=== PATIENT | female | born 1945 ===

== ENCOUNTER 2020-06-07 07:04 | Emergency (ER) | payer MEDICARE, MEDICAID, SELFPAY ==
--- NOTE | 2020-06-07 07:17 | XR_ITS ---
EXAMINATION: XR SHOULDER, LEFT CLINICAL INFORMATION: Pain post fall COMPARISON: None TECHNIQUE: 2 views of the left shoulder. FINDINGS: There is acute angulation of the left lateral humeral neck and greater tuberosity. There is also a transverse faint line of increased sclerosis in the left humeral neck. Findings are suggestive of nondisplaced fracture. Glenohumeral alignment is normal. There is mild arthritis at the acromioclavicular joint. There is faint soft tissue calcification superior to the humeral head. XR/XR shoulder LT min 2V IMPRESSION: Probable nondisplaced humeral neck fracture involving the greater tuberosity.
--- NOTE | 2020-06-07 07:17 | ED.FALL ---
HPI - Fall General Chief Complaint: Fall Stated Complaint: fall, left arm/shoulder pain Time Seen by Provider: 06/07/20 07:17 Source: patient and EMS Mode of arrival: EMS Limitations: no limitations History of Present Illness MD complaint: fall Onset (ago): minute(s) (just [employer]) Fall from: standing Fall witnessed: no Place fall occurred: home Loss of consciousness: none Prolonged down time: no Symptoms prior to fall: none Context: tripped/slipped Location of injury - extremities: left: arm Related Data Previous Rx's Medication Instructions Recorded ondansetron 4 mg PO Q8H PRN #20 tab 06/07/20 oxycodone 5 mg PO Q6H PRN #20 tab 06/07/20 walker #1 ea 06/07/20 Allergies Allergy/AdvReac Type Severity Reaction Status Date / Time Sulfa (Sulfonamide Allergy Mild N/V Unverified 03/02/20 14:34 Antibiotics) Sulfamethoxazole Allergy Unknown vomiting Uncoded 02/08/20 00:00 Review of Systems Review of Systems: Constitutional : No Fever, No Chills ENT/Mouth : No Ear Pain, No Hoarseness, No sore throat Eyes: No Eye Pain, No Swelling, No Redness, No Foreign Body Cardiovascular : No Chest Pain, No SOB Respiratory : No Cough, No Dyspnea Gastrointestinal : No Nausea, No Vomiting, No Diarrhea, No abdominal Pain Genitourinary : No Dysuria, No Hematuria Musculoskeletal : positive joint pain, No Myalgias, No Joint Swelling Skin : No Skin lacerations, No rash Neuro : No Weakness, No Numbness, No Loss of Consciousness, No Dizziness, No Headache Psych : No Anxiety/Panic, No Depression Heme/Lymph: no easy bruising, no Lymphadenopathy Endocrine : No Polyuria, No Polydipsia All other systems reviewed and are negative [facility] Past Medical History Attestation statement: The following information was validated with the patient. Medical History COPD (chronic obstructive pulmonary disease) Diabetes HTN (hypertension) Osteosarcoma Social History Social History (Updated 06/07/20 @ 07:39 by Fatmata Bay DO) Alcohol intake: never Smoking Status: Former smoker Smoked in Last 30 Days: No Use of substances other than those prescribed or required for medical reasons: No Advance Directives: No Advance Directives Information Provided: Yes Physical Exam Vital Signs: Vital Signs: Last Vital Signs Temp 98.0 F 06/07/20 07:52 Pulse 87 06/07/20 09:01 Resp 13 06/07/20 09:01 BP 157/82 H 06/07/20 09:01 Pulse Ox 93 06/07/20 09:01 Body Mass Index 26.9 Appearance: Alert. Oriented X3. No acute distress. Eyes: Pupils equal, round and reactive to light. ENT: Pharynx normal. Neck: Normal inspection. Neck supple. CVS: Normal heart rate and rhythm. Pulses normal. Respiratory: No respiratory distress. Breath sounds normal. Abdomen: Soft and nontender. Skin: Skin warm and dry. Normal skin color. Normal skin turgor. Extremities: No lower extremity edema. No calf ttp L prosthetic BKA, LUE distal NV intact, ttp along L prox humerus Neuro: Oriented X 3. No motor deficit. No sensory deficit. Course Course Course Narrative: patient doing well with tripod walker cleared by PT for home CM involved for help getting walker, Rx sent for pati walker Procedures Orthopedic Splinting/Casting Injury #1: Side: left Upper Extremity Injury Location: upper arm Upper Extremity Immobilizer: sling/shoulder immobilizer MDM - Fall MDM Narrative Medical decision making narrative: 75 yo female tripped on her slipper fell no head or neck pain isolated injury to L upper arm - distal NV intact, will give pain medications and xray, dispo per result and findings, no AC therapy Discharge Plan Discharge Clinical Impression: Fracture, humerus Qualifiers: Encounter type: initial encounter Humerus Location: surgical neck Fracture type: closed Fracture morphology: unspecified fracture morphology Fracture alignment: nondisplaced Laterality: left Qualified Code(s): S42.215A - Unspecified nondisplaced fracture of surgical neck of left humerus, initial encounter for closed fracture Patient Disposition: Home, Self-Care Instructions: Proximal Humerus Fracture (ED) Additional Instructions: return to ED for any worsening symptoms or concerns wear sling except to shower until cleared Prescriptions: New ondansetron 4 mg tablet,disintegrating 4 mg PO Q8H PRN (Reason: nausea and vomiting) Qty: 20 RF: 0 oxycodone 5 mg tablet 5 mg PO Q6H PRN (Reason: pain) Qty: 20 RF: 0 (DME) walker Misc See Rx Instructions .ROUTE .MEDSUPPLY Qty: 1 RF: 0 Referrals: Raymond Simmons PA-C [Physician Gun Stock Checker] - 2 weeks
[2020-06-07 07:21] VITALS: BP 170/66; BP 183/81; PULSE 79; PULSE 98; RESP 14; TEMP 36.7; O2SAT 96; O2SAT 98; BMI 26.9
[2020-06-07 07:52] VITALS: BP 183/81; PULSE 98; RESP 14; TEMP 36.7; O2SAT 98
[2020-06-07] MEDS: oxyCODONE HCl Immed Release 5 MG TABLET PO (08:34)
--- NOTE | 2020-06-07 08:42 | PC.NURSE ---
pt has been medicated for pain, has sling applied to left arm and awaits dispo. She was medicated for pain and is resting quietly.
[2020-06-07 09:01] VITALS: BP 157/82; PULSE 87; RESP 13; O2SAT 93
--- NOTE | 2020-06-07 09:06 | PC.NURSE ---
Md asked for pt ambulation trial. Pt states she uses a walker, will not be able to use walker with arm sling. MD ordered PT consult for tripod cane or cane.
[2020-06-07 10:07] VITALS: BP 157/82; PULSE 87; O2SAT 93
--- NOTE | 2020-06-07 10:57 | MHC.CM.ED ---
Received case management consult. Patient came to ER after a fall. Found to have left humerus fracture. Physical therapy eval completed. Home services and a hemiwalker are recommended. Met with patient in regards to d/c planning. Patient lives at [facility], uses a walker for mobility and had no services prior to coming to the ER. PCP verified. Patient agreeable to referral to [facility]. [facility] is not able to accept patient because the facility will not allow them into the building because they treat Covid patients. Referral broadcasted in [employer] Action chair van arranged via [employer] with chart. Patient, Dr Bay and Aliza PINA aware. Continue to monitor for d/c needs.
== END 2020-06-07 11:48 | disposition home or self-care (01) ==
PROVIDERS: Emergency Provider Emergency Medicine; PCP Hospitalist
DX: S42.215A Unspecified nondisplaced fracture of surgical neck of left humerus, initial encounter for closed fracture (principal); W01.0XXA Fall on same level from slipping, tripping and stumbling without subsequent striking against object, initial encounter; E11.9 Type 2 diabetes mellitus without complications; I10 Essential (primary) hypertension; Y93.9 Activity, unspecified; Y92.019 Unspecified place in single-family (private) house as the place of occurrence of the external cause; Y99.9 Unspecified external cause status
CPT/HCPCS: 73030; 97162; 99284

== ENCOUNTER 2020-06-27 11:44 | Outpatient (REF) | payer MEDICARE, MEDICAID, SELFPAY ==
--- NOTE | 2020-06-27 13:31 | XR_ITS ---
EXAMINATION: XR SHOULDER, LEFT CLINICAL INFORMATION: Displaced fracture greater tuberosity COMPARISON: June 07, 2020 TECHNIQUE: Two views of the left shoulder. FINDINGS: There is stable appearance of the surgical neck nondisplaced fracture of the left humeral head with essentially nondisplaced fracture of the greater tuberosity. No dislocation is evident. There is calcific tendinitis seen. No periosteal new bone formation appreciated. XR/XR shoulder LT min 2V IMPRESSION: No significant change in alignment of proximal left humeral neck and greater tuberosity fracture. Calcific tendinitis.
== END 2020-06-27 11:45 | disposition home or self-care (01) ==
LOC: HO.HOSX 11:44
PROVIDERS: Visit Provider Physician Assistant
DX: S42.253A Displaced fracture of greater tuberosity of unspecified humerus, initial encounter for closed fracture (principal); Z87.891 Personal history of nicotine dependence
CPT/HCPCS: 73030; 99202

== ENCOUNTER 2020-07-20 12:18 | Outpatient (REF) | payer MEDICARE, MEDICAID, SELFPAY ==
--- NOTE | ~2020-07-20 | XR_ITS ---
EXAMINATION: XR SHOULDER, LEFT CLINICAL INFORMATION: Fracture of the upper end of the left humerus. COMPARISON: 06/27/2020 TECHNIQUE: Two views of the left shoulder. FINDINGS: There is a fracture of the right humeral neck again noted. Unchanged alignment from prior with mild impaction. Increased sclerosis along the fracture line with early periosteal reaction seen. The glenohumeral joint is well aligned with small marginal osteophytes present. The acromioclavicular joint is intact. The visualized lung is clear. The visualized ribs are intact. XR/XR shoulder LT min 2V IMPRESSION: Unchanged alignment of the left humeral neck fracture with increased sclerosis along the fracture margin and early periosteal reaction.
== END 2020-07-20 12:19 | disposition home or self-care (01) ==
LOC: HO.HOSX 12:18
PROVIDERS: Visit Provider Physician Assistant
DX: S42.202D Unspecified fracture of upper end of left humerus, subsequent encounter for fracture with routine healing (principal)
CPT/HCPCS: 73030; 99212

== ENCOUNTER → 2020-07-20 14:29 | Outpatient (BNVA) | payer MEDICARE, MEDICAID, SELFPAY | PROVIDERS: PCP Hospitalist; Visit Provider Physician Assistant | DX: S42.202D Unspecified fracture of upper end of left humerus, subsequent encounter for fracture with routine healing (principal) | CPT/HCPCS: 73030; 99212 ==

== ENCOUNTER 2024-03-25 20:38 | Emergency (ER) | payer MEDICARE, MEDICAID, SELFPAY ==
--- NOTE | ~2024-03-25 | XR_ITS ---
EXAMINATION: XR SHOULDER, RIGHT CLINICAL INFORMATION: Pain after fall COMPARISON: Humeral radiographs performed earlier in the day on March 25, 2024 TECHNIQUE: AP and Y view of the right shoulder. FINDINGS/ XR/XR shoulder RT min 2V IMPRESSION: Minimally displaced two-part humeral head fracture. Glenohumeral joint remains located. Soft tissue structures within normal limits. Electronically signed by: Kit Mandujano DO 03/25/2024 11:11 PM EDT
--- NOTE | ~2024-03-25 | XR_ITS ---
EXAMINATION: XR HUMERUS, RIGHT CLINICAL INFORMATION: Fall, pain COMPARISON: None available. TECHNIQUE: AP and lateral views of the right humerus. FINDINGS/ XR/XR humerus RT IMPRESSION: Overhanging osteophyte versus minimally displaced fracture of the humeral head. This is only appreciated on the AP view. Recommend further evaluation with dedicated shoulder radiographs. Electronically signed by: Kit Mandujano DO 03/25/2024 09:58 PM EDT
[2024-03-25 20:43] VITALS: BP 129/59; BP 130/68; PULSE 60; PULSE 70; RESP 18; TEMP 36.7; O2SAT 93; O2SAT 94; BMI 28.9
[2024-03-25 20:50] VITALS: BP 129/59; PULSE 60; RESP 18; TEMP 36.7; O2SAT 93
[2024-03-25] MEDS: Acetaminophen 325 MG TABLET 650 MG PO (21:29)
[2024-03-25] MEDS: Lidocaine HCl 1 % MPF 2 ML VIAL 4 ML INFILTRATI (22:20)
--- NOTE | 2024-03-25 22:23 | ED_ITS ---
HPI - Fall General Chief Complaint: Fall Stated Complaint: FALL WITH 1/2 INCH ARM LACERATION Time Seen by Provider: 03/25/24 21:09 Source: patient and EMS Mode of arrival: EMS Limitations: no limitations History of Present Illness ED Provider: Dr. Astrid Vega HPI Narrative: The emergency room complaining of a fall. Patient states that she was walking from the bathroom towards her bedroom and she landed on her right shoulder. Patient states that she did not hit her head and did not lose consciousness. Patient states that she only takes aspirin, no other blood thinners. Patient donnelly stained a laceration to left forearm. Patient states that her right shoulder area/humerus area hurts the most. Related Data Home Medications ?Medication ?Instructions ?Recorded ?Confirmed albuterol sulfate 90 mcg/actuation 1 inh inhalation QID 06/22/20 aerosol inhaler (ProAir HFA) amlodipine 5 mg tablet 5 mg PO DAILY 06/22/20 atorvastatin 20 mg tablet (Lipitor) 20 mg PO DAILY 06/22/20 budesonide-formoterol HFA 160 2 puff inhalation BID 06/22/20 mcg-4.5 mcg/actuation aerosol inhaler (Symbicort) buprenorphine 20 mcg/hour weekly 1 patch transdermal QWEEK 06/22/20 transdermal patch (Butrans) carvedilol 25 mg tablet 25 mg PO BID 06/22/20 cholecalciferol (vitamin D3) 50 50 mcg PO DAILY 06/22/20 mcg (2,000 unit) capsule cyanocobalamin (vitamin B-12) 1,000 mcg PO DAILY 06/22/20 1,000 mcg/15 mL oral liquid dexlansoprazole 60 mg 60 mg PO DAILY 06/22/20 capsule,biphase delayed release (Dexilant) furosemide 40 mg tablet 40 mg PO DAILY 06/22/20 hydroxyzine HCl 25 mg tablet 25 mg PO BEDTIME 06/22/20 prochlorperazine maleate 10 mg 10 mg PO BID PRN 06/22/20 tablet umeclidinium 62.5 mcg-vilanterol 1 inh inhalation DAILY 06/22/20 25 mcg/actuation powdr for inhalation (Anoro Ellipta) Previous Rx's ?Medication ?Instructions ?Recorded ondansetron 4 mg disintegrating 4 mg PO Q8H PRN nausea and 06/07/20 tablet vomiting #20 tabs oxycodone 5 mg tablet 5 mg PO Q6H PRN pain #20 tabs 06/07/20 walker #1 ea 06/07/20 oxycodone 5 mg tablet 5 mg PO BID PRN pain #8 tabs 03/25/24 Allergies Allergy/AdvReac Type Severity Reaction Status Date / Time Sulfa (Sulfonamide Allergy Mild N/V Verified 03/25/24 20:46 Antibiotics) Sulfamethoxazole Allergy Unknown vomiting Uncoded 03/25/24 20:46 Review of Systems Review of Systems: Constitutional : No Weight loss, No Fever, No Chills, No Night Sweats, No Fatigue, No Malaise ENT/Mouth : No Hearing loss, No Ear Pain, No Nasal Congestion, No Sinus Pain, No Hoarseness, No sore throat, No Rhinorrhea, No Swallowing Difficulty Eyes: No Eye Pain, No Swelling, No Redness, No Foreign Body, No Discharge, No Vision Changes Cardiovascular : No Chest Pain, No SOB, No Dyspnea on Exertion, No Orthopnea, No Edema, No Palpitations Respiratory : No Cough, No Sputum, No Wheezing, No Smoke Exposure, No Dyspnea Gastrointestinal : No Nausea, No Vomiting, No Diarrhea, No Constipation, No abdominal Pain, No Hematochezia, No Melena Genitourinary : no irregular bleeding, No Dysuria, No Urinary Frequency, No Hematuria, No Urinary Incontinence, No Urgency, No Flank Pain, No Urinary Flow Changes, No Hesitancy Musculoskeletal : Complaining of right shoulder pain Skin: Complaining of a laceration to the left forearm Neuro : No Weakness, No Numbness, No Paresthesias, No Loss of Consciousness, No Dizziness, No Headache Psych : No Anxiety/Panic, No Depression, No SI/HI/AH/VH, No Social Issues, Heme/Lymph: No Bruising, No Bleeding,No Lymphadenopathy Endocrine : No Polyuria, No Polydipsia, No Temperature Intolerance [facility] Past Medical History Medical History Osteosarcoma Diabetes COPD (chronic obstructive pulmonary disease) HTN (hypertension) Surgical History H/O excision of ganglion cyst History of cholecystectomy History of partial hysterectomy History of repair of inguinal hernia History of tubal ligation History of umbilical hernia repair Social History Social History Alcohol intake: never Smoked in Last 30 Days: No Use of substances other than those prescribed or required for medical reasons: No Advance Directives: No Advance Directives Information Provided: No Do you have a plan to hurt others: No Plan Current occupational status: disabled Current occupation: left handed Physical Exam Vital Signs: Vital Signs: Last Vital Signs Temp 98.0 F 03/25/24 20:50 Pulse 60 03/25/24 20:50 Resp 18 03/25/24 20:50 BP 129/59 L 03/25/24 20:50 Pulse Ox 93 03/25/24 20:50 O2 Del Method Room Air 03/25/24 20:50 BMI result Body Mass Index 28.9 Const: Other: Appearance: Alert. Oriented X3. No acute distress. Eyes: Pupils equal, round and reactive to light. ENT: Pharynx normal. Neck: Normal inspection. Neck supple. No lymph nodes noted. No crepitus CVS: Normal heart rate and rhythm. Pulses normal. Normal S1 and S2 Respiratory: No respiratory distress. Breath sounds normal. No Wheezing. No rales Abdomen: Soft and nontender. No rigidity. No distention. Skin: Skin warm and dry. Normal skin color. Normal skin turgor. Extremities: No lower extremity edema. Patient is able to flex and extend the right wrist elbow. However, patient has a lot of pain on the right shoulder. No clavicular pain to palpation. Neuro: Oriented X 3. No motor deficit. No sensory deficit. Moving all extremities. No slurred speech. CN 2 through 12 grossly intact Psych: calm, cooperative, normal affect Medications Administered Discontinued Medications Generic Name Dose Route Start Last Admin Trade Name Bandarq PRN Reason Stop Dose Admin Acetaminophen 650 mg 03/25/24 21:20 03/25/24 21:29 Acetaminophen 325 Mg Tablet PO 03/25/24 21:21 650 mg ONCE ONE Administration Lidocaine HCl 5 ml 03/25/24 21:18 03/25/24 22:21 Lidocaine Hcl 2 % 20 Ml Vial INFILTRATI 03/25/24 21:19 Not Given ONCE ONE Lidocaine HCl 4 ml 03/25/24 22:17 03/25/24 22:20 Lidocaine Hcl 1 % Mpf 2 Ml Vial INFILTRATI 03/25/24 22:18 4 ml ONCE ONE Administration Oxycodone HCl 5 mg 03/25/24 22:18 03/25/24 22:47 Oxycodone Hcl Immed Release 5 Mg Tablet PO 03/25/24 22:19 5 mg ONCE ONE Administration Procedures Laceration Laceration 1: Site: upper extremity Side (If applicable): left Size (cm): 2 Description: stellate and irregular Depth: simple, single layer Local Anesthetic: lidocaine 1% Amount of anesthesia used (mL): 6 Pre-repair: wound explored and irrigated extensively Skin layer closed with: nylon Size (cm): 5-0 Number of sutures: 5 Technique: simple, interrupted Medical Decision Making Medical Decision Making MDM Narrative: Patient's laceration in the left forearm needed stitches, 5, tolerated with the procedure. Bleeding controlled -my interpretation of x-ray of the shoulder on the right: There is a fracture, needs to follow-up with Orthopedics, sling has been placed -orthopedics PA made aware -I discussed with the patient if she feels comfortable going back to her current living situation, patient lives in assisted living. Patient states that she has good care even at night if she needs help Differential Diagnosis Differential Diagnoses: The differential diagnosis associated with the presentation includes (Shoulder dislocation, humerus fracture, clavicular fracture, laceration) Independent Interpretation I performed an independent interpretation of an: Plain X-Ray Radiology Impression Discussion of test interpretation with radiology: I have reviewed the radiologist's reading. Radiologist Impression: XR/XR shoulder RT min 2V IMPRESSION: Minimally displaced two-part humeral head fracture. Glenohumeral joint remains located. Soft tissue structures within normal limits. Discharge Plan Discharge Clinical Impression: Fracture, humerus, Laceration of skin of forearm Patient Disposition: Home, Self-Care Instructions: Care For Your Stitches (ED), Arm Fracture in Adults (ED), How to Use a Sling (ED) Additional Instructions: Please follow-up with your primary care physician tomorrow. If you have any worsening or new symptoms, please return to the emergency room or call 911 Prescriptions: New oxycodone 5 mg tablet 5 mg PO BID PRN (Reason: pain) Qty: 8 0RF Rx Instructions: Partial Fill upon patient request. No Action ondansetron 4 mg tablet,disintegrating 4 mg PO Q8H PRN (Reason: nausea and vomiting) Qty: 20 0RF oxycodone 5 mg tablet 5 mg PO Q6H PRN (Reason: pain) Qty: 20 0RF Rx Instructions: humerus fracture (DME) walker Misc See Rx Instructions .ROUTE .MEDSUPPLY Qty: 1 0RF Rx Instructions: As directed Referrals: Raymond Simmons PA-C [Physician Business Strategy Manager] - 03/26/24 Print Language: Yakut
[2024-03-25] MEDS: oxyCODONE HCl Immed Release 5 MG TABLET PO (22:47)
[2024-03-25 23:48] VITALS: BP 134/64; PULSE 67; RESP 16; TEMP 37.1; O2SAT 98
[2024-03-26] MEDS: oxyCODONE HCl Immed Release 5 MG TABLET PO (00:34)
[2024-03-26 01:14] VITALS: BP 134/64; PULSE 67; RESP 16; TEMP 37.1; O2SAT 98
== END 2024-03-26 01:14 | disposition home or self-care (01) ==
PROVIDERS: Emergency Provider Emergency Medicine; PCP Family Medicine
DX: S41.111A Laceration without foreign body of right upper arm, initial encounter (principal); M79.601 Pain in right arm; W01.10XA Fall on same level from slipping, tripping and stumbling with subsequent striking against unspecified object, initial encounter; Y93.89 Activity, other specified; Y92.89 Other specified places as the place of occurrence of the external cause; Y99.8 Other external cause status; Z79.899 Other long term (current) drug therapy
CPT/HCPCS: 12031; 73030; 73060; 99284; J2003

== ENCOUNTER 2024-03-31 08:22 | Outpatient (REF) | payer MEDICARE, MEDICAID, SELFPAY | END 2024-03-31 08:23 | disposition home or self-care (01) | LOC: HO.HOSX 08:22 | PROVIDERS: Visit Provider Physician Assistant | DX: M25.511 Pain in right shoulder (principal); S42.209A Unspecified fracture of upper end of unspecified humerus, initial encounter for closed fracture | CPT/HCPCS: 73030; 99212 ==

== ENCOUNTER 2024-03-31 14:32 | Outpatient (AMB) | payer MEDICARE, MEDICAID, SELFPAY ==
--- NOTE | 2024-03-31 14:34 | A.OFFVIS_ITS ---
Intake Visit Reasons: ED f/u Fx humerus Intake Note: Cathy a 79 year old left hand dominant female who presents today for an ER follow up of right humerus fx, DOI 03/25/24. Patient reports that she fell at home when going to her bathroom, she landed on her right side. She presented to [facility] ER where xrays were taken and referred to orthopedics. Sutures were applied to her left forearm. She has constant pain, no numbness or tingling. Finds some relief with Tylenol. Allergies Sulfa (Sulfonamide Antibiotics) Allergy (Mild, Verified 03/31/24 14:38) N/V Sulfamethoxazole Allergy (Unknown, Uncoded 03/31/24 14:38) vomiting Medication List - Last Reconciled 03/31/24 by Raymond Simmons PA-C albuterol sulfate 90 mcg/actuation (ProAir HFA) 1 inh inhalation QID amlodipine 5 mg PO DAILY atorvastatin (Lipitor) 20 mg PO DAILY budesonide-formoterol 160-4.5 mcg/actuation (Symbicort) 2 puffs inhalation BID [id number] 160-9-4.8 mcg/actuation (Breztri Aerosphere) inhalations inhalation buprenorphine 20 mcg/hour (Butrans) 1 patch transdermal QWEEK carvedilol 25 mg PO BID cholecalciferol (vitamin D3) 50 mcg PO DAILY empagliflozin (Jardiance) 10 mg PO DAILY furosemide 40 mg PO DAILY gabapentin mg PO hydroxyzine HCl 25 mg PO BEDTIME isosorbide mononitrate ER mg PO omeprazole 40 mg PO DAILY torsemide 20 mg PO BID walker As directed HPI HPI ED f/u Fx humerus: Details: 79-year-old left hand dominant female who presents to the office today for an ER follow-up of right humerus injury, 03/25/24. She reports she fell at home when she was going to bathroom and landed on her right side. She was seen at ER where x-rays were performed and she was referred to our office. She currently states she has constant pain in her arm that is aggravated with overhead reaching. She denies any numbness or tingling. She has been taking Tylenol with mild relief. She had a left humerus fracture in 2020. [facility] Medical History Osteosarcoma Diabetes COPD (chronic obstructive pulmonary disease) HTN (hypertension) Surgical History H/O excision of ganglion cyst History of cholecystectomy History of partial hysterectomy History of repair of inguinal hernia History of tubal ligation History of umbilical hernia repair Social History Alcohol intake: never Current occupational status: disabled Current occupation: left handed Review of Systems Const All systems reviewed & are unremarkable except as noted in HPI and below Physical Exam Extrem Other: Right shoulder: Normal to inspection. No tenderness over the proximal humerus which extends down the arm. Anterior deltoid sensation intact. Elbow and wrist ROM intact. NVI. Results Reviewed Results Reviewed: XR shoulder RT min 2V obtained in the office today IMPRESSION: Stable proximal humerus fracture with interval healing Assessment & Plan Assessment & Plan (1) Fracture of proximal humerus with routine healing: Code(s): S42.209D - Unspecified fracture of upper end of unspecified humerus, subsequent encounter for fracture with routine healing Category: Medical Plan She will continue using her sling for comfort. She can continue letting her arm dangle on her side for pendulums. No lifting with her right arm. I would like to see her back in 4 weeks with new x-rays, sooner if needed. Orders: Orders XR shoulder RT min 2V 03/31/24 M25.511 - Pain in right shoulder Medications: New tramadol 50 mg PO BEDTIME 7 tabs 0RF 7 days Discontinued ondansetron Discontinued Reason: Patient no longer taking 4 mg PO Q8H PRN 20 tabs 0RF nausea and vomiting oxycodone humerus fracture Discontinued Reason: Patient no longer taking 5 mg PO Q6H PRN 20 tabs 0RF pain oxycodone Partial Fill upon patient request. Discontinued Reason: Patient no longer taking 5 mg PO BID PRN 8 tabs 0RF pain Patient Instructions: Scribed for Raymond Simmons PA-C, by Harshil Valera medical transcription editor, on 03/31/2024 at 2:30 PM EST.? I, Raymond Simmons PA-C, have personally reviewed and agree with the information entered by the scribe. Coding Level of Care Code Global (96518) Diagnoses Fracture of proximal humerus with routine healing S42.209D
== END 2024-03-31 15:45 | disposition home or self-care (01) ==
PROVIDERS: PCP Family Medicine; Visit Provider Physician Assistant
DX: S42.201D Unspecified fracture of upper end of right humerus, subsequent encounter for fracture with routine healing (principal)
CPT/HCPCS: 99214

== ENCOUNTER 2024-04-26 08:24 | Outpatient (REF) | payer MEDICARE, MEDICAID, SELFPAY | END 2024-04-26 08:25 | disposition home or self-care (01) | LOC: HO.HOSX 08:24 | PROVIDERS: Visit Provider Physician Assistant | DX: M25.511 Pain in right shoulder (principal); S42.209D Unspecified fracture of upper end of unspecified humerus, subsequent encounter for fracture with routine healing | CPT/HCPCS: 73030; 99212 ==

== ENCOUNTER 2024-04-26 14:48 | Outpatient (AMB) | payer MEDICARE, MEDICAID, SELFPAY ==
--- NOTE | 2024-04-26 15:15 | MHC.OFFVIS ---
Intake Visit Reasons: ov 4wk f/u Rt prox hum fx w xrays Intake Note: Cathy is a 79 year old right hand dominant female who presents today with he daughter for a follow up of her right proximal humerus fracture. She presents today wearing her sling but states that she is out of the sling more than in the sling. She has occasional pain worse with increased activity. She is unable to lift the arm laterally. Denies numbness and tingling. Allergies Sulfa (Sulfonamide Antibiotics) Allergy (Mild, Verified 03/31/24 14:38) N/V Sulfamethoxazole Allergy (Unknown, Uncoded 03/31/24 14:38) vomiting Medication List - Last Reconciled 04/26/24 by Raymond Simmons PA-C albuterol sulfate 90 mcg/actuation (ProAir HFA) 1 inh inhalation QID amlodipine 5 mg PO DAILY atorvastatin (Lipitor) 20 mg PO DAILY budesonide-formoterol 160-4.5 mcg/actuation (Symbicort) 2 puffs inhalation BID kexlqltgnu-xodfeort-xavjaicfth 160-9-4.8 mcg/actuation (Breztri Aerosphere) inhalations inhalation buprenorphine 20 mcg/hour (Butrans) 1 patch transdermal QWEEK carvedilol 25 mg PO BID cholecalciferol (vitamin D3) 50 mcg PO DAILY empagliflozin (Jardiance) 10 mg PO DAILY furosemide 40 mg PO DAILY gabapentin mg PO hydroxyzine HCl 25 mg PO BEDTIME isosorbide mononitrate ER mg PO omeprazole 40 mg PO DAILY torsemide 20 mg PO BID tramadol 50 mg PO BEDTIME 7 days walker As directed HPI HPI ov 4wk f/u Rt prox hum fx w xrays: Details: 79-year-old left hand dominant female who returns to the office today with her daughter for a follow-up of right shoulder fracture. She continues to have occasional pain in her shoulder that is aggravated with activities and lifting items a certain way. She is unable to lift her arm laterally. She denies any numbness or tingling. She has been out of her sling more than in the sling. She lives in assisted living. [facility] Medical History Osteosarcoma Diabetes COPD (chronic obstructive pulmonary disease) HTN (hypertension) Surgical History H/O excision of ganglion cyst History of cholecystectomy History of partial hysterectomy History of repair of inguinal hernia History of tubal ligation History of umbilical hernia repair Social History Alcohol intake: never Current occupational status: disabled Current occupation: left handed Review of Systems Const All systems reviewed & are unremarkable except as noted in HPI and below Physical Exam Extrem Other: Right shoulder: Normal to inspection. No tenderness over the proximal humerus which extends down the arm. Anterior deltoid sensation intact. Elbow and wrist ROM intact. NVI. Results Reviewed Results Reviewed: XR shoulder RT min 2V obtained in the office today Stable proximal humerus fracture with interval healing Assessment & Plan Assessment & Plan (1) Fracture of proximal humerus with routine healing: Code(s): S42.209D - Unspecified fracture of upper end of unspecified humerus, subsequent encounter for fracture with routine healing Category: Medical Qualifiers: Fracture type: closed Laterality: right Plan She is going to begin a course of physical therapy. We will order home physical therapy as she lives in assisted living and does not have access to transportation. We will discontinue her sling today. She can begin using her walker as long as she is pain free. She can do light tasks such as laundry as she uses only her left arm and carries 5 articles of clothing at a time which I think is reasonable. She will avoid any type of lifting, pushing, pulling, or carrying greater than a cellphone with her right arm. I would like to see her back in 6 weeks with x-rays, sooner if needed. ? Orders: Orders XR shoulder RT min 2V 04/26/24 M25.511 - Pain in right shoulder Patient Instructions: Scribed for Raymond Simmons PA-C, by Harshil Valera medical records supervisor, on 04/26/2024 at 3:15 PM EST.? I, Raymond Simmons PA-C, have personally reviewed and agree with the information entered by the scribe. Coding Level of Care Code Global (71306) Diagnoses Fracture of proximal humerus with routine healing S42.209D Fracture type: closed Laterality: right
== END 2024-04-26 15:26 | disposition home or self-care (01) ==
PROVIDERS: PCP Family Medicine; Visit Provider Physician Assistant
DX: S42.201A Unspecified fracture of upper end of right humerus, initial encounter for closed fracture (principal)
CPT/HCPCS: 99213

== ENCOUNTER 2024-06-21 09:51 | Outpatient (REF) | payer MEDICARE, MEDICAID, SELFPAY | END 2024-06-21 09:52 | disposition home or self-care (01) | LOC: HO.HOSX 09:51 | PROVIDERS: Visit Provider Physician Assistant | DX: Z13.89 Encounter for screening for other disorder (principal) ==

== ENCOUNTER 2024-10-08 15:04 | Inpatient (IN) | payer MEDICARE, MEDICAID, SELFPAY ==
[2024-10-08] VITALS (16 sets, daily range): BP systolic 86–102; BP diastolic 35–54; PULSE 63–73; RESP 10–20; TEMP 36.5–36.8; O2SAT 92–98; BMI 24.1
--- NOTE | ~2024-10-08 | XR_ITS ---
EXAMINATION: XR CHEST CLINICAL INFORMATION: hypoxia COMPARISON: Chest x-ray 10/08/2024 TECHNIQUE: Frontal view of the chest was obtained. FINDINGS: The lungs are well-expanded and clear acute process. The heart size and pulmonary vascularity is normal. No gross bony abnormality seen. . XR/XR chest 1V IMPRESSION: Unremarkable chest exam. Electronically signed by: Jimmy Hendricks MD 10/11/2024 09:51 AM EDT RP
--- NOTE | ~2024-10-08 | CT_ITS ---
CLINICAL HISTORY: renal fx. urinary hesitancy. no appetite CT abdomen and pelvis without contrast Comparison: None Findings: No consolidation or effusion. Minimal bilateral basilar atelectasis/scarring. The gallbladder is surgically absent. No significant biliary ductal dilatation. Unenhanced liver and spleen within normal limits. Pancreas significantly atrophic and fatty infiltrated. Adrenal glands are unremarkable. Limited evaluation of the kidneys without intravenous contrast but both kidneys appear to be normal shape with no perinephric stranding, fluid or hematoma in no renal or ureteral stones. No hydronephrosis or hydroureter. Distal esophageal wall thickening and possible small hiatal hernia. No bowel obstruction, pneumoperitoneum, or pneumatosis. Mild sigmoid colon diverticulosis. Small fat containing upper to mid abdomen anterior right paramidline fat containing hernia with no bowel involvement and minimal stranding in the fat. Stomach is decompressed with apparent diffuse wall thickening could be due to decompression but other process such as gastritis not excluded. Normal appendix. Uterus is absent. Urinary bladder is unremarkable. Atherosclerotic vascular disease with no aneurysm of the abdominal aorta. No acute fracture. Levoscoliosis. Mild degenerative changes bilateral hips. IMPRESSION: 1. Limited evaluation of the kidneys without intravenous contrast but on noncontrast study no renal abnormality identified. 2. Very small fat containing right paramidline ventral hernia with minimal stranding in the fat which may represent early strangulation. Correlate clinically. 3. Distal esophageal wall thickening may represent esophagitis, small hiatal hernia and apparent diffuse gastric wall thickening which could be from decompression but gastritis not excluded. 4. Additional nonacute findings as described. This document has been electronically signed by: Rachel Voss MD on 10/08/2024 18:37:39
--- NOTE | ~2024-10-08 | XR_ITS ---
EXAMINATION: XR CHEST 1 VIEW HISTORY: sob COMPARISON: Comparison is made with the prior examination dated 10/11/2024. FINDINGS: A single AP portable view of the chest performed at 11:22 AM is submitted. There is mild prominence of the pulmonary vasculature, compatible with congestion. There is no pleural effusion, pneumothorax, or pulmonary vascular congestion. The heart is enlarged. The aorta is calcified. There is degenerative disc disease and scoliosis of the spine. XR/XR chest 1V IMPRESSION: Cardiomegaly and mild pulmonary vascular congestion. Electronically signed by: Aleksandr Michael MD 10/13/2024 11:37 AM EDT
--- NOTE | ~2024-10-08 | XR_ITS ---
CLINICAL HISTORY: Hypotension 1 view chest x-ray Comparison: None Findings: No consolidation, pleural effusion or pneumothorax. Heart size is accentuated by portable technique. No CHF. Thoracolumbar scoliosis. There are surgical clips in the upper abdomen. IMPRESSION: No acute cardiopulmonary process. This document has been electronically signed by: Nikki Villagran DO on 10/08/2024 17:49:05
--- NOTE | 2024-10-08 15:30 | ECG_ITS ---
Test Reason : LIGHTHEADEDNESS Blood Pressure : */* mmHG Vent. Rate : 64 BPM Atrial Rate : 64 BPM P-R Int : 166 ms QRS Dur : 80 ms QT Int : 470 ms P-R-T Axes : 58 1 144 degrees QTcB Int : 484 ms Normal sinus rhythm ST & T wave abnormality, consider lateral ischemia Abnormal ECG When compared with ECG of 13-Apr-2011 12:55, Nonspecific ST and T wave abnormality in anterolateral leads noted Referred By: Elda Zuniga Electronically Signed By: ANTOLIN SERVIN
[2024-10-08] MEDS: 0.9 % Sodium Chloride 1,000 ML 999 ML IV (15:32)
--- NOTE | 2024-10-08 15:34 | ED_ITS ---
HPI - General Adult General Chief complaint: General Medical Stated complaint: NAUSEA,URINE RETENTION,POOR APPETITE,MALAISE Time Seen by Provider: 10/08/24 15:22 Source: patient, EMS, RN notes reviewed and old records reviewed Mode of arrival: EMS History of Present Illness ED Provider: Elda Zuniga PA-C HPI narrative: 79-year-old female with past medical history diabetes, COPD, HTN, CKD, GERD, gout, HLD, peripheral edema, s/p BKA, presenting to the ED EMS from assisted living at [facility] due to lightheadedness, generalized fatigue/weakness, decreased appetite x3 weeks. Per EMS patient was noted they hypotensive. Patient has history reports urinary hesitancy/retention with decreased urine output. Denies cough, CP/SOB, abdominal pain, nausea/vomiting, pedal edema. Related Data Home Medications ?Medication ?Instructions ?Recorded ?Confirmed carvedilol 25 mg tablet 25 mg PO BID 06/22/20 10/08/24 cholecalciferol (vitamin D3) 50 50 mcg PO DAILY 06/22/20 10/08/24 mcg (2,000 unit) capsule gabapentin 300 mg capsule 300 mg PO TID 03/31/24 10/08/24 isosorbide mononitrate 30 mg 90 mg PO DAILY 03/31/24 10/08/24 tablet,extended release 24 hr omeprazole 40 mg capsule,delayed 40 mg PO DAILY@0630 03/31/24 10/08/24 release torsemide 20 mg tablet 40 mg PO DAILY 03/31/24 10/08/24 albuterol sulfate 90 mcg/actuation 2 puff inhalation Q6H PRN 10/08/24 10/08/24 aerosol inhaler Shortness Of Breath Or Wheezing amlodipine 10 mg tablet 10 mg PO DAILY 10/08/24 10/08/24 atorvastatin 40 mg tablet 40 mg PO DAILY 10/08/24 10/08/24 budesonide 160 mcg-glycopyr 9 2 inh inhalation BID 10/08/24 10/08/24 mcg-formot 4.8 mcg/actuation HFA inhaler (Breztri Aerosphere) buprenorphine 20 mcg/hour weekly 1 patch topical FR 10/08/24 10/08/24 transdermal patch (Butrans) empagliflozin 10 mg tablet 10 mg PO DAILY 10/08/24 10/08/24 (Jardiance) hydroxyzine pamoate 25 mg capsule 25 mg PO QID 10/08/24 10/08/24 lisinopril 10 mg tablet 10 mg PO BID 10/08/24 10/08/24 Previous Rx's ?Medication ?Instructions ?Recorded walker #1 ea 06/07/20 Allergies Allergy/AdvReac Type Severity Reaction Status Date / Time Sulfa (Sulfonamide Allergy Mild N/V Verified 10/08/24 15:13 Antibiotics) Sulfamethoxazole Allergy Unknown vomiting Uncoded 10/08/24 15:13 Review of Systems 2 Review of Systems: Yes all other systems are reviewed and are negative Constitutional: Constitutional: Reports as per HPI Neurologic: Denies Abnormal speech present [facility] Past Medical History Attestation statement: The following information was validated with the patient. Source: old records reviewed Medical History (Updated 10/09/24 @ 02:13 by ROBYN Mercado) CKD (chronic kidney disease) stage 3, GFR 30-59 ml/min Osteosarcoma Diabetes COPD (chronic obstructive pulmonary disease) HTN (hypertension) Surgical History History of partial hysterectomy History of cholecystectomy History of tubal ligation H/O excision of ganglion cyst History of umbilical hernia repair History of repair of inguinal hernia Social History Social History Alcohol intake: never Smoked in Last 30 Days: No Use of substances other than those prescribed or required for medical reasons: No Advance Directives: No Advance Directives Information Provided: Yes Do you have a plan to hurt others: No Plan Current occupational status: disabled Current occupation: left handed Physical Exam ED Vital Signs: Vital Signs - 24 hr 10/08/24 15:09 10/08/24 16:26 10/08/24 16:47 Temperature 98.2 F 97.7 F Pulse Rate 66 66 66 Respiratory Rate 17 10 L 20 Blood Pressure 87/38 L 95/44 L 102/51 L Pulse Oximetry 98 96 Oxygen Delivery Method Room Air Room Air 10/08/24 16:59 10/08/24 17:47 10/08/24 17:51 Temperature Pulse Rate 63 68 Respiratory Rate 11 L Blood Pressure 93/54 L 92/52 L 97/45 L Pulse Oximetry Oxygen Delivery Method 10/08/24 18:06 10/08/24 18:21 10/08/24 18:37 Temperature Pulse Rate 64 63 65 Respiratory Rate Blood Pressure 95/49 L 97/49 L 93/46 L Pulse Oximetry Oxygen Delivery Method 10/08/24 20:49 10/08/24 21:11 10/08/24 21:51 Temperature Pulse Rate 67 73 Respiratory Rate 14 14 Blood Pressure 87/38 L 95/50 L 91/51 L Pulse Oximetry 94 Oxygen Delivery Method Room Air 10/08/24 22:27 10/08/24 22:39 10/08/24 23:44 Temperature Pulse Rate 72 71 Respiratory Rate 16 16 Blood Pressure 93/48 L 98/53 L Pulse Oximetry Oxygen Delivery Method BMI result Body Mass Index 24.1 Const General: cooperative, healthy appearing and no acute distress Orientation/consciousness: patient oriented x3 Limitations: no limitations HENMT Head: Yes normal to inspection and Yes atraumatic Ears: hearing grossly normal bilaterally General nose exam: Normal external nose present Face and sinus: Yes normal facial exam Eyes General: appearance normal, both eyes and all related structures EOM: EOMs intact bilaterally Neck Neck: Yes normal visual inspection and Yes no meningeal signs Resp Effort & Inspection: normal respiratory effort and no respiratory distress Auscultation: clear to auscultation bilaterally, no crackles and no wheezes Cardio Rate: regular rate Heart sounds: S1 normal heart sound present and S2 normal heart sound present GI Inspection: Yes normal to inspection Palpation (GI): Soft to palpation, nontender, no guarding and not rigid General: Yes no CVA tenderness Back/Spine/Pelvis Back: no CVA tenderness Skin Rashes: no rashes Wounds: no wounds Neuro General: patient oriented x3, gait normal, tone normal, moves all extremities, no meningeal signs, no focal motor deficits and CN's II-XI intact bilaterally Cranial nerves: Yes CN's II-XII intact bilaterally Cognition (Neuro): normal cognition Speech: No Abnormal speech present Motor exam (neuro): 5/5 motor strength present throughout and no tremor noted Extrem Other: LLE BKA 1-2+ RLE pitting edema Course Course Course Narrative: -bladder scan with 49mL -1640--mild leukopenia 4.4. H&H 9.1/27.7, no priors to compare -hyperkalemic to 5.4, CO2 10 > likely from renal dz, + MALLORY with a BUN of 83, creatinine 3.21 > suspect from hypovolemia however will obtain CT for further eval/rule out obstructive pathology/mass >> no evidence of infection -magnesium low 0.7 > 2 g IV repletion ordered -initial troponin 7 > will obtain repeat. BNP 721 XR chest 1V IMPRESSION: No acute cardiopulmonary process. CT abdomen pelvis wo IV con IMPRESSION: 1. Limited evaluation of the kidneys without intravenous contrast but on noncontrast study no renal abnormality identified. 2. Very small fat containing right paramidline ventral hernia with minimal stranding in the fat which may represent early strangulation. Correlate clinically. 3. Distal esophageal wall thickening may represent esophagitis, small hiatal hernia and apparent diffuse gastric wall thickening which could be from decompression but gastritis not excluded. 4. Additional nonacute findings as described. > will consult General surgery Dr. Avendaño who evaluated patient does not believe there is concern of strangulation at this time. > 1900-case discussed with hospitalist Reevaluation(s) Reevaluation #1: It had been several hours since this admission request was placed, this was not a formal signed out to me, I reached out to the hospitalist, they had ordered a VBG, the patient was acidotic, they are requesting ICU consult and Nephrology consult Venous pH is 7.13, bicarb is 10, the patient was mildly hyperkalemic at 5.4, creatinine is 3.25, albumin 3.1, magnesium was initially 0.7. Thus far, the patient has been covered for sepsis, she received Zosyn. She received 2 gm of magnesium, 2.5 L LR.......I am ordering albumin, another liter of LR.....my plan is to repeat the vbg and bmp, then consult renal Time: 20:25 Reevaluation #2: Repeat labs resulting, the patient was now hyperkalemic at 5.9, no change in bicarb it is 10, creatinine down to 2.8, magnesium 1.4, pH now 7.24......... We will be giving an additional 2 gm of magnesium, 2 gm of calcium gluconate, 10 mg of albuterol, 10 gm of Lokelma..... Time: 22:34 Reevaluation #3: I reach back out to the hospitalist, Dr. Chapin, after further interventions, the patient's systolic blood pressures have remained consistently in the 90s, her MAP has been 63-73, for an hour........they will accept the patient now Time: 23:58 Consultations Consultation #1: speaking with Dr. Her from nephrology....... He is in agreement thus far with interventions the patient has had. He recommends an isotonic bicarb drip with 150 mEq of bicarb in D5W, given at a rate of 75ml/hr....giving an additional 10 gm lokelma in 4 hours, the patient's lisinopril, lasix, jardiance, prilosec should be held Medications Administered Generic Name Dose Route Start Last Admin Trade Name Freq PRN Reason Stop Dose Admin Heparin Sodium (Porcine) 5,000 unit 10/09/24 00:30 10/09/24 01:25 Heparin Sodium,Porcine 5,000 Unit/Ml Vial SUBCUT 5,000 unit BID ANIDE Administration Sodium Bicarbonate 150 meq/ 1,000 mls @ 75 mls/hr 10/08/24 23:45 10/09/24 00:31 Dextrose IV 75 mls/hr .[id number] ANDIE Administration Ondansetron HCl 4 mg 10/09/24 00:22 10/09/24 01:25 Ondansetron Hcl 4 Mg/2 Ml Vial IVPUSH 4 mg Q8H PRN Administration Nausea and Vomiting Discontinued Medications Generic Name Dose Route Start Last Admin Trade Name Freq PRN Reason Stop Dose Admin Acetaminophen 975 mg 10/08/24 23:25 10/08/24 23:51 Acetaminophen 325 Mg Tablet PO 10/08/24 23:26 975 mg ONCE ONE Administration Albuterol Sulfate 7.5 mg/ 10 mg 10/08/24 23:22 10/08/24 23:43 Albuterol Sulfate 2.5 mg INHALE 10/08/24 23:23 10 mg ONCE ONE Administration Gabapentin 300 mg 10/08/24 23:25 10/08/24 23:51 Gabapentin 300 Mg Capsule PO 10/08/24 23:26 300 mg ONCE ONE Administration Hydroxyzine HCl 25 mg 10/08/24 23:25 10/08/24 23:51 Hydroxyzine Hcl 25 Mg Tablet PO 10/08/24 23:26 25 mg ONCE ONE Administration Sodium Chloride 1,000 mls @ 999 mls/hr 10/08/24 15:30 10/08/24 16:51 Ns IV 10/08/24 16:30 Infused .Q1H1M ANDIE Infusion Lactated Ringer's 1,000 mls @ 999 mls/hr 10/08/24 16:00 10/08/24 19:31 Lr IV 10/08/24 17:00 Infused .Q1H1M ANDIE Infusion Magnesium Sulfate 2 gm in 50 mls @ 25 mls/hr 10/08/24 16:36 10/08/24 19:31 Magnesium Sulfate/H2o IV 10/08/24 18:35 Infused ONCE ONE Infusion Piperacillin Sod/Tazobactam 50 mls @ 100 mls/hr 10/08/24 16:41 10/08/24 17:11 Sod 3.375 gm/ Sodium Chloride IV 10/08/24 17:10 Infused ONCE ONE Infusion Lactated Ringer's 500 mls @ 999 mls/hr 10/08/24 18:30 10/08/24 20:49 Lr IV 10/08/24 19:00 Infused .Q31M ANDIE Infusion Lactated Ringer's 1,000 mls @ 999 mls/hr 10/08/24 20:30 10/08/24 22:20 Lr IV 10/08/24 21:30 Infused .Q1H1M ANDIE Infusion Albumin Human 100 mls @ 133.333 mls/hr 10/08/24 21:00 10/08/24 22:39 Kedbumin 25 % IV 10/08/24 22:44 Infused Q1H ANDIE Infusion Magnesium Sulfate 2 gm in 50 mls @ 25 mls/hr 10/08/24 23:21 10/09/24 00:18 Magnesium Sulfate/H2o IV 10/09/24 01:20 Infused ONCE ONE Infusion Calcium Gluconate 2 gm in 100 mls @ 50 mls/hr 10/08/24 23:22 10/09/24 00:18 Calcium Gluconate IV 10/09/24 01:21 Infused ONCE ONE Infusion Ondansetron HCl 4 mg 10/08/24 17:37 10/08/24 17:42 Ondansetron Hcl 4 Mg/2 Ml Vial IVPUSH 10/08/24 17:38 4 mg ONCE ONE Administration Sodium Zirconium Cyclosilicate 10 gm 10/08/24 23:22 10/08/24 23:51 Sodium Zirconium Cyclosilicate 10 Gm Powd.Pack PO 10/08/24 23:23 10 gm ONCE ONE Administration Medical Decision Making Medical Decision Making [facility] Narrative: 79-year-old female with past medical history diabetes, COPD, HTN, CKD, GERD, gout, HLD, peripheral edema, s/p BKA, presenting to the ED EMS from assisted living at the [facility] due to lightheadedness, generalized fatigue/weakness, decreased appetite x3 weeks. On exam hypotensive 87/38, NAD/nontoxic appearing, A&O x3, no focal deficits, lungs CTA. Concern for dehydration/metabolic abnormalities vs atypical ACS vs urinary retention. Rule out infectious etiology. Low suspicion for severe sepsis at this time. Unlikely CVA, PE/DVT Plan: EKG, labs, UA, CXR, IVF, viral testing, re-evaluate, bladder scan Please refer to course for remaining clinical decision making, interpretation of labs/imaging results, and discussions with consultants and/or family members. Differential Diagnosis Differential Diagnoses: The differential diagnosis associated with the presentation includes As above Admission/Observation Consideration of admission/observation: Escalation of care including admission/observation considered Lab Data [facility] Lab Attestation statement: I reviewed the patient's lab results. 10/08/24 16:12 10/08/24 22:34 Labs: Lab Results 10/08/24 10/08/24 10/08/24 Range/Units 16:12 19:33 20:12 WBC 4.4 L (4.8-10.8) X10*3/uL RBC 2.77 L (4.20-5.50) X10*6/uL Hgb 9.1 L (12.0-16.0) g/dl Hct 27.7 L (37.0-47.0) % MCV 100.0 H (80.0-98.0) fL MCH 32.9 (27.0-33.0) pg MCHC 32.9 (31.0-35.0) g/dl RDW 13.7 (11.0-16.0) % Plt Count 154 L (160-400) X10*3/uL MPV 10.5 (9.4-12.3) fL Immature Gran % (Auto) 0.9 H (0.0-0.4) % Neut % (Auto) 59.8 (45-73) % Lymph % (Auto) 26.6 (20-40) % Morton % (Auto) 10.6 (2-11) % Eos % (Auto) 1.4 (0-4) % Baso % (Auto) 0.7 (0-2) % Lymph # (Auto) 1.2 (1.2-4.9) X10*3/uL Morton # (Auto) 0.5 (0.1-1.2) X10*3/uL Eos # (Auto) 0.1 (0.0-0.4) X10*3/uL Baso # (Auto) 0.0 (0.0-0.2) X10*3/uL Abs Immat Gran (auto) 0.04 H (0.00-0.03) X10*3/uL Absolute Neuts (auto) 2.7 (2.0-8.3) x10*3/uL Absolute Nucleated RBC 0.030 H (0.0-0.012) X10*3/uL Nucleated RBC % (auto) 0.7 H (0.0-0.2) /100WBC VBG pH 7.13 L* (7.32-7.43) VBG pCO2 30 mmHg VBG pO2 51 mmHg VBG HCO3 10 L (22-26) mmol/L VBG O2 Saturation 74.0 % VBG Base Excess -17.1 mmol/L Sodium 138 (135-145) mmol/L Potassium 5.4 H (3.3-5.1) mmol/L Chloride 116 H (96-108) mmol/L Carbon Dioxide 10 L* (22-29) mmol/L Anion Gap 17 (12-20) BUN 83 H (9-16) mg/dL Creatinine 3.25 H (0.5-1.4) mg/dL Estim Creat Clear Calc 8.9 Estimated GFR 14 Random Glucose 89 (60-115) mg/dL Lactic Acid 0.6 (0.5-2.0) mmol/L Calcium 6.6 L (8.4-10.2) mg/dL Magnesium 0.7 L* (1.6-2.6) mg/dL Total Bilirubin 0.5 (0.0-1.0) mg/dL Direct Bilirubin 0.2 (0.0-0.5) mg/dL AST 25 (5-31) U/L ALT < 6 (0-31) U/L Alkaline Phosphatase 97 (39-117) U/L Troponin I High Sens 7.0 7.2 (<3.5-17.0) ng/L B-Natriuretic Peptide 721 H (<100) pg/mL Total Protein 5.7 L (6.5-8.0) g/dL Albumin 3.1 L (3.5-5.0) g/dL Influenza Type A (PCR) NEGATIVE (Negative) Influenza Type B (PCR) NEGATIVE (Negative) RSV RNA Qual (PCR) NEGATIVE (Negative) SARS-CoV-2 RNA (RT-PCR) NEGATIVE (Negative) 10/08/24 10/08/24 Range/Units 22:34 22:39 WBC (4.8-10.8) X10*3/uL RBC (4.20-5.50) X10*6/uL Hgb (12.0-16.0) g/dl Hct (37.0-47.0) % MCV (80.0-98.0) fL MCH (27.0-33.0) pg MCHC (31.0-35.0) g/dl RDW (11.0-16.0) % Plt Count (160-400) X10*3/uL MPV (9.4-12.3) fL Immature Gran % (Auto) (0.0-0.4) % Neut % (Auto) (45-73) % Lymph % (Auto) (20-40) % Morton % (Auto) (2-11) % Eos % (Auto) (0-4) % Baso % (Auto) (0-2) % Lymph # (Auto) (1.2-4.9) X10*3/uL Morton # (Auto) (0.1-1.2) X10*3/uL Eos # (Auto) (0.0-0.4) X10*3/uL Baso # (Auto) (0.0-0.2) X10*3/uL Abs Immat Gran (auto) (0.00-0.03) X10*3/uL Absolute Neuts (auto) (2.0-8.3) x10*3/uL Absolute Nucleated RBC (0.0-0.012) X10*3/uL Nucleated RBC % (auto) (0.0-0.2) /100WBC VBG pH 7.24 L (7.32-7.43) VBG pCO2 24 mmHg VBG pO2 79 mmHg VBG HCO3 10 L (22-26) mmol/L VBG O2 Saturation 97.0 % VBG Base Excess -14.9 mmol/L Sodium 138 (135-145) mmol/L Potassium 5.9 H (3.3-5.1) mmol/L Chloride 116 H (96-108) mmol/L Carbon Dioxide 10 L* (22-29) mmol/L Anion Gap 18 (12-20) BUN 71 H (9-16) mg/dL Creatinine 2.80 H (0.5-1.4) mg/dL Estim Creat Clear Calc 10.4 Estimated GFR 16 Random Glucose 102 (60-115) mg/dL Lactic Acid (0.5-2.0) mmol/L Calcium 6.9 L (8.4-10.2) mg/dL Magnesium 1.4 L* (1.6-2.6) mg/dL Total Bilirubin (0.0-1.0) mg/dL Direct Bilirubin (0.0-0.5) mg/dL AST (5-31) U/L ALT (0-31) U/L Alkaline Phosphatase (39-117) U/L Troponin I High Sens (<3.5-17.0) ng/L B-Natriuretic Peptide (<100) pg/mL Total Protein (6.5-8.0) g/dL Albumin (3.5-5.0) g/dL Influenza Type A (PCR) (Negative) Influenza Type B (PCR) (Negative) RSV RNA Qual (PCR) (Negative) SARS-CoV-2 RNA (RT-PCR) (Negative) Independent Interpretation I performed an independent interpretation of an: EKG and Plain X-Ray Radiology Impression Discussion of test interpretation with radiology: I have reviewed the radiologist's reading. Independent Historian Clinical information obtained from an independent historian. History obtained from or confirmed by: EMS External Record Review External record reviewed: Inpatient record, Office record, Outpatient record, Prior outpatient labs, Prior outpatient radiology, Primary care record and Outside ED record Tests considered The following testing was considered but not selected: As above Prescription Management I considered prescription management with: Antibiotic and Other Chronic Conditions Patient?s care impacted by: Diabetes Social Determinants Patient?s care significantly limited by Social Determinants of Health including: Other Social Determinant of Health Critical Care Time Critical Care Time Critical Care Time: Yes Total Critical Care Time: 60 Attestation: I have personally provided critical care time exclusive of time spent on separately billable procedures. Time includes review of lab data, radiology results, discussion with consultants, and monitoring for potential decompensation. Intervention performed as documented. I Sheba Lyons PA-C have also performed 45 minutes of critical care time not including lines and procedures. Discharge Plan Discharge Clinical Impression: MALLORY (acute kidney injury), Hypotension, Hypomagnesemia, Ventral hernia, Acute hyperkalemia Patient Disposition: Admitted As Inpatient
--- OUTSIDE RECORDS SUMMARY | 2024-10-08 16:13 | XMS_ITS | Clinical Summary ---
Author Organization [facility], Address [address] [place] [address] [place] [address] Phone Care Team Providers Care Quality Control Chemist Name Role Phone Jodi Sun MD Primary Care Provider [phone] Allergies Active Allergy Reactions Criticality Noted Date Comments Sulfadiazine Other (see comments) 01/21/2022 Other reaction(s): UPSET STOMACH Medications buPROPion XL (WELLBUTRIN XL) 300 MG 24 hr tablet Take 300 mg by mouth 1 (one) time each day 2 Active tiZANidine (ZANAFLEX) 4 MG tablet Take 4 mg by mouth every 8 (eight) hours if needed 2 Active metFORMIN (GLUCOPHAGE) 500 MG tablet Take 500 mg by mouth in the morning and 500 mg in the evening. Take with meals. 2 Active gabapentin (NEURONTIN) 300 MG capsule Take 300 mg by mouth in the morning and 300 mg in the evening. 2 Active aspirin (ST RAÚL) 81 MG EC tablet Take 81 mg by mouth 1 (one) time each day Active atorvastatin (LIPITOR) 40 MG tablet Take 40 mg by mouth 1 (one) time each day Active Buprenorphine (Butrans) 20 MCG/HR patch weekly Place 1 patch on the skin per week Active carvedilol (COREG) 25 MG tablet Take 25 mg by mouth in the morning and 25 mg in the evening. Take with meals. Active DULoxetine (CYMBALTA) [address] capsule Take 30 mg by mouth in the morning and 30 mg in the evening. Do not crush or chew.. Active Umeclidinium [place] (Incruse Ellipta) 62.5 MCG/ACT aerosol powder Inhale 1 puff 1 (one) time each day Active isosorbide mononitrate (IMDUR) 30 MG 24 hr tablet Take 90 mg by mouth 1 (one) time each day Do not crush or chew. Active Empagliflozin (JARDIANCE PO) Take by mouth 1 (one) time each day Active amLODIPine (NORVASC) 10 MG tablet Take 10 mg by mouth 1 (one) time each day Active omeprazole (PriLOSEC) [address] capsule Take 40 mg by mouth 1 (one) time each day Do not crush or chew. Active budesonide-formo terol (SYMBICORT) 160-4.5 MCG/ACT inhaler Inhale 2 puffs in the morning and 2 puffs before bedtime. Rinse mouth with water after use to reduce aftertaste and incidence of candidiasis. Do not swallow.. Active Cholecalciferol (Vitamin D) 50 MCG (2000 UT) capsule Take 2,000 Units by mouth 1 (one) time each day Active furosemide (LASIX) 20 MG tablet Take 1 tablet (20 mg total) by mouth in the morning and 1 tablet (20 mg total) in the evening. 60 tablet 11 4 Active lisinopril 10 MG tablet TAKE 1 TABLET(10 MG) BY MOUTH IN THE MORNING AND IN THE EVENING 60 tablet 5 4 Active Active Problems Problem Noted Date Diagnosed Date Chronic kidney disease, stage 4 (severe) 024 Peripheral neuropathy 09/01/2023 Hyperlipidemia 09/01/2023 Edema 09/01/2023 Congestive heart failure 09/01/2023 Benign essential hypertension 09/01/2023 Hypercholesterolemia 01/21/2022 Type 2 diabetes mellitus 04/22/2013 Gout 04/28/2012 Immunizations Immunization Administration Dates Next Due DTaP 12/13/2010 Influenza (IM) Preservative Free 04/29/2011 Influenza Whole 03/30/2020,04/16/2016,02/12/2012 ,02/14/2010 Influenza, Unspecified 03/25/2018,2016,03/18/2016,03/14/2015 ,03/24/2014,04/22/2013 Pfizer SARS-COV-2 04/25/2021,07/28/2020,07/07/19 21 Pneumococcal Conjugate 13-Valent 10/14/2014 Pneumococcal Polysaccharide 02/14/2013, Tdap 07/25/2017,05/18/2013 Family History Medical History Relation Comments Coronary artery disease Father Diabetes type II Father Heart attack Father Coronary artery disease Mother Deep vein thrombosis Mother Heart attack Mother Kidney disease Mother Stroke Mother Breast cancer Sister Relation Status Comments Father Mother Sibling Sister Social History Tobacco Use Types Packs/Day Years Used Date Smoking Tobacco: Former Cigarettes Tobacco Cessation:Counseling Given: Not Answered Alcohol Use Standard Drinks/Week Comments No 0 (1 standard drink = 0.6 oz pur e alcohol) Comments Unknown Sex and Gender Information Value Date Recorded Sex Assigned at Not on file Legal Sex Female 5:07 PM EST Gender Identity Not on file Sexual Orientation Not on file Last Filed Vital Signs Vital Sign Reading Time Taken Comments Blood Pressure 110/62 06/17/2024 2:31 PM EST Pulse 65 06/17/2024 2:31 PM EST Temperature - - Respiratory Rate - - Oxygen Saturation - - Inhaled Oxygen Concentration - - Weight - - Height - - Body Mass Index - - Plan of Treatment Upcoming Encounters Date Type Department Care Team (Late st Contact Info) Description 12/16/2024 1:30 PM EDT Office Visit [facility], [address] [place] [phone] Richy Hollis MD [address] [facility] [address] [place] [phone] Health Maintenance Due Date Last Done Comments Diabetes: Ophthalmology Exam 12/26/2021 Diabetes: Pedal Pulse Checked 12/26/2021 Diabetes: Sensory Foot Exam 12/26/2021 Diabetes: Visual Foot Exam 12/26/2021 Diabetes: Hemoglobin A1C 10/05/2024 07/07/2024 Influenza Vaccine (Season Ended) 2025 03/30/2020, 03/25/2018, 02/28/2017, Additional history exists Pneumococcal Vaccine: 50+ Years Completed 10/14/2014, 02/14/2013, 12/13/2010 Pneumococcal Vaccine: Peds (0 to 5 Years) and At-Risk Patients (6 to 49 Years) Discontinued 10/14/2014, 02/14/2013, 12/13/2010 Hepatitis B Vaccine Aged Out No longe r eligible based on patient's age to complete this topic Procedures Procedure Name Priority Date/Time Associated Diagnosis Comments HEMOGLOBIN A1C Routine 07/07/2024 1:34 PM EST Stage 3b chronic kidney disease (HCC) from Last 3 Months or Most Recently Relevant to Health Maintenance Results * (ABNORMAL) Hemoglobin A1c (07/07/2024 1:34 PM EST) Hemoglobin A1C 5.8(H) 4.8 - 5.6 % [facility] Jun Comment: ? Prediabetes: 5.7 - 6.4 ? Diabetes: >6.4 ? Glycemic control for adults with diabetes: <7.0 Blood (Blood, Venous) 07/07/2024 1:34 PM EST 07/07/2024 Richy Hollis MD LAB BLOOD ORDERABLES Final Re sult [facility] Jun [address] [place] [phone] from Last 3 Months or Most Recently Relevant to Health Maintenance Insurance Medicare [place] Medicaid [place] [address] [place] [address] [address] [place] [address] Care Teams Quality Control Chemist Relationship Specialty Start Date End Date Jodi Sun MD [address] [place] [phone] PCP - General Vb Developer 06/17/24
--- OUTSIDE RECORDS SUMMARY | 2024-10-08 16:13 | XMS_ITS | Encounter Summary ---
Author Organization [facility] Address [address] [place] [address] Phone Care Team Providers Care Production Maintenance Mechanic Name Role Phone Jodi Sun MD Primary Care Provider [phone] Encounter Details Date Type Department Care Team (Late Contact Info) Description 05/04/2024 Documentation Only [facility] [address] [place] [address] Sidra Forman [address] [place] [address] Social History Tobacco Use Types Packs/Day Years Used Date Smoking Tobacco: Former Cigarettes Alcohol Use Standard Drinks/Week Comments No 0 (1 standard drink = 0.6 oz pur e alcohol) Comments Unknown Sex and Gender Information Value Date Recorded Sex Assigned at Not on file Legal Sex Female 5:07 PM EST Gender Identity Not on file Sexual Orientation Not on file documented as of this encounter Plan of Treatment Upcoming Encounters Date Type Department Care Team (Late st Contact Info) Description 12/16/2024 1:30 PM EDT Office Visit [facility] [address] [place] [address] Richy Hollis MD [address] [place] [address] [place] [address] documented as of this encounter Visit Diagnoses Not on filedocumented in this encounter Care Teams Production Maintenance Mechanic Relationship Specialty Start Date End Date Jodi Sun MD [address] [place] [address] [phone] PCP - General Business Administration Instructor 06/17/24 documented as of this encounter
--- OUTSIDE RECORDS SUMMARY | 2024-10-08 16:13 | XMS_ITS | Encounter Summary ---
Author Organization [facility] Address [address] [place] [address] Phone Care Team Providers Care District Ranger Name Role Phone Jodi Sun MD Primary Care Provider [phone] Encounter Details Date Type Department Care Team (Late Contact Info) Description 05/04/2024 Documentation Only [facility] [address] [place] [address] Sidra Forman [address] [place] [address] Social History Tobacco Use Types [...] Visit [facility] [address] [place] [address] Richy Hollis MD [address] [place] [address] [place] [address] documented as of this encounter Visit Diagnoses Not on filedocumented in this encounter Care Teams District Ranger Relationship Specialty Start Date End Date Jodi Sun MD [address] [place] [address] [phone] PCP - General Retort Pre Cooker 06/17/24 documented as of this encounter
--- OUTSIDE RECORDS SUMMARY | 2024-10-08 16:13 | XMS_ITS | Encounter Summary ---
Author Organization [facility] Address [address] [place] [address] Phone Care Team Providers Care Recovery Auditor Name Role Phone Jodi Sun MD Primary Care Provider [phone] Encounter Details Date Type Department Care Team (Late Contact Info) Description 09/01/2023 Documentation Only [facility] [address] [place] [address] Sidra Forman [address] [place] [address] Social History Tobacco Use Types [...] Visit [facility] [address] [place] [address] Richy Hollis MD [address] [place] [address] [place] [address] documented as of this encounter Visit Diagnoses Not on filedocumented in this encounter Care Teams Recovery Auditor Relationship Specialty Start Date End Date Jodi Sun MD [address] [place] [address] [phone] PCP - General Rehabilitation Counselor 06/17/24 documented as of this encounter
--- OUTSIDE RECORDS SUMMARY | 2024-10-08 16:13 | XMS_ITS | Encounter Summary ---
Author Organization [facility] Address [address] [place] [address] Phone Care Team Providers Care Photographer Helper Name Role Phone Jodi Sun MD Primary Care Provider [phone] Encounter Details Date Type Department Care Team (Late Contact Info) Description 06/15/2024 Documentation Only [facility] [address] [place] [address] Sidra Forman [address] [place] [address] Social History Tobacco Use Types [...] Visit [facility] [address] [place] [address] Richy Hollis MD [address] [place] [address] [place] [address] documented as of this encounter Visit Diagnoses Not on filedocumented in this encounter Care Teams Photographer Helper Relationship Specialty Start Date End Date Jodi Sun MD [address] [place] [address] [phone] PCP - General Seed Mill Superintendent 06/17/24 documented as of this encounter
--- OUTSIDE RECORDS SUMMARY | 2024-10-08 16:13 | XMS_ITS | Encounter Summary ---
Author Organization [facility] Address [address] [place] [address] Phone Care Team Providers Care Agricultural Commodities Inspector Name Role Phone Jodi Sun MD Primary Care Provider [phone] Encounter Details Date Type Department Care Team (Late Contact Info) Description 06/15/2024 Documentation Only [facility] [address] [place] [address] Sidra Forman [address] [place] [address] Social History Tobacco Use Types [...] Visit [facility] [address] [place] [address] Richy Hollis MD [address] [place] [address] [place] [address] documented as of this encounter Visit Diagnoses Not on filedocumented in this encounter Care Teams Agricultural Commodities Inspector Relationship Specialty Start Date End Date Jodi Sun MD [address] [place] [address] [phone] PCP - General Plant Quality Manager 06/17/24 documented as of this encounter
--- OUTSIDE RECORDS SUMMARY | 2024-10-08 16:13 | XMS_ITS | Encounter Summary ---
Author Organization [facility] Address [address] [place] [address] Phone Care Team Providers Care Stem Shaper Name Role Phone Jodi Sun MD Primary Care Provider [phone] Encounter Details Date Type Department Care Team (Late Contact Info) Description 06/15/2024 Documentation Only [facility] [address] [place] [address] Sidra Forman [address] [place] [address] Social History Tobacco Use Types [...] Visit [facility] [address] [place] [address] Richy Hollis MD [address] [place] [address] [place] [address] documented as of this encounter Visit Diagnoses Not on filedocumented in this encounter Care Teams Stem Shaper Relationship Specialty Start Date End Date Jodi Sun MD [address] [place] [address] [phone] PCP - General Fisher Hand Line 06/17/24 documented as of this encounter
--- OUTSIDE RECORDS SUMMARY | 2024-10-08 16:13 | XMS_ITS | Encounter Summary ---
Author Organization [facility] Address [address] [place] [address] Phone Care Team Providers Care Casting Machine Operator Name Role Phone Jodi Sun MD Primary Care Provider [phone] Encounter Details Date Type Department Care Team (Late Contact Info) Description 09/01/2023 Documentation Only [facility] [address] [place] [address] Sidra Forman [address] [place] [address] Social History Tobacco Use Types [...] Visit [facility] [address] [place] [address] Richy Hollis MD [address] [place] [address] [place] [address] documented as of this encounter Visit Diagnoses Not on filedocumented in this encounter Care Teams Casting Machine Operator Relationship Specialty Start Date End Date Jodi Sun MD [address] [place] [address] [phone] PCP - General Drilling Engineer 06/17/24 documented as of this encounter
--- OUTSIDE RECORDS SUMMARY | 2024-10-08 16:13 | XMS_ITS | Encounter Summary ---
Author Organization [facility] Address [address] [place] [address] Phone Care Team Providers Care Business Reporting Developer Name Role Phone Jodi Sun MD Primary Care Provider [phone] Encounter Details Date Type Department Care Team (Late Contact Info) Description 05/04/2024 Documentation Only [facility] [address] [place] [address] Sidra Forman [address] [place] [address] Social History Tobacco Use Types [...] Visit [facility] [address] [place] [address] Richy Hollis MD [address] [place] [address] [place] [address] documented as of this encounter Visit Diagnoses Not on filedocumented in this encounter Care Teams Business Reporting Developer Relationship Specialty Start Date End Date Jodi Sun MD [address] [place] [address] [phone] PCP - General Pattern Scratcher 06/17/24 documented as of this encounter
--- OUTSIDE RECORDS SUMMARY | 2024-10-08 16:13 | XMS_ITS | Encounter Summary ---
Author Organization [facility] Address [address] [place] [address] Phone Care Team Providers Care Workers Compensation Analyst Name Role Phone Jodi Sun MD Primary Care Provider [phone] Encounter Details Date Type Department Care Team (Late Contact Info) Description 01/05/2024 Documentation Only [facility] [address] [place] [address] Sidra Forman [address] [place] [address] Social History Tobacco Use Types [...] Visit [facility] [address] [place] [address] Richy Hollis MD [address] [place] [address] [place] [address] documented as of this encounter Visit Diagnoses Not on filedocumented in this encounter Care Teams Workers Compensation Analyst Relationship Specialty Start Date End Date Jodi Sun MD [address] [place] [address] [phone] PCP - General Medical Office Secretary 06/17/24 documented as of this encounter
--- OUTSIDE RECORDS SUMMARY | 2024-10-08 16:13 | XMS_ITS | Encounter Summary ---
Author Organization [facility] Address [address] [place] [address] Phone Care Team Providers Care Liquor Rectifier Name Role Phone Jodi Sun MD Primary Care Provider [phone] Encounter Details Date Type Department Care Team (Late Contact Info) Description 06/15/2024 Documentation Only [facility] [address] [place] [address] Sidra Forman [address] [place] [address] Social History Tobacco Use Types [...] Visit [facility] [address] [place] [address] Richy Hollis MD [address] [place] [address] [place] [address] documented as of this encounter Visit Diagnoses Not on filedocumented in this encounter Care Teams Liquor Rectifier Relationship Specialty Start Date End Date Jodi Sun MD [address] [place] [address] [phone] PCP - General Unit Assistant 06/17/24 documented as of this encounter
--- OUTSIDE RECORDS SUMMARY | 2024-10-08 16:13 | XMS_ITS | Encounter Summary ---
Author Organization [facility] Address [address] [place] [address] Phone Care Team Providers Care Testing Lead Name Role Phone Jodi Sun MD Primary Care Provider [phone] Encounter Details Date Type Department Care Team (Late Contact Info) Description 06/15/2024 Documentation Only [facility] [address] [place] [address] Sidra Formna [address] [place] [address] Social History Tobacco Use Types [...] Visit [facility] [address] [place] [address] Richy Hollis MD [address] [place] [address] [place] [address] documented as of this encounter Visit Diagnoses Not on filedocumented in this encounter Care Teams Testing Lead Relationship Specialty Start Date End Date Jodi Sun MD [address] [place] [address] [phone] PCP - General Automatic Pad Making Machine Operator 06/17/24 documented as of this encounter
--- OUTSIDE RECORDS SUMMARY | 2024-10-08 16:13 | XMS_ITS | Encounter Summary ---
Author Organization [facility] Address [address] [place] [address] Phone Care Team Providers Care Automatic Serging Machine Operator Name Role Phone Jodi Sun MD Primary Care Provider [phone] Encounter Details Date Type Department Care Team (Late Contact Info) Description 01/05/2024 Documentation Only [facility] [address] [place] [address] Sidra Foramn [address] [place] [address] Social History Tobacco Use Types [...] Visit [facility] [address] [place] [address] Richy Hollis MD [address] [place] [address] [place] [address] documented as of this encounter Visit Diagnoses Not on filedocumented in this encounter Care Teams Automatic Serging Machine Operator Relationship Specialty Start Date End Date Jodi Sun MD [address] [place] [address] [phone] PCP - General Shallot Cleaner 06/17/24 documented as of this encounter
--- OUTSIDE RECORDS SUMMARY | 2024-10-08 16:13 | XMS_ITS | Encounter Summary ---
Author Organization [facility] Address [address] [place] [address] Phone Care Team Providers Care Teleservices Representative Name Role Phone Jodi Sun MD Primary Care Provider [phone] Encounter Details Date Type Department Care Team (Late Contact Info) Description 06/15/2024 Documentation Only [facility] [address] [place] [address] Sidra Forman [address] [place] [address] Social History Tobacco Use Types [...] [facility] [address] [place] [address] Richy Hollis MD [address] [place] [address] [place] [address] documented as of this encounter Visit Diagnoses Not on filedocumented in this encounter Care Teams Teleservices Representative Relationship Specialty Start Date End Date Jodi Sun MD [address] [place] [address] [phone] PCP - General Microstrategy Developer 06/17/24 documented as of this encounter
--- OUTSIDE RECORDS SUMMARY | 2024-10-08 16:13 | XMS_ITS | Encounter Summary ---
Author Organization [facility] Address [address] [place] [address] Phone Care Team Providers Care Chief Psychologist Name Role Phone Jodi Sun MD Primary Care Provider [phone] Encounter Details Date Type Department Care Team (Late Contact Info) Description 01/02/2024 Documentation Only [facility] [address] [place] [address] Sidra Forman [address] [place] [address] Social History Tobacco Use Types [...] Visit [facility] [address] [place] [address] Richy Hollis MD [address] [place] [address] [place] [address] documented as of this encounter Visit Diagnoses Not on filedocumented in this encounter Care Teams Chief Psychologist Relationship Specialty Start Date End Date Jodi Sun MD [address] [place] [address] [phone] PCP - General Prison Librarian 06/17/24 documented as of this encounter
[2024-10-08 16:18] LABS: MANUAL DIFF FLAG NO
[2024-10-08 16:21] LABS: Basophils Percent Auto 0.7 % (0-2); Eosinophils Absolute Auto 0.1 X10*3/uL (0.0-0.4); Eosinophils Percent Auto 1.4 % (0-4); Hematocrit 27.7 % (37.0-47.0); Hemoglobin 9.1 g/dl (12.0-16.0); Imm Gran Abs Auto 0.04 X10*3/uL (0.00-0.03); Imm Gran Pct Auto 0.9 % (0.0-0.4); Lymphocytes Absolute Auto 1.2 X10*3/uL (1.2-4.9); Lymphocytes Percent Auto 26.6 % (20-40); Mean Corpuscular HGB Conc 32.9 g/dl (31.0-35.0); Mean Corpuscular Hemoglobin 32.9 pg (27.0-33.0); Mean Platelet Volume 10.5 fL (9.4-12.3); Monocytes Absolute Auto 0.5 X10*3/uL (0.1-1.2); Monocytes Percent Auto 10.6 % (2-11); NRBC Pct Auto 0.7 /100WBC (0.0-0.2); Neutrophils Absolute Auto 2.7 x10*3/uL (2.0-8.3); Neutrophils Percent Auto 59.8 % (45-73); Platelet Count 154 X10*3/uL (160-400); Red Blood Count 2.77 X10*6/uL (4.20-5.50); Red Cell Distribution Width 13.7 % (11.0-16.0); White Blood Count 4.4 X10*3/uL (4.8-10.8)
[2024-10-08 16:34] LABS: Lactic Acid 0.6 mmol/L (0.5-2.0)
[2024-10-08 16:37] LABS: Alanine Aminotransferase < 6 U/L (0-31); Albumin Level 3.1 g/dL (3.5-5.0); Alkaline Phosphatase 97 U/L (39-117); Anion Gap 17 (12-20); Aspartate Amino Transferase 25 U/L (5-31); Bilirubin Direct 0.2 mg/dL (0.0-0.5); Bilirubin Total 0.5 mg/dL (0.0-1.0); Blood Urea Nitrogen 83 mg/dL (9-16); Calcium 6.6 mg/dL (8.4-10.2); Carbon Dioxide 10 mmol/L (22-29); Chloride 116 mmol/L (96-108); Creatinine Clr Calc Pharmacy 8.9; Estimated Glomerular Filt Rate 14; Glucose Random 89 mg/dL (60-115); Magnesium 0.7 mg/dL (1.6-2.6); Potassium 5.4 mmol/L (3.3-5.1); Sodium 138 mmol/L (135-145); Total Protein 5.7 g/dL (6.5-8.0)
[2024-10-08 16:38] LABS: B Type Natriuretic Peptide 721 pg/mL (<100)
[2024-10-08] MEDS: Piperacillin Sodium/Tazobactam 3.375 GM in 0.9 % Sodium Chloride 50 ML IV (16:52)
[2024-10-08 17:05] LABS: Influenza A PCR NEGATIVE (Negative); Influenza B PCR NEGATIVE (Negative); Resp Syncy Virus RNA Qual PCR NEGATIVE (Negative); SARS COV2 PCR INHOUSE NEGATIVE (Negative)
[2024-10-08] MEDS: Magnesium Sulfate/H2O 2 GM/50 ML PIGGYBACK IV ×2 (17:12→23:51)
[2024-10-08] MEDS: Lactated Ringers 1,000 ML 999 ML IV ×2 (17:13→20:45)
[2024-10-08] MEDS: ondansetron HCL 4 MG/2 ML VIAL IVPUSH (17:42)
--- NOTE | 2024-10-08 18:59 | PM.CNGS ---
History of Present Illness Consult details Consult date: 10/08/24 Narrative: 79F with multiple medical problems including DM, CKD, who is a resident of the [facility], here in the ED for poor appetite for 3 weeks. She was reported to have lightheadedness and hypotension. She denies any abdominal pain. She says she has had multiple hernia repairs in the past. She says she knows she has this small hernia in the upper abdomen for years but says this does not bother her. She denies GI complaints. 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 Review of Systems Constitutional: Constitutional: Denies chills, Denies fever(s) and Reports poor appetite Cardiovascular: Cardiovascular: Denies chest pain Respiratory: Respiratory: Denies cough Gastrointestinal: Gastrointestinal: Denies abdominal pain, Denies nausea and Denies vomiting PMFSH Past Medical History Medical History CKD (chronic kidney disease) stage 3, GFR 30-59 ml/min Osteosarcoma Diabetes COPD (chronic obstructive pulmonary disease) HTN (hypertension) Surgical History Surgical History History of partial hysterectomy History of cholecystectomy History of tubal ligation H/O excision of ganglion cyst History of umbilical hernia repair History of repair of inguinal hernia Social History Social History Household Members: None Housing: Assisted Living Facility Are you a primary congregational care pastor to a significant other at home: No Do you presently have visiting nurse or other home services: No Alcohol intake: never Patient Tobacco Use Status: Former Tobacco user service: No Current occupational status: disabled Current occupation: left handed Meds Allergies Allergy/AdvReac Type Severity Reaction Status Date / Time Sulfa (Sulfonamide Allergy Mild N/V Verified 10/12/24 12:36 Antibiotics) Sulfamethoxazole Allergy Unknown vomiting Uncoded 10/12/24 12:36 Active Medications: Current Medications Lactated Ringer's (Lr) 500 mls @ 999 mls/hr IV .[id number] ANDIE Stop: 10/08/24 19:00 Home Medications ?Medication ?Instructions ?Recorded ?Confirmed ?Last Taken ?Type carvedilol 25 mg tablet 25 mg PO BID 06/22/20 10/08/2410/08/25 History cholecalciferol (vitamin D3) 50 50 mcg PO DAILY 06/22/20 10/08/24 10/08/24 History mcg (2,000 unit) capsule gabapentin 300 mg capsule 300 mg PO TID 03/31/24 10/08/24 10/08/24 History isosorbide mononitrate 30 mg 90 mg PO DAILY 03/31/24 10/08/24 10/08/24 History tablet,extended release 24 hr omeprazole 40 mg capsule,delayed 40 mg PO DAILY@0630 03/31/24 10/08/24 10/08/24 History release torsemide 20 mg tablet 40 mg PO DAILY 03/31/24 10/08/24 10/08/24 History albuterol sulfate 90 mcg/actuation 2 puff inhalation Q6H PRN 10/08/24 10/08/24 Unknown History aerosol inhaler Shortness Of Breath Or Wheezing amlodipine 10 mg tablet 10 mg PO DAILY 10/08/24 10/08/24 10/08/24 History atorvastatin 40 mg tablet 40 mg PO DAILY 10/08/24 10/08/24 10/08/24 History budesonide 160 mcg-glycopyr 9 2 inh inhalation BID 10/08/24 10/08/24 10/08/24 History mcg-formot 4.8 mcg/actuation HFA inhaler (Breztri Aerosphere) buprenorphine 20 mcg/hour weekly 1 patch topical FR 10/08/24 10/08/24 10/01/24 History transdermal patch (Butrans) empagliflozin 10 mg tablet 10 mg PO DAILY 10/08/24 10/08/24 10/08/24 History (Jardiance) hydroxyzine pamoate 25 mg capsule 25 mg PO QID 10/08/24 10/08/24 10/08/24 History lisinopril 10 mg tablet 10 mg PO BID 10/08/24 10/08/24 Unknown History Physical Exam Vital Signs: Vital Signs: Last Vital Signs Temp 97.7 F 10/08/24 16:47 Pulse 65 10/08/24 18:37 Resp 11 L 10/08/24 16:59 BP 93/46 L 10/08/24 18:37 Pulse Ox 96 10/08/24 16:47 O2 Del Method Room Air 10/08/24 16:47 BMI result Body Mass Index 24.1 Const: General: comfortable and no acute distress Orientation/consciousness: patient oriented x3 Neck: Neck: Yes no lymphadenopathy Resp: Auscultation: clear to auscultation bilaterally Cardio: Rhythm: regular rhythm GI: Other: vague small hernia on upper abdomen at midline, not tender Palpation (GI): Soft to palpation, nontender and no guarding Neuro: General: patient oriented x3 Results Labs 10/12/24 06:45 10/12/24 06:45 Labs: Abnormal lab results 10/08/24 Range/Units 16:12 WBC 4.4 L (4.8-10.8) X10*3/uL RBC 2.77 L (4.20-5.50) X10*6/uL Hgb 9.1 L (12.0-16.0) g/dl Hct 27.7 L (37.0-47.0) % MCV 100.0 H (80.0-98.0) fL Plt Count 154 L (160-400) X10*3/uL Immature Gran % (Auto) 0.9 H (0.0-0.4) % Abs Immat Gran (auto) 0.04 H (0.00-0.03) X10*3/uL Absolute Nucleated RBC 0.030 H (0.0-0.012) X10*3/uL Nucleated RBC % (auto) 0.7 H (0.0-0.2) /100WBC Potassium 5.4 H (3.3-5.1) mmol/L Chloride 116 H (96-108) mmol/L Carbon Dioxide 10 L* (22-29) mmol/L BUN 83 H (9-16) mg/dL Creatinine 3.25 H (0.5-1.4) mg/dL Calcium 6.6 L (8.4-10.2) mg/dL Magnesium 0.7 L* (1.6-2.6) mg/dL B-Natriuretic Peptide 721 H (<100) pg/mL Total Protein 5.7 L (6.5-8.0) g/dL Albumin 3.1 L (3.5-5.0) g/dL Short CBC 10/08/24 Range/Units 16:12 WBC 4.4 L (4.8-10.8) X10*3/uL Hgb 9.1 L (12.0-16.0) g/dl Hct 27.7 L (37.0-47.0) % Plt Count 154 L (160-400) X10*3/uL BMP 10/08/24 16:12 Sodium 138 Potassium 5.4 H Chloride 116 H Carbon Dioxide 10 L* BUN 83 H Creatinine 3.25 H Calcium 6.6 L Liver Function 10/08/24 Range/Units 16:12 Total Bilirubin 0.5 (0.0-1.0) mg/dL Direct Bilirubin 0.2 (0.0-0.5) mg/dL AST 25 (5-31) U/L ALT < 6 (0-31) U/L Alkaline Phosphatase 97 (39-117) U/L Albumin 3.1 L (3.5-5.0) g/dL All other labs normal. Imaging Abdomen CT scan report/results: report reviewed and image reviewed CT scan - pelvis: report reviewed and image reviewed Additional studies: IMPRESSION: 1. Limited evaluation of the kidneys without intravenous contrast but on noncontrast study no renal abnormality identified. 2. Very small fat containing right paramidline ventral hernia with minimal stranding in the fat which may represent early strangulation. Correlate clinically. 3. Distal esophageal wall thickening may represent esophagitis, small hiatal hernia and apparent diffuse gastric wall thickening which could be from decompression but gastritis not excluded. 4. Additional nonacute findings as described. Assessment and Plan (1) Ventral hernia: Status: Acute She is here in the ED for poor appetite, lightheadedness and reported hyoptension. She looks weel currently and says she is comfortable I was consulted because of a CT finding showing a small fat-containing ventral hernia on the upper abdomen. There is some mild fat stranding in the hernia. The defect is about 1.5 cm. There is no bowel involvement. She does not have any manpreet or tenderness on the area. She tehrefore does not require any surgical intervention. She says she is aware of this hernia and has had this for many years. Her bicarb level is very low at 10 but this is likley due to her chronic kidney disease wtih MALLORY. She is not septic looking. Procedures Date of Service Date of Service: 10/12/24
[2024-10-08] MEDS: Lactated Ringers 500 ML 999 ML IV (19:34)
[2024-10-08 19:56] LABS: Troponin-I High Sensitivity 7.2 ng/L (<3.5-17.0)
[2024-10-08 20:24] LABS: Venous Blood Gas Refer to POC result
[2024-10-08 20:25] LABS: VBG Base Excess -17.1 mmol/L; VBG HCO3 10 mmol/L (22-26); VBG pCO2 30 mmHg; VBG pH 7.13 (7.32-7.43); VBG pO2 51 mmHg
--- NOTE | 2024-10-08 20:38 | PHA.MEDREC ---
Addendum entered by J Carlos Francis RPh 10/08/24 20:43: Reviewed by [facility]. Original Note: Pharmacy Consult ? Medication Reconciliation Pharmacy has completed the medication reconciliation. Spoke to patient to confirm med list. Patient confirmed all her medications. Utilized claims and list from 's office to confirm med list.
[2024-10-08] MEDS: Albumin Human 25 % 100 ML 133.33 ML IV ×2 (21:06→21:51)
[2024-10-08 22:42] LABS: Venous Blood Gas Refer to POC result
[2024-10-08 22:43] LABS: VBG Base Excess -14.9 mmol/L; VBG HCO3 10 mmol/L (22-26); VBG pCO2 24 mmHg; VBG pH 7.24 (7.32-7.43); VBG pO2 79 mmHg
[2024-10-08 22:58] LABS: Anion Gap 18 (12-20); Blood Urea Nitrogen 71 mg/dL (9-16); Calcium 6.9 mg/dL (8.4-10.2); Carbon Dioxide 10 mmol/L (22-29); Chloride 116 mmol/L (96-108); Creatinine Clr Calc Pharmacy 10.4; Estimated Glomerular Filt Rate 16; Glucose Random 102 mg/dL (60-115); Potassium 5.9 mmol/L (3.3-5.1); Sodium 138 mmol/L (135-145)
[2024-10-08 23:19] LABS: Magnesium 1.4 mg/dL (1.6-2.6)
[2024-10-08] MEDS: Albuterol Sulfate 7.5 MG, Albuterol Sulfate (0.083%) 2.5 MG 10 MG INHALE (23:43)
[2024-10-08] MEDS: Calcium Gluconate/NaCl,Iso-Osm 2 GM/100 ML PLAST..BAG IV (23:51)
[2024-10-08] MEDS: Sodium Zirconium Cyclosilicate 10 GM POWD.PACK PO (23:51)
[2024-10-08] MEDS: hydrOXYzine HCL 25 MG TABLET PO (23:51)
[2024-10-08] MEDS: Acetaminophen 325 MG TABLET 975 MG PO (23:51)
[2024-10-08] MEDS: Gabapentin 300 MG CAPSULE PO (23:51)
[2024-10-09] VITALS (10 sets, daily range): BP systolic 87–105; BP diastolic 44–72; PULSE 80–85; RESP 12–20; TEMP 36.3–37.1; O2SAT 90–96; BMI 28.2
--- NOTE | 2024-10-09 00:05 | PC.NURSE ---
Hospitalist req urina sample. Pt states unable to void. Straight cath done with 200cc of clear yellow urine output. Urine sent to the lab. Pt tolerated well.
--- NOTE | 2024-10-09 00:26 | PM.IMHP ---
History of Present Illness Date of Service: 10/08/24 Attending physician on admission: Rj Chapin Chief Complaint: weakness, hypotension Patient is a 79-year-old female with a past medical history significant for type 2 diabetes, COPD unspecified, HTN, CKD3b, GERD, gout, HLD, peripheral edema, s/p BKA secondary to bone cancer at 20 years old, who presented to the ED due to lightheadedness, generalized fatigue and weakness with decreased appetite for about 3 weeks. The patient reports that she does not have any nausea or vomiting but just has no desire to eat. She also reports very infrequent and small volume urination for the past week. She denies any dysuria or urgency. She has no history of UTIs. She also reports a bed sore on her buttocks which she states she has had about a week. She also has chronic shoulder and neck pain. Review of Systems Constitutional: Constitutional: Denies body ache(s), Denies chills, Reports fatigue, Denies fever(s) and Denies headache(s) Eyes: Eyes: Denies change in vision and Denies photophobia ENT: Denies headache(s), Denies nasal congestion, Denies nasal discharge and Denies sore throat Cardiovascular: Cardiovascular: Denies chest pain, Denies rapid heart rate, Denies leg edema, Denies lightheadedness and Denies dyspnea Respiratory: Respiratory: Denies chest congestion, Denies cough, Denies dyspnea and Denies wheezing Gastrointestinal: Gastrointestinal: Denies melena, Denies diarrhea, Denies nausea and Denies vomiting Genitourinary: Genitourinary: Reports urinary frequency, Reports difficulty voiding, Denies dysuria and Denies urinary urgency Musculoskeletal: Musculoskeletal: Denies myalgias Integumentary/Breasts: Comments: bed sore on buttocks Neurologic: Denies confusion and Denies headache(s) Psychiatric: Psychiatric: Denies confusion Endocrine: Endocrine: Reports fatigue Hematologic/Lymphatic: Hematologic/Lymphatic: Denies easy bleeding and Denies easy bruising Allergic/Immunologic: Allergic/Immunologic: Denies wheezing REPLACED BY [facility] Medical History (Updated 10/09/24 @ 02:13 by ROBYN Mercado) CKD (chronic kidney disease) stage 3, GFR 30-59 ml/min Osteosarcoma Diabetes COPD (chronic obstructive pulmonary disease) HTN (hypertension) Surgical History History of partial hysterectomy History of cholecystectomy History of tubal ligation H/O excision of ganglion cyst History of umbilical hernia repair History of repair of inguinal hernia Social History Alcohol intake: never Patient Tobacco Use Status: Never used Tobacco Smoked in Last 30 Days: No Use of substances other than those prescribed or required for medical reasons: No Advance Directives: No Advance Directives Information Provided: Yes Do you have a plan to hurt others: No Plan Nutrition Risks: No Nutritional Risk Current occupational status: disabled Current occupation: left handed Narrative: no smoking, etoh or drug use Meds Allergies Allergy/AdvReac Type Severity Reaction Status Date / Time Sulfa (Sulfonamide Allergy Mild N/V Verified 10/08/24 15:13 Antibiotics) Sulfamethoxazole Allergy Unknown vomiting Uncoded 10/08/24 15:13 Active Medications: Current Medications Magnesium Sulfate (Magnesium Sulfate/H2o) 2 gm in 50 mls @ 25 mls/hr IV ONCE ONE Stop: 10/09/24 01:20 Last Infusion: 10/09/24 00:18 Dose: Infused Calcium Gluconate (Calcium Gluconate) 2 gm in 100 mls @ 50 mls/hr IV ONCE ONE Stop: 10/09/24 01:21 Last Infusion: 10/09/24 00:18 Dose: Infused Sodium Bicarbonate 150 meq/ (Dextrose) 1,000 mls @ 75 mls/hr IV .[id number] ANDIE Home Medications ?Medication ?Instructions ?Recorded ?Confirmed ?Last Taken ?Type carvedilol 25 mg tablet 25 mg PO BID 06/22/20 10/08/24 10/08/24 History cholecalciferol (vitamin D3) 50 50 mcg PO DAILY 06/22/20 10/08/24 10/08/24 History mcg (2,000 unit) capsule gabapentin 300 mg capsule 300 mg PO TID 03/31/24 10/08/24 10/08/24 History isosorbide mononitrate 30 mg 90 mg PO DAILY 03/31/24 10/08/24 10/08/24 History tablet,extended release 24 hr omeprazole 40 mg capsule,delayed 40 mg PO DAILY@0630 03/31/24 10/08/24 10/08/24 History release torsemide 20 mg tablet 40 mg PO DAILY 03/31/24 10/08/24 10/08/24 History albuterol sulfate 90 mcg/actuation 2 puff inhalation Q6H PRN 10/08/24 10/08/24 Unknown History aerosol inhaler Shortness Of Breath Or Wheezing amlodipine 10 mg tablet 10 mg PO DAILY 10/08/24 10/08/24 10/08/24 History atorvastatin 40 mg tablet 40 mg PO DAILY 10/08/24 10/08/24 10/08/24 History budesonide 160 mcg-glycopyr 9 2 inh inhalation BID 10/08/24 10/08/24 10/08/24 History mcg-formot 4.8 mcg/actuation HFA inhaler (Breztri Aerosphere) buprenorphine 20 mcg/hour weekly 1 patch topical FR 10/08/24 10/08/24 10/01/24 History transdermal patch (Butrans) empagliflozin 10 mg tablet 10 mg PO DAILY 10/08/24 10/08/24 10/08/24 History (Jardiance) hydroxyzine pamoate 25 mg capsule 25 mg PO QID 10/08/24 10/08/24 10/08/24 History lisinopril 10 mg tablet 10 mg PO BID 10/08/24 10/08/24 Unknown History Physical Exam Vital Signs and Narrative: Vital Signs: Last Vital Signs Temp 97.7 F 10/08/24 16:47 Pulse 71 10/08/24 23:44 Resp 16 10/08/24 23:44 BP 98/53 L 10/08/24 22:39 Pulse Ox 94 10/08/24 20:49 O2 Del Method Room Air 10/08/24 20:49 BMI result Body Mass Index 24.1 General: AOx3, no acute distress Resp: CTA bilaterally CVS: S1, S2, RRR GI: +BS, NT, no distention Skin: Warm, dry Neuro: Cranial nerves II-XII grossly intact bilaterally. Motor grossly intact bilaterally Extremities: No LE edema, s/p BKA Psych: Appropriate affect Const: General: No confusion Orientation/consciousness: No confusion Eyes: Direct Ophthalmoscopy: No photophobia Neuro: General: No confusion Results Labs 10/08/24 16:12 10/08/24 22:34 Labs: Laboratory Results - last 24 hr 10/08/24 10/08/24 10/08/24 16:12 20:12 22:34 MCV 100.0 H MCH 32.9 MCHC 32.9 RDW 13.7 Plt Count 154 L MPV 10.5 Immature Gran % (Auto) 0.9 H Neut % (Auto) 59.8 Lymph % (Auto) 26.6 [place] % (Auto) 10.6 Eos % (Auto) 1.4 Baso % (Auto) 0.7 Lymph # (Auto) 1.2 [place] # (Auto) 0.5 Eos # (Auto) 0.1 Baso # (Auto) 0.0 Abs Immat Gran (auto) 0.04 H Absolute Neuts (auto) 2.7 Absolute Nucleated RBC 0.030 H Nucleated RBC % (auto) 0.7 H VBG pH 7.13 L* VBG pCO2 30 VBG pO2 51 VBG HCO3 10 L VBG O2 Saturation 74.0 VBG Base Excess -17.1 Anion Gap 17 18 Estim Creat Clear Calc 8.9 10.4 Estimated GFR 14 16 Random Glucose 89 102 Lactic Acid 0.6 Calcium 6.6 L 6.9 L Magnesium 0.7 L* 1.4 L* Total Bilirubin 0.5 Direct Bilirubin 0.2 AST 25 ALT < 6 Alkaline Phosphatase 97 B-Natriuretic Peptide 721 H Total Protein 5.7 L Albumin 3.1 L Influenza Type A (PCR) NEGATIVE Influenza Type B (PCR) NEGATIVE RSV RNA Qual (PCR) NEGATIVE SARS-CoV-2 RNA (RT-PCR) NEGATIVE 10/08/24 22:39 MCV MCH MCHC RDW Plt Count MPV Immature Gran % (Auto) Neut % (Auto) Lymph % (Auto) [place] % (Auto) Eos % (Auto) Baso % (Auto) Lymph # (Auto) [place] # (Auto) Eos # (Auto) Baso # (Auto) Abs Immat Gran (auto) Absolute Neuts (auto) Absolute Nucleated RBC Nucleated RBC % (auto) VBG pH 7.24 L VBG pCO2 24 VBG pO2 79 VBG HCO3 10 L VBG O2 Saturation 97.0 VBG Base Excess -14.9 Anion Gap Estim Creat Clear Calc Estimated GFR Random Glucose Lactic Acid Calcium Magnesium Total Bilirubin Direct Bilirubin AST ALT Alkaline Phosphatase B-Natriuretic Peptide Total Protein Albumin Influenza Type A (PCR) Influenza Type B (PCR) RSV RNA Qual (PCR) SARS-CoV-2 RNA (RT-PCR) Assessment and Plan (1) Hypotension: Status: Acute (2) Weakness: Status: Acute (3) Acute kidney injury superimposed on CKD: Status: Acute (4) Hyperkalemia: Status: Acute (5) Hypocalcemia: Status: Acute (6) Hypomagnesemia: Status: Acute (7) Pancytopenia: Status: Acute (8) Ventral hernia: Status: Acute (9) Metabolic acidosis: Status: Acute Plan Patient is a 79-year-old female with a past medical history significant for type 2 diabetes, COPD unspecified, HTN, CKD3b, GERD, gout, HLD, peripheral edema, s/p BKA secondary to bone cancer at 20 years old, who presented to the ED due to lightheadedness, generalized fatigue and weakness with decreased appetite for about 3 weeks. hypotension, weakness due to poor PO intake - WBC 4.4, lactic acid normal, hypotension due to poor PO intake, not sepsis - A/P CT with very small fat containing right paramidline ventral hernia with minimal stranding in the fat which may represent early strangulation. Distal esophageal wall thickening may represent esophagitis, small hiatal hernia and apparent diffuse gastric wall thickening which could be from decompression by gastritis not excluded. - CT reviewed by Dr. Avendaño who does not feel the hernia strangulated - chest x-ray negative - BNP elevated due to CKD - UA negative - given 4 L IV fluids by EMS and ED +2 amps of albumin - pressure is maintaining systolic in the 90s - UA not yet done but sx consistent with possible UTI, was started on zosyn and cefriaxone in ED. hold on further abx due to no fever, leukocytosis or source of infection at this time - monitor CBC and BMP MALLORY on CKD with metabolic acidosis - baseline cr 2.0, currently 3.2 - IVF as above - nephrology consult - hold lisinopril, Lasix, Jardiance and Prilosec per nephrology Hyperkalemia, hypomagnesemia, hypocalcemia - K 5.4, 5.9 on repeat with slight hemolysis - Mag 0.7, given 2 g at IV Mag and 1.4 on repeat, given another 2 g IV - sand conditioner machine suggested 2 g calcium the dose, Lokelma, bicarb drip, albuterol and repeat low, in 4 hours - monitor BMP macrocytic anemia - hgb 9.1, likely anemia of chronic disease - check iron studies, B12 and folate - follow CBC pancytopenia - monitor CBC pressure ulcer - buttocks ulcer reported by pt but did not want bandage that was just placed by nursing removed - wound care consult T2DM - sliding scale insulin - diabetic diet COPD unspecifield - continue home meds HTN - hold home meds, resume when appropriate GERD - hold PPI gout - hold allopurinol DNR/DNI VTE prophy: heparin Pt with hypotension and weakness due to poor PO intake, complicated by MALLORY on CKD metabolic acidosis, hypokalemia, hypocalcemia and hypomagnesemia, requiring admission for at least 2 midnights stay for further evaluation, IV fluids, electrolyte repletion, and nephrology consultation Quality Stroke Does the patient have a stroke diagnosis?: No VTE Prior VTE?: No VTE Risk Level:: Medical - moderate - high VTE Device Contraindication: Treatment Not Indicated VTE Drug Contraindication: N/A - Med Ordered
[2024-10-09 00:28] LABS: Appearance Urine Clear; Color Urine Yellow; Glucose Urine UA Negative (Negative); Leukocyte Esterase Urine Negative (Negative); Nitrite Urine Negative (Negative); Specific Gravity - Urine 1.015 (1.005-1.025); Urine Blood Negative (Negative); Urine Ketones Trace mg/dL (Negative); Urine Protein Trace mg/dL (Neg-Trace)
[2024-10-09] MEDS: Sodium Bicarbonate 8.4% 150 MEQ in Dextrose 5 % 850 ML 75 MEQ IV ×2 (00:31→13:47)
[2024-10-09] MEDS: Heparin Sodium,Porcine 5,000 UNIT/ML VIAL 5000 UNIT SUBCUT ×3 (01:25→20:10)
[2024-10-09] MEDS: ondansetron HCL 4 MG/2 ML VIAL IVPUSH (01:25)
[2024-10-09] MEDS: Sodium Zirconium Cyclosilicate 10 GM POWD.PACK PO (04:06)
--- NOTE | 2024-10-09 05:30 | PC.NURSE ---
Pt found to be hypotensive at 87/44 with map of 58. Pt reports feeling dizzy and nauseous if positioned in [place]. [place] text sent to Dr. Chapin. New order for albumin to be placed in AUG.
[2024-10-09] MEDS: Albumin Human 25 % 100 ML 133.33 ML IV ×2 (06:01→08:12)
[2024-10-09 06:08] LABS: MANUAL DIFF FLAG NO
[2024-10-09 06:10] LABS: Basophils Percent Auto 0.6 % (0-2); Eosinophils Percent Auto 0.9 % (0-4); Hematocrit 22.8 % (37.0-47.0); Hemoglobin 7.6 g/dl (12.0-16.0); Imm Gran Abs Auto 0.01 X10*3/uL (0.00-0.03); Imm Gran Pct Auto 0.3 % (0.0-0.4); Lymphocytes Absolute Auto 0.6 X10*3/uL (1.2-4.9); Lymphocytes Percent Auto 18.4 % (20-40); Mean Corpuscular HGB Conc 33.3 g/dl (31.0-35.0); Mean Corpuscular Hemoglobin 33.2 pg (27.0-33.0); Mean Corpuscular Volume 99.6 fL (80.0-98.0); Mean Platelet Volume 10.5 fL (9.4-12.3); Monocytes Absolute Auto 0.3 X10*3/uL (0.1-1.2); Monocytes Percent Auto 8.1 % (2-11); Neutrophils Absolute Auto 2.3 x10*3/uL (2.0-8.3); Neutrophils Percent Auto 71.7 % (45-73); Platelet Count 132 X10*3/uL (160-400); Red Blood Count 2.29 X10*6/uL (4.20-5.50); Red Cell Distribution Width 13.8 % (11.0-16.0); White Blood Count 3.2 X10*3/uL (4.8-10.8)
[2024-10-09 06:27] LABS: Lactic Acid 0.4 mmol/L (0.5-2.0)
[2024-10-09 06:32] LABS: Anion Gap 19 (12-20); Blood Urea Nitrogen 71 mg/dL (9-16); Calcium 7.6 mg/dL (8.4-10.2); Carbon Dioxide 12 mmol/L (22-29); Chloride 113 mmol/L (96-108); Creatinine Clr Calc Pharmacy 10.7; Estimated Glomerular Filt Rate 17; Glucose Random 142 mg/dL (60-115); Iron 64 mcg/dL (30-160); Magnesium 2.1 mg/dL (1.6-2.6); Percent Iron Saturation 62 % (15-50); Potassium 4.6 mmol/L (3.3-5.1); Sodium 139 mmol/L (135-145); Total Iron Binding Capacity 103 mcg/dL (228-428); Unsaturated Iron Binding 39 ug/dL
[2024-10-09 07:03] LABS: Folate 5.2 ng/mL (> or = 4.0); Vitamin B12 330 pg/mL (200-900)
[2024-10-09 07:14] LABS: Glucose, Whole Blood 123 mg/dL (60-115)
--- NOTE | 2024-10-09 07:35 | PC.NURSE ---
bladder scan showing approx 200mL of urine, patient does not feel pain or the need to void at this time. per previous shift, patient did not void after the straight cath
[2024-10-09 08:14] LABS: Potassium Urine Random 26.1 mmol/L
[2024-10-09] MEDS: Folic Acid 1 MG TABLET PO (09:06)
[2024-10-09] MEDS: Atorvastatin Calcium 40 MG TABLET PO (09:06)
[2024-10-09] MEDS: Cyanocobalamin (Vitamin B-12) 1,000 MCG/ML VIAL 1000 MCG IM (09:07)
[2024-10-09] MEDS: Gabapentin 300 MG CAPSULE PO ×3 (09:07→20:09)
[2024-10-09] MEDS: Acetaminophen 325 MG TABLET 975 MG PO ×2 (09:13→20:09)
--- NOTE | 2024-10-09 10:50 | P.PNIM_ITS ---
Subjective Subjective Date of Service: 10/09/24 Interval History: no appetite Physical Exam 2 Vital Signs: Vital Signs: Last Vital Signs Temp 97.4 F 10/09/24 10:13 Pulse 80 10/09/24 10:13 Resp 17 10/09/24 10:13 BP 101/72 10/09/24 10:13 Pulse Ox 92 10/09/24 10:13 O2 Del Method Room Air 10/09/24 10:13 BMI result Body Mass Index 28.2 General: AO X 3, no acute distress, frail appearing Resp: CTA bilateral, no accessory muscles used CVS: S1,S2,RRR GI: soft, non tender, non distended Neuro: motor grossly intact, alert Psych: appropriate affect, appropriate insight Objective Data Active Medications Acetaminophen (Acetaminophen 325 Mg Tablet) 975 mg PO Q6H PRN PRN Reason: Pain, Mild 1-3,fever,headache Last Admin: 10/09/24 09:13 Dose: 975 mg Documented By: GUERRERO Atorvastatin Calcium (Atorvastatin Calcium 40 Mg Tablet) 40 mg PO DAILY [facility] Last Admin: 10/09/24 09:06 Dose: 40 mg Documented By: GUERRERO Calcium Carbonate (Calcium Carbonate 750 Mg Tab.Chew) 750 mg PO Q4H PRN PRN Reason: Heartburn Dextrose (Dextrose 50 % 25 Gm/50 Ml Syringe) 25 gm IVPUSH Q15M PRN; Protocol PRN Reason: per Hypoglycemia Standing Ord. Folic Acid (Folic Acid 1 Mg Tablet) 1 mg PO DAILY [facility] Last Admin: 10/09/24 09:06 Dose: 1 mg Documented By: GUERRERO Gabapentin (Gabapentin 300 Mg Capsule) 300 mg PO TID [facility] Last Admin: 10/09/24 09:07 Dose: 300 mg Documented By: GUERRERO Glucose (Glucose Gel 15 Gm Gel..Gram.) 15 gm PO Q15M PRN; Protocol PRN Reason: per Hypoglycemia Standing Ord. Heparin Sodium (Porcine) (Heparin Sodium,Porcine 5,000 Unit/Ml Vial) 5,000 unit SUBCUT BID [facility] Last Admin: 10/09/24 09:07 Dose: 5,000 unit Documented By: GUERRERO Hydromorphone HCl (Hydromorphone Hcl 0.5 Mg/0.5 Ml Syringe) 0.25 mg IVPUSH Q4H PRN; Protocol PRN Reason: Pain, Severe (Pain Scale 7-10) Sodium Bicarbonate 150 meq/ (Dextrose) 1,000 mls @ 75 mls/hr IV .[id number] [facility] Last Admin: 10/09/24 00:31 Dose: 75 mls/hr Documented By: SILVIA Insulin Human Lispro (Insulin Lispro 100 Unit/Ml 3 Ml Vial) 0 unit SUBCUT QIDACHS [facility]; Protocol Last Admin: 10/09/24 07:06 Dose: Not Given Documented By: GUERRERO Non-Admin Reason: No Insulin Coverage Magnesium Hydroxide (Milk Of Magnesia 30 Ml Oral.Susp) 30 ml PO DAILY PRN PRN Reason: Constipation Melatonin (Melatonin 3 Mg Tablet) 6 mg PO BEDTIME PRN PRN Reason: Insomnia Ondansetron HCl (Ondansetron Hcl 4 Mg/2 Ml Vial) 4 mg IVPUSH Q8H PRN PRN Reason: Nausea and Vomiting Last Admin: 10/09/24 01:25 Dose: 4 mg Documented By: SILVIA Oxycodone HCl (Oxycodone Hcl Immed Release 5 Mg Tablet) 5 mg PO Q6H PRN PRN Reason: Pain, Moderate(Pain Scale 4-6) Sodium Chloride (0.9 % Sodium Chloride Flush 3 Ml Syringe) [facility] Last Admin: 10/09/24 09:08 Dose: Not Given Documented By: GUERRERO Non-Admin Reason: IV Running Labs 10/09/24 05:48 10/09/24 05:48 Labs: Laboratory Results - last 24 hr 10/08/24 10/08/24 10/08/24 16:12 20:12 22:34 MCV 100.0 H MCH 32.9 MCHC 32.9 RDW 13.7 Plt Count 154 L MPV 10.5 Immature Gran % (Auto) 0.9 H Neut % (Auto) 59.8 Lymph % (Auto) 26.6 [place] % (Auto) 10.6 Eos % (Auto) 1.4 Baso % (Auto) 0.7 Lymph # (Auto) 1.2 [place] # (Auto) 0.5 Eos # (Auto) 0.1 Baso # (Auto) 0.0 Abs Immat Gran (auto) 0.04 H Absolute Neuts (auto) 2.7 Absolute Nucleated RBC 0.030 H Nucleated RBC % (auto) 0.7 H VBG pH 7.13 L* VBG pCO2 30 VBG pO2 51 VBG HCO3 10 L VBG O2 Saturation 74.0 VBG Base Excess -17.1 Anion Gap 17 18 Estim Creat Clear Calc 8.9 10.4 Estimated GFR 14 16 POC Glucose Random Glucose 89 102 Lactic Acid 0.6 Calcium 6.6 L 6.9 L Magnesium 0.7 L* 1.4 L* Iron TIBC % Saturation Unsat Iron Binding Total Bilirubin 0.5 Direct Bilirubin 0.2 AST 25 ALT < 6 Alkaline Phosphatase 97 B-Natriuretic Peptide 721 H Total Protein 5.7 L Albumin 3.1 L Vitamin B12 Folate Urine Color Urine Appearance Urine pH Ur Specific [place] Urine Protein Urine Glucose (UA) Urine Ketones Urine Blood Urine Nitrite Ur Leukocyte Esterase Ur Random Sodium Ur Random Potassium Ur Random Chloride Influenza Type A (PCR) NEGATIVE Influenza Type B (PCR) NEGATIVE RSV RNA Qual (PCR) NEGATIVE SARS-CoV-2 RNA (RT-PCR) NEGATIVE 10/08/24 10/09/24 10/09/24 22:39 00:20 05:48 MCV 99.6 H MCH 33.2 H MCHC 33.3 RDW 13.8 Plt Count 132 L MPV 10.5 Immature Gran % (Auto) 0.3 Neut % (Auto) 71.7 Lymph % (Auto) 18.4 L [place] % (Auto) 8.1 Eos % (Auto) 0.9 Baso % (Auto) 0.6 Lymph # (Auto) 0.6 L [place] # (Auto) 0.3 Eos # (Auto) 0.0 Baso # (Auto) 0.0 Abs Immat Gran (auto) 0.01 Absolute Neuts (auto) 2.3 Absolute Nucleated RBC 0.000 Nucleated RBC % (auto) 0.0 VBG pH 7.24 L VBG pCO2 24 VBG pO2 79 VBG HCO3 10 L VBG O2 Saturation 97.0 VBG Base Excess -14.9 Anion Gap 19 Estim Creat Clear Calc 10.7 Estimated GFR 17 POC Glucose Random Glucose 142 H Lactic Acid Calcium 7.6 L D Magnesium 2.1 Iron 64 TIBC 103 L % Saturation 62 H Unsat Iron Binding 39 Total Bilirubin Direct Bilirubin AST ALT Alkaline Phosphatase B-Natriuretic Peptide Total Protein Albumin Vitamin B12 330 Folate 5.2 Urine Color Yellow Urine Appearance Clear Urine pH 5.0 Ur Specific [place] 1.015 Urine Protein Trace Urine Glucose (UA) Negative Urine Ketones Trace Urine Blood Negative Urine Nitrite Negative Ur Leukocyte Esterase Negative Ur Random Sodium 36.0 Ur Random Potassium 26.1 Ur Random Chloride 43.0 Influenza Type A (PCR) Influenza Type B (PCR) RSV RNA Qual (PCR) SARS-CoV-2 RNA (RT-PCR) 10/09/24 10/09/24 06:05 07:05 MCV MCH MCHC RDW Plt Count MPV Immature Gran % (Auto) Neut % (Auto) Lymph % (Auto) [place] % (Auto) Eos % (Auto) Baso % (Auto) Lymph # (Auto) [place] # (Auto) Eos # (Auto) Baso # (Auto) Abs Immat Gran (auto) Absolute Neuts (auto) Absolute Nucleated RBC Nucleated RBC % (auto) VBG pH VBG pCO2 VBG pO2 VBG HCO3 VBG O2 Saturation VBG Base Excess Anion Gap Estim Creat Clear Calc Estimated GFR POC Glucose 123 H Random Glucose Lactic Acid 0.4 L Calcium Magnesium Iron TIBC % Saturation Unsat Iron Binding Total Bilirubin Direct Bilirubin AST ALT Alkaline Phosphatase B-Natriuretic Peptide Total Protein Albumin Vitamin B12 Folate Urine Color Urine Appearance Urine pH Ur Specific [place] Urine Protein Urine Glucose (UA) Urine Ketones Urine Blood Urine Nitrite Ur Leukocyte Esterase Ur Random Sodium Ur Random Potassium Ur Random Chloride Influenza Type A (PCR) Influenza Type B (PCR) RSV RNA Qual (PCR) SARS-CoV-2 RNA (RT-PCR) Assessment and Plan (1) Hypotension: Status: Acute Plan 79F PMH CKD 3B, chronic diastolic CHF, hypertension, diabetes, COPD, remote history of osteosarcoma status post BKA presented with fatigue and weakness Weakness and fatigue due to acute kidney injury on CKD 3B due to hypotension and dehydration complicated by acute metabolic acidosis, acute hyperkalemia Hold antihypertensives and diuretics Continue IV bicarb Potassium normalized Monitor labs, Nephro eval Acute hypomagnesemia, hypocalcemia Replace and monitor Chronic Anemia of inflammation and CKD Pancytopenia with Borderline B12 and folate deficiency Replace Pressure ulcer Wound care Diabetes Insulin sliding scale COPD Stable DVT prophylaxis with heparin subQ DNR/DNI reason for continued hospitalization:monitoring labs Quality Stroke Does the patient have a stroke diagnosis?: No VTE Prior VTE?: No VTE Risk Level:: Medical - moderate - high VTE Device Contraindication: Treatment Not Indicated VTE Drug Contraindication: N/A - Med Ordered
--- NOTE | 2024-10-09 11:08 | PM.PNGS ---
Subjective Subjective Date of Service: 10/09/24 Interval history: Denies any abdominal pain Tolerating diet well Feels well overall Physical Exam Vital Signs: Vital Signs: Last Vital Signs Temp 97.4 F 10/09/24 10:13 Pulse 80 10/09/24 10:13 Resp 17 10/09/24 10:13 BP 101/72 10/09/24 10:13 Pulse Ox 92 10/09/24 10:13 O2 Del Method Room Air 10/09/24 10:13 BMI result Body Mass Index 28.2 Const: General: comfortable and no acute distress Resp: Effort & Inspection: normal respiratory effort Cardio: Rate: regular rate GI: Palpation (GI): Soft to palpation, not firm, nontender and no guarding Objective Data Active Medications Acetaminophen (Acetaminophen 325 Mg Tablet) 975 mg PO Q6H PRN PRN Reason: Pain, Mild 1-3,fever,headache Last Admin: 10/09/24 09:13 Dose: 975 mg Documented By: GUERRERO Atorvastatin Calcium (Atorvastatin Calcium 40 Mg Tablet) 40 mg PO DAILY [facility] Last Admin: 10/09/24 09:06 Dose: 40 mg Documented By: GUERRERO Calcium Carbonate (Calcium Carbonate 750 Mg Tab.Chew) 750 mg PO Q4H PRN PRN Reason: Heartburn Dextrose (Dextrose 50 % 25 Gm/50 Ml Syringe) 25 gm IVPUSH Q15M PRN; Protocol PRN Reason: per Hypoglycemia Standing Ord. Folic Acid (Folic Acid 1 Mg Tablet) 1 mg PO DAILY [facility] Last Admin: 10/09/24 09:06 Dose: 1 mg Documented By: GUERRERO Gabapentin (Gabapentin 300 Mg Capsule) 300 mg PO TID [facility] Last Admin: 10/09/24 09:07 Dose: 300 mg Documented By: GUERRERO Glucose (Glucose Gel 15 Gm Gel..Gram.) 15 gm PO Q15M PRN; Protocol PRN Reason: per Hypoglycemia Standing Ord. Heparin Sodium (Porcine) (Heparin Sodium,Porcine 5,000 Unit/Ml Vial) 5,000 unit SUBCUT BID [facility] Last Admin: 10/09/24 09:07 Dose: 5,000 unit Documented By: GUERRERO Hydromorphone HCl (Hydromorphone Hcl 0.5 Mg/0.5 Ml Syringe) 0.25 mg IVPUSH Q4H PRN; Protocol PRN Reason: Pain, Severe (Pain Scale 7-10) Sodium Bicarbonate 150 meq/ (Dextrose) 1,000 mls @ 75 mls/hr IV .[id number] [facility] Last Admin: 10/09/24 00:31 Dose: 75 mls/hr Documented By: SILVIA Insulin Human Lispro (Insulin Lispro 100 Unit/Ml 3 Ml Vial) 0 unit SUBCUT QIDACHS [facility]; Protocol Last Admin: 10/09/24 07:06 Dose: Not Given Documented By: GUERRERO Non-Admin Reason: No Insulin Coverage Magnesium Hydroxide (Milk Of Magnesia 30 Ml Oral.Susp) 30 ml PO DAILY PRN PRN Reason: Constipation Melatonin (Melatonin 3 Mg Tablet) 6 mg PO BEDTIME PRN PRN Reason: Insomnia Ondansetron HCl (Ondansetron Hcl 4 Mg/2 Ml Vial) 4 mg IVPUSH Q8H PRN PRN Reason: Nausea and Vomiting Last Admin: 10/09/24 01:25 Dose: 4 mg Documented By: SILVIA Oxycodone HCl (Oxycodone Hcl Immed Release 5 Mg Tablet) 5 mg PO Q6H PRN PRN Reason: Pain, Moderate(Pain Scale 4-6) Sodium Chloride (0.9 % Sodium Chloride Flush 3 Ml Syringe) [facility] Last Admin: 10/09/24 09:08 Dose: Not Given Documented By: GUERRERO Non-Admin Reason: IV Running Labs 10/09/24 05:48 10/09/24 05:48 Labs: Laboratory Results - last 24 hr 10/08/24 10/08/24 10/08/24 16:12 20:12 22:34 MCV 100.0 H MCH 32.9 MCHC 32.9 RDW 13.7 Plt Count 154 L MPV 10.5 Immature Gran % (Auto) 0.9 H Neut % (Auto) 59.8 Lymph % (Auto) 26.6 [place] % (Auto) 10.6 Eos % (Auto) 1.4 Baso % (Auto) 0.7 Lymph # (Auto) 1.2 [place] # (Auto) 0.5 Eos # (Auto) 0.1 Baso # (Auto) 0.0 Abs Immat Gran (auto) 0.04 H Absolute Neuts (auto) 2.7 Absolute Nucleated RBC 0.030 H Nucleated RBC % (auto) 0.7 H VBG pH 7.13 L* VBG pCO2 30 VBG pO2 51 VBG HCO3 10 L VBG O2 Saturation 74.0 VBG Base Excess -17.1 Anion Gap 17 18 Estim Creat Clear Calc 8.9 10.4 Estimated GFR 14 16 POC Glucose Random Glucose 89 102 Lactic Acid 0.6 Calcium 6.6 L 6.9 L Magnesium 0.7 L* 1.4 L* Iron TIBC % Saturation Unsat Iron Binding Total Bilirubin 0.5 Direct Bilirubin 0.2 AST 25 ALT < 6 Alkaline Phosphatase 97 B-Natriuretic Peptide 721 H Total Protein 5.7 L Albumin 3.1 L Vitamin B12 Folate Urine Color Urine Appearance Urine pH Ur Specific [place] Urine Protein Urine Glucose (UA) Urine Ketones Urine Blood Urine Nitrite Ur Leukocyte Esterase Ur Random Sodium Ur Random Potassium Ur Random Chloride Influenza Type A (PCR) NEGATIVE Influenza Type B (PCR) NEGATIVE RSV RNA Qual (PCR) NEGATIVE SARS-CoV-2 RNA (RT-PCR) NEGATIVE 10/08/24 10/09/24 10/09/24 22:39 00:20 05:48 MCV 99.6 H MCH 33.2 H MCHC 33.3 RDW 13.8 Plt Count 132 L MPV 10.5 Immature Gran % (Auto) 0.3 Neut % (Auto) 71.7 Lymph % (Auto) 18.4 L [place] % (Auto) 8.1 Eos % (Auto) 0.9 Baso % (Auto) 0.6 Lymph # (Auto) 0.6 L [place] # (Auto) 0.3 Eos # (Auto) 0.0 Baso # (Auto) 0.0 Abs Immat Gran (auto) 0.01 Absolute Neuts (auto) 2.3 Absolute Nucleated RBC 0.000 Nucleated RBC % (auto) 0.0 VBG pH 7.24 L VBG pCO2 24 VBG pO2 79 VBG HCO3 10 L VBG O2 Saturation 97.0 VBG Base Excess -14.9 Anion Gap 19 Estim Creat Clear Calc 10.7 Estimated GFR 17 POC Glucose Random Glucose 142 H Lactic Acid Calcium 7.6 L D Magnesium 2.1 Iron 64 TIBC 103 L % Saturation 62 H Unsat Iron Binding 39 Total Bilirubin Direct Bilirubin AST ALT Alkaline Phosphatase B-Natriuretic Peptide Total Protein Albumin Vitamin B12 330 Folate 5.2 Urine Color Yellow Urine Appearance Clear Urine pH 5.0 Ur Specific [place] 1.015 Urine Protein Trace Urine Glucose (UA) Negative Urine Ketones Trace Urine Blood Negative Urine Nitrite Negative Ur Leukocyte Esterase Negative Ur Random Sodium 36.0 Ur Random Potassium 26.1 Ur Random Chloride 43.0 Influenza Type A (PCR) Influenza Type B (PCR) RSV RNA Qual (PCR) SARS-CoV-2 RNA (RT-PCR) 10/09/24 10/09/24 06:05 07:05 MCV MCH MCHC RDW Plt Count MPV Immature Gran % (Auto) Neut % (Auto) Lymph % (Auto) [place] % (Auto) Eos % (Auto) Baso % (Auto) Lymph # (Auto) [place] # (Auto) Eos # (Auto) Baso # (Auto) Abs Immat Gran (auto) Absolute Neuts (auto) Absolute Nucleated RBC Nucleated RBC % (auto) VBG pH VBG pCO2 VBG pO2 VBG HCO3 VBG O2 Saturation VBG Base Excess Anion Gap Estim Creat Clear Calc Estimated GFR POC Glucose 123 H Random Glucose Lactic Acid 0.4 L Calcium Magnesium Iron TIBC % Saturation Unsat Iron Binding Total Bilirubin Direct Bilirubin AST ALT Alkaline Phosphatase B-Natriuretic Peptide Total Protein Albumin Vitamin B12 Folate Urine Color Urine Appearance Urine pH Ur Specific [place] Urine Protein Urine Glucose (UA) Urine Ketones Urine Blood Urine Nitrite Ur Leukocyte Esterase Ur Random Sodium Ur Random Potassium Ur Random Chloride Influenza Type A (PCR) Influenza Type B (PCR) RSV RNA Qual (PCR) SARS-CoV-2 RNA (RT-PCR) Procedures Date of Service Date of Service: 10/09/24 Progress Note: A&P Assessment and plan (1) Ventral hernia: Status: Acute Assessment and Plan: I was consulted for a small fat containing ventral hernia on her CAT scan This is asymptomatic No GI complaints No surgical intervention indicated at this time Patient was other multiple medical issues as well Time Spent With Patient Time: Total time managing care of this patient today ____ minutes. Quality Stroke Does the patient have a stroke diagnosis?: No VTE Prior VTE?: No VTE Risk Level:: Medical - moderate - high VTE Device Contraindication: Treatment Not Indicated VTE Drug Contraindication: N/A - Med Ordered
[2024-10-09 11:41] LABS: Glucose, Whole Blood 157 mg/dL (60-115)
[2024-10-09] MEDS: Insulin Lispro 100 UNIT/ML 3 ML VIAL SUBCUT ×2 (11:59→20:10)
--- NOTE | 2024-10-09 13:44 | P.CONNP_ITS ---
History of Present Illness Reason for Consult Consult date: 10/09/24 Chief Complaint Chief complaint: weakness History of Present Illness Narrative: 79 yo F with CKD IV and bl Cr 2 uncontrolled DM, HTN, COPD, left BKA as teenager for bone cancer, who presented to the ED due to lightheadedness, generalized fatigue and weakness with decreased appetite for about 3 weeks. The patient reports that she does not have any nausea or vomiting but just has no desire to eat. She also reports very infrequent and small volume urination for the past week. She denies any dysuria or urgency Nephrology is being consulted for MALLORY Her BP had been a challenge to manage though despite being on Coreg 25 bid, Amlodipine 10 daily, Hydralazine 25, Imdur 90, Lisinopril 20 as per outpatient records now she is normotensive to mildly hypotensive in the hospital . [facility] Past Medical History Medical History (Updated 10/09/24 @ 23:52 by Aime Magana MD) CKD (chronic kidney disease) stage 3, GFR 30-59 ml/min Osteosarcoma Diabetes COPD (chronic obstructive pulmonary disease) HTN (hypertension) Surgical History Surgical History History of partial hysterectomy History of cholecystectomy History of tubal ligation H/O excision of ganglion cyst History of umbilical hernia repair History of repair of inguinal hernia Social History Social History Household Members: None Housing: Assisted Living Facility Do you presently have visiting nurse or other home services: No Alcohol intake: never Patient Tobacco Use Status: Never used Tobacco Current occupational status: disabled Current occupation: left handed Meds Allergies Allergy/AdvReac Type Severity Reaction Status Date / Time Sulfa (Sulfonamide Allergy Mild N/V Verified 10/08/24 15:13 Antibiotics) Sulfamethoxazole Allergy Unknown vomiting Uncoded 10/08/24 15:13 Active Medications: Current Medications Acetaminophen (Acetaminophen 325 Mg Tablet) 975 mg PO Q6H PRN PRN Reason: Pain, Mild 1-3,fever,headache Last Admin: 10/09/24 09:13 Dose: 975 mg Atorvastatin Calcium (Atorvastatin Calcium 40 Mg Tablet) 40 mg PO DAILY [facility] Last Admin: 10/09/24 09:06 Dose: 40 mg Calcium Carbonate (Calcium Carbonate 750 Mg Tab.Chew) 750 mg PO Q4H PRN PRN Reason: Heartburn Dextrose (Dextrose 50 % 25 Gm/50 Ml Syringe) 25 gm IVPUSH Q15M PRN; Protocol PRN Reason: per Hypoglycemia Standing Ord. Folic Acid (Folic Acid 1 Mg Tablet) 1 mg PO DAILY [facility] Last Admin: 10/09/24 09:06 Dose: 1 mg Gabapentin (Gabapentin 300 Mg Capsule) 300 mg PO TID [facility] Last Admin: 10/09/24 09:07 Dose: 300 mg Glucose (Glucose Gel 15 Gm Gel..Gram.) 15 gm PO Q15M PRN; Protocol PRN Reason: per Hypoglycemia Standing Ord. Heparin Sodium (Porcine) (Heparin Sodium,Porcine 5,000 Unit/Ml Vial) 5,000 unit SUBCUT BID [facility] Last Admin: 10/09/24 09:07 Dose: 5,000 unit Hydromorphone HCl (Hydromorphone Hcl 0.5 Mg/0.5 Ml Syringe) 0.25 mg IVPUSH Q4H PRN; Protocol PRN Reason: Pain, Severe (Pain Scale 7-10) Sodium Bicarbonate 150 meq/ (Dextrose) 1,000 mls @ 75 mls/hr IV .[id number] [facility] Last Admin: 10/09/24 00:31 Dose: 75 mls/hr Insulin Human Lispro (Insulin Lispro 100 Unit/Ml 3 Ml Vial) 0 unit SUBCUT QIDACHS [facility]; Protocol Last Admin: 10/09/24 11:59 Dose: 2 unit Magnesium Hydroxide (Milk Of Magnesia 30 Ml Oral.Susp) 30 ml PO DAILY PRN PRN Reason: Constipation Melatonin (Melatonin 3 Mg Tablet) 6 mg PO BEDTIME PRN PRN Reason: Insomnia Ondansetron HCl (Ondansetron Hcl 4 Mg/2 Ml Vial) 4 mg IVPUSH Q8H PRN PRN Reason: Nausea and Vomiting Last Admin: 10/09/24 01:25 Dose: 4 mg Oxycodone HCl (Oxycodone Hcl Immed Release 5 Mg Tablet) 5 mg PO Q6H PRN PRN Reason: Pain, Moderate(Pain Scale 4-6) Sodium Chloride (0.9 % Sodium Chloride Flush 3 Ml Syringe) 3 ml IVFLUSH QSHIFT [facility] Last Admin: 10/09/24 09:08 Dose: Not Given Home Medications ?Medication ?Instructions ?Recorded ?Confirmed ?Last Taken ?Type carvedilol 25 mg tablet 25 mg PO BID 06/22/20 10/08/24 10/08/24 History cholecalciferol (vitamin D3) 50 50 mcg PO DAILY 06/22/20 10/08/24 10/08/24 History mcg (2,000 unit) capsule gabapentin 300 mg capsule 300 mg PO TID 03/31/24 10/08/24 10/08/24 History isosorbide mononitrate 30 mg 90 mg PO DAILY 03/31/24 10/08/24 10/08/24 History tablet,extended release 24 hr omeprazole 40 mg capsule,delayed 40 mg PO DAILY@0630 03/31/24 10/08/24 10/08/24 History release torsemide 20 mg tablet 40 mg PO DAILY 03/31/24 10/08/24 10/08/24 History albuterol sulfate 90 mcg/actuation 2 puff inhalation Q6H PRN 10/08/24 10/08/24 Unknown History aerosol inhaler Shortness Of Breath Or Wheezing amlodipine 10 mg tablet 10 mg PO DAILY 10/08/24 10/08/24 10/08/24 History atorvastatin 40 mg tablet 40 mg PO DAILY 10/08/24 10/08/24 10/08/24 History budesonide 160 mcg-glycopyr 9 2 inh inhalation BID 10/08/24 10/08/24 10/08/24 History mcg-formot 4.8 mcg/actuation HFA inhaler (Breztri Aerosphere) buprenorphine 20 mcg/hour weekly 1 patch topical FR 10/08/24 10/08/24 10/01/24 History transdermal patch (Butrans) empagliflozin 10 mg tablet 10 mg PO DAILY 10/08/24 10/08/24 10/08/24 History (Jardiance) hydroxyzine pamoate 25 mg capsule 25 mg PO QID 10/08/24 10/08/24 10/08/24 History lisinopril 10 mg tablet 10 mg PO BID 10/08/24 10/08/24 Unknown History Physical Exam Vital Signs: Last Vital Signs Temp 97.5 F 10/09/24 11:09 Pulse 85 10/09/24 11:09 Resp 19 10/09/24 11:09 BP 105/53 L 10/09/24 11:09 Pulse Ox 96 10/09/24 11:09 O2 Del Method Room Air 10/09/24 11:09 BMI result Body Mass Index 28.2 cvs: s1s2 Rs; cta ABd; soft Results Lab Results 10/09/24 05:48 10/09/24 05:48 Lab results: Chemistry 10/08/24 10/08/24 10/09/24 16:12 22:34 05:48 Sodium 138 138 139 Potassium 5.4 H 5.9 H 4.6 D Carbon Dioxide 10 L* 10 L* 12 L BUN 83 H 71 H 71 H Creatinine 3.25 H 2.80 H 2.72 H Calcium 6.6 L 6.9 L 7.6 L D Hematology 10/08/24 10/09/24 16:12 05:48 WBC 4.4 L 3.2 L Hgb 9.1 L 7.6 L Plt Count 154 L 132 L Urinalysis 10/09/24 00:20 Urine Color Yellow Urine Appearance Clear Urine pH 5.0 Ur Specific [place] 1.015 Urine Protein Trace Urine Glucose (UA) Negative Urine Ketones Trace Urine Blood Negative Urine Nitrite Negative Ur Leukocyte Esterase Negative Assessment and Plan (1) Acute kidney injury superimposed on CKD: Status: Acute (2) CKD stage 4 secondary to hypertension: Status: Acute Plan Cathy is a 77-year-old female with past medical history significant for diabetes, hypertension, COPD, left BKA , hypertensive emergency, acute kidney injury and HFpef Impression: 1. acute kidney injury on CKD stage 4. BL cr of 2- now with cr of 3.25---> 2.8 2. 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 h/o Uncontrolled hypertension- now relatively hypotensive / hypovolemic 4. Acute on chronic metabolic acidosis REcommend iv isotonic bicarb @ 75ml / hr to replete volume cont po bicarb as well avoid nephrotoxins If renal function doesnot improve as expected with volume repletion, will expand work up Procedures Date of Service Date of Service: 10/09/24
[2024-10-09] MEDS: 0.9 % Sodium Chloride Flush 3 ML SYRINGE IVFLUSH ×2 (13:52→20:10)
--- NOTE | 2024-10-09 14:27 | HO.SKINPHOTO ---
Location: Category: Stage: Length: Width: Depth: cm Location: Category: Stage: Length: Width: Depth: cm Location: Category: Stage: Length: Width: Depth: cm Location: Category: Stage: Length: Width: Depth: cm Location: Category: Stage: Length: Width: Depth: cm Location: Category: Stage: Length: Width: Depth: cm
[2024-10-09 16:13] LABS: Glucose, Whole Blood 149 mg/dL (60-115)
[2024-10-09 19:32] LABS: Glucose, Whole Blood 155 mg/dL (60-115)
[2024-10-09] MEDS: Melatonin 3 MG TABLET 6 MG PO (20:09)
[2024-10-09] MEDS: oxyCODONE HCl Immed Release 5 MG TABLET PO (20:09)
[2024-10-10] VITALS: BP 98/48; PULSE 81; RESP 20; TEMP 36.5; O2SAT 91
[2024-10-10 04:00] VITALS: BP 110/57; PULSE 81; RESP 20; TEMP 36.4; O2SAT 94
[2024-10-10] MEDS: oxyCODONE HCl Immed Release 5 MG TABLET PO ×2 (04:23→16:35)
[2024-10-10] MEDS: HYDROmorphone HCl 0.5 MG/0.5 ML SYRINGE 0.25 MG IVPUSH (05:48)
[2024-10-10 07:12] LABS: MANUAL DIFF FLAG NO
[2024-10-10 07:26] LABS: Hematocrit 23.6 % (37.0-47.0); Hemoglobin 8.1 g/dl (12.0-16.0); Mean Corpuscular HGB Conc 34.3 g/dl (31.0-35.0); Mean Corpuscular Hemoglobin 33.2 pg (27.0-33.0); Mean Corpuscular Volume 96.7 fL (80.0-98.0); Platelet Count 141 X10*3/uL (160-400); Red Blood Count 2.44 X10*6/uL (4.20-5.50); Red Cell Distribution Width 13.9 % (11.0-16.0); White Blood Count 3.6 X10*3/uL (4.8-10.8)
[2024-10-10 07:27] LABS: Basophils Percent Auto 0.6 % (0-2); Eosinophils Absolute Auto 0.1 X10*3/uL (0.0-0.4); Eosinophils Percent Auto 3.8 % (0-4); Hematocrit 23.4 % (37.0-47.0); Imm Gran Abs Auto 0.01 X10*3/uL (0.00-0.03); Imm Gran Pct Auto 0.3 % (0.0-0.4); Lymphocytes Absolute Auto 1.1 X10*3/uL (1.2-4.9); Lymphocytes Percent Auto 31.9 % (20-40); Mean Corpuscular HGB Conc 34.2 g/dl (31.0-35.0); Mean Corpuscular Hemoglobin 33.1 pg (27.0-33.0); Mean Corpuscular Volume 96.7 fL (80.0-98.0); Monocytes Absolute Auto 0.3 X10*3/uL (0.1-1.2); Monocytes Percent Auto 8.8 % (2-11); Neutrophils Absolute Auto 1.9 x10*3/uL (2.0-8.3); Neutrophils Percent Auto 54.6 % (45-73); Platelet Count 136 X10*3/uL (160-400); Red Blood Count 2.42 X10*6/uL (4.20-5.50); Red Cell Distribution Width 13.7 % (11.0-16.0); White Blood Count 3.4 X10*3/uL (4.8-10.8)
[2024-10-10 07:27] LABS: Glucose, Whole Blood 88 mg/dL (60-115)
[2024-10-10 07:40] VITALS: BP 111/53; PULSE 81; RESP 20; TEMP 36.3; O2SAT 91
[2024-10-10 07:46] LABS: Alanine Aminotransferase 12 U/L (0-31); Albumin Level 3.5 g/dL (3.5-5.0); Alkaline Phosphatase 79 U/L (39-117); Aspartate Amino Transferase 45 U/L (5-31); Bilirubin Direct 0.3 mg/dL (0.0-0.5); Bilirubin Total 0.6 mg/dL (0.0-1.0); Blood Urea Nitrogen 57 mg/dL (9-16); Calcium 7.9 mg/dL (8.4-10.2); Creatinine Clr Calc Pharmacy 13.9; Estimated Glomerular Filt Rate 21; Glucose Random 85 mg/dL (60-115); Magnesium 1.6 mg/dL (1.6-2.6); Total Protein 5.4 g/dL (6.5-8.0)
[2024-10-10] MEDS: Heparin Sodium,Porcine 5,000 UNIT/ML VIAL 5000 UNIT SUBCUT ×2 (08:07→20:25)
[2024-10-10] MEDS: Gabapentin 300 MG CAPSULE PO ×3 (08:07→20:25)
[2024-10-10] MEDS: Atorvastatin Calcium 40 MG TABLET PO (08:07)
[2024-10-10] MEDS: Folic Acid 1 MG TABLET PO (08:07)
[2024-10-10] MEDS: 0.9 % Sodium Chloride Flush 3 ML SYRINGE IVFLUSH ×3 (08:07→20:27)
[2024-10-10 08:17] LABS: Anion Gap 14 (12-20); Carbon Dioxide 25 mmol/L (22-29); Chloride 109 mmol/L (96-108); Potassium 3.9 mmol/L (3.3-5.1); Sodium 144 mmol/L (135-145)
--- NOTE | 2024-10-10 09:23 | PM.PNGS ---
Subjective Subjective Date of Service: 10/10/24 Interval history: Complains of back pain No GI complaints No pain on the abdomen is Physical Exam Vital Signs: Vital Signs: Last Vital Signs Temp 97.3 F 10/10/24 07:40 Pulse 81 10/10/24 07:40 Resp 20 10/10/24 07:40 BP 111/53 L 10/10/24 07:40 Pulse Ox 91 L 10/10/24 07:40 O2 Del Method Room Air 10/10/24 07:40 BMI result Body Mass Index 28.2 Const: General: comfortable and no acute distress Resp: Effort & Inspection: normal respiratory effort Cardio: Rate: regular rate GI: Palpation (GI): Soft to palpation, not firm, nontender and no guarding Objective Data Active Medications Acetaminophen (Acetaminophen 325 Mg Tablet) 975 mg PO Q6H PRN PRN Reason: Pain, Mild 1-3,fever,headache Last Admin: 10/09/24 20:09 Dose: 975 mg Documented By: GERARD Atorvastatin Calcium (Atorvastatin Calcium 40 Mg Tablet) 40 mg PO DAILY [facility] Last Admin: 10/10/24 08:07 Dose: 40 mg Documented By: LINNEA Calcium Carbonate (Calcium Carbonate 750 Mg Tab.Chew) 750 mg PO Q4H PRN PRN Reason: Heartburn Dextrose (Dextrose 50 % 25 Gm/50 Ml Syringe) 25 gm IVPUSH Q15M PRN; Protocol PRN Reason: per Hypoglycemia Standing Ord. Folic Acid (Folic Acid 1 Mg Tablet) 1 mg PO DAILY [facility] Last Admin: 10/10/24 08:07 Dose: 1 mg Documented By: LINNEA Gabapentin (Gabapentin 300 Mg Capsule) 300 mg PO TID [facility] Last Admin: 10/10/24 08:07 Dose: 300 mg Documented By: LINNEA Glucose (Glucose Gel 15 Gm Gel..Gram.) 15 gm PO Q15M PRN; Protocol PRN Reason: per Hypoglycemia Standing Ord. Heparin Sodium (Porcine) (Heparin Sodium,Porcine 5,000 Unit/Ml Vial) 5,000 unit SUBCUT BID [facility] Last Admin: 10/10/24 08:07 Dose: 5,000 unit Documented By: LINNEA Hydromorphone HCl (Hydromorphone Hcl 0.5 Mg/0.5 Ml Syringe) 0.25 mg IVPUSH Q4H PRN; Protocol PRN Reason: Pain, Severe (Pain Scale 7-10) Last Admin: 10/10/24 05:48 Dose: 0.25 mg Documented By: GERARD Insulin Human Lispro (Insulin Lispro 100 Unit/Ml 3 Ml Vial) 0 unit SUBCUT QIDACHS [facility]; Protocol Last Admin: 10/10/24 07:30 Dose: Not Given Documented By: LINNEA Non-Admin Reason: No Insulin Coverage Magnesium Hydroxide (Milk Of Magnesia 30 Ml Oral.Susp) 30 ml PO DAILY PRN PRN Reason: Constipation Melatonin (Melatonin 3 Mg Tablet) 6 mg PO BEDTIME PRN PRN Reason: Insomnia Last Admin: 10/09/24 20:09 Dose: 6 mg Documented By: GERARD Ondansetron HCl (Ondansetron Hcl 4 Mg/2 Ml Vial) 4 mg IVPUSH Q8H PRN PRN Reason: Nausea and Vomiting Last Admin: 10/09/24 01:25 Dose: 4 mg Documented By: SILVIA Oxycodone HCl (Oxycodone Hcl Immed Release 5 Mg Tablet) 5 mg PO Q6H PRN PRN Reason: Pain, Moderate(Pain Scale 4-6) Last Admin: 10/10/24 04:23 Dose: 5 mg Documented By: GERARD Sodium Chloride (0.9 % Sodium Chloride Flush 3 Ml Syringe) [facility] Last Admin: 10/10/24 08:07 Dose: 3 ml Documented By: LINNEA Labs 10/10/24 07:04 10/10/24 07:04 Labs: Laboratory Results - last 24 hr 10/09/24 10/09/24 10/09/24 11:05 15:33 19:21 MCV MCH MCHC RDW Plt Count MPV Immature Gran % (Auto) Neut % (Auto) Lymph % (Auto) [place] % (Auto) Eos % (Auto) Baso % (Auto) Lymph # (Auto) [place] # (Auto) Eos # (Auto) Baso # (Auto) Abs Immat Gran (auto) Absolute Neuts (auto) Absolute Nucleated RBC Nucleated RBC % (auto) Anion Gap Estim Creat Clear Calc Estimated GFR POC Glucose 157 H 149 H 155 H Random Glucose Calcium Magnesium Total Bilirubin Direct Bilirubin AST ALT Alkaline Phosphatase Total Protein Albumin 10/10/24 10/10/24 10/10/24 07:04 07:04 07:04 MCV 96.7 96.7 MCH 33.1 H 33.2 H MCHC 34.2 RDW Plt Count MPV Immature Gran % (Auto) Neut % (Auto) Lymph % (Auto) [place] % (Auto) Eos % (Auto) Baso % (Auto) Lymph # (Auto) [place] # (Auto) Eos # (Auto) Baso # (Auto) Abs Immat Gran (auto) Absolute Neuts (auto) Absolute Nucleated RBC Nucleated RBC % (auto) Anion Gap Estim Creat Clear Calc Estimated GFR POC Glucose Random Glucose Calcium Magnesium Total Bilirubin Direct Bilirubin AST ALT Alkaline Phosphatase Total Protein Albumin 10/10/24 10/10/24 10/10/24 07:04 07:04 07:04 MCV MCH MCHC 34.3 RDW 13.7 13.9 Plt Count 136 L 141 L MPV 11.0 Immature Gran % (Auto) Neut % (Auto) Lymph % (Auto) [place] % (Auto) Eos % (Auto) Baso % (Auto) Lymph # (Auto) [place] # (Auto) Eos # (Auto) Baso # (Auto) Abs Immat Gran (auto) Absolute Neuts (auto) Absolute Nucleated RBC Nucleated RBC % (auto) Anion Gap Estim Creat Clear Calc Estimated GFR POC Glucose Random Glucose Calcium Magnesium Total Bilirubin Direct Bilirubin AST ALT Alkaline Phosphatase Total Protein Albumin 10/10/24 10/10/24 10/10/24 07:04 07:04 07:04 MCV MCH MCHC RDW Plt Count MPV 11.0 Immature Gran % (Auto) 0.3 Neut % (Auto) 54.6 Lymph % (Auto) 31.9 [place] % (Auto) 8.8 Eos % (Auto) 3.8 Baso % (Auto) 0.6 Lymph # (Auto) 1.1 L [place] # (Auto) 0.3 Eos # (Auto) 0.1 Baso # (Auto) 0.0 Abs Immat Gran (auto) 0.01 Absolute Neuts (auto) 1.9 L Absolute Nucleated RBC 0.000 0.000 Nucleated RBC % (auto) 0.0 0.0 Anion Gap 14 Estim Creat Clear Calc 13.9 Estimated GFR 21 POC Glucose Random Glucose 85 Calcium 7.9 L Magnesium 1.6 Total Bilirubin 0.6 Direct Bilirubin 0.3 AST 45 H ALT 12 Alkaline Phosphatase 79 Total Protein 5.4 L Albumin 3.5 10/10/24 07:16 MCV MCH MCHC RDW Plt Count MPV Immature Gran % (Auto) Neut % (Auto) Lymph % (Auto) [place] % (Auto) Eos % (Auto) Baso % (Auto) Lymph # (Auto) [place] # (Auto) Eos # (Auto) Baso # (Auto) Abs Immat Gran (auto) Absolute Neuts (auto) Absolute Nucleated RBC Nucleated RBC % (auto) Anion Gap Estim Creat Clear Calc Estimated GFR POC Glucose 88 Random Glucose Calcium Magnesium Total Bilirubin Direct Bilirubin AST ALT Alkaline Phosphatase Total Protein Albumin Microbiology Microbiology Results: Microbiology 10/08/24 16:12 Blood Culture - Preliminary Blood - Venous No growth after 24 hours. 10/08/24 16:07 Blood Culture - Preliminary Blood - Venous No growth after 24 hours. Procedures Date of Service Date of Service: 10/10/24 Progress Note: A&P Assessment and plan (1) Ventral hernia: Status: Acute Assessment and Plan: Has a fat containing hernia in the upper abdomen Asymptomatic No tenderness No GI issues She was multiple medical problems including chronic kidney disease No surgical intervention necessary at this time Time Spent With Patient Time: Total time managing care of this patient today ____ minutes. Quality Stroke Does the patient have a stroke diagnosis?: No VTE Prior VTE?: No VTE Risk Level:: Medical - moderate - high VTE Device Contraindication: Treatment Not Indicated VTE Drug Contraindication: N/A - Med Ordered
[2024-10-10] MEDS: ondansetron HCL 4 MG/2 ML VIAL IVPUSH (10:18)
--- NOTE | 2024-10-10 11:35 | HO.PM.IMPN ---
Subjective Subjective Date of Service: 10/10/24 Interval History: nausea Physical Exam Vital Signs: Vital Signs: Last Vital Signs Temp 97.3 F 10/10/24 07:40 Pulse 81 10/10/24 07:40 Resp 20 10/10/24 07:40 BP 111/53 L 10/10/24 07:40 Pulse Ox 91 L 10/10/24 07:40 O2 Del Method Room Air 10/10/24 07:40 BMI result Body Mass Index 28.2 Const: General: comfortable and no acute distress Resp: Effort & Inspection: normal respiratory effort Cardio: Rate: regular rate GI: Palpation (GI): Soft to palpation, not firm, nontender and no guarding Objective Data Active Medications Acetaminophen (Acetaminophen 325 Mg Tablet) 975 mg PO Q6H PRN PRN Reason: Pain, Mild 1-3,fever,headache Last Admin: 10/09/24 20:09 Dose: 975 mg Documented By: GERARD Atorvastatin Calcium (Atorvastatin Calcium 40 Mg Tablet) [address] [facility] Last Admin: 10/10/24 08:07 Dose: 40 mg Documented By: LINNEA Calcium Carbonate (Calcium Carbonate 750 Mg Tab.Chew) 750 mg PO Q4H PRN PRN Reason: Heartburn Dextrose (Dextrose 50 % 25 Gm/50 Ml Syringe) 25 gm IVPUSH Q15M PRN; Protocol PRN Reason: per Hypoglycemia Standing Ord. Folic Acid (Folic Acid 1 Mg Tablet) [address] [facility] Last Admin: 10/10/24 08:07 Dose: 1 mg Documented By: LINNEA Gabapentin (Gabapentin 300 Mg Capsule) [address] [facility] Last Admin: 10/10/24 08:07 Dose: 300 mg Documented By: LINNEA Glucose (Glucose Gel 15 Gm Gel..Gram.) 15 gm PO Q15M PRN; Protocol PRN Reason: per Hypoglycemia Standing Ord. Heparin Sodium (Porcine) (Heparin Sodium,Porcine 5,000 Unit/Ml Vial) 5,[address] [facility] Last Admin: 10/10/24 08:07 Dose: 5,000 unit Documented By: LINNEA Hydromorphone HCl (Hydromorphone Hcl 0.5 Mg/0.5 Ml Syringe) 0.25 mg IVPUSH Q4H PRN; Protocol PRN Reason: Pain, Severe (Pain Scale 7-10) Last Admin: 10/10/24 05:48 Dose: 0.25 mg Documented By: GERARD Insulin Human Lispro (Insulin Lispro 100 Unit/Ml 3 Ml Vial) [facility]; Protocol Last Admin: 10/10/24 07:30 Dose: Not Given Documented By: LINNEA Non-Admin Reason: No Insulin Coverage Magnesium Hydroxide (Milk Of Magnesia 30 Ml Oral.Susp) 30 ml PO DAILY PRN PRN Reason: Constipation Melatonin (Melatonin 3 Mg Tablet) 6 mg PO BEDTIME PRN PRN Reason: Insomnia Last Admin: 10/09/24 20:09 Dose: 6 mg Documented By: GERARD Ondansetron HCl (Ondansetron Hcl 4 Mg/2 Ml Vial) 4 mg IVPUSH Q8H PRN PRN Reason: Nausea and Vomiting Last Admin: 10/10/24 10:18 Dose: 4 mg Documented By: LINNEA Oxycodone HCl (Oxycodone Hcl Immed Release 5 Mg Tablet) 5 mg PO Q6H PRN PRN Reason: Pain, Moderate(Pain Scale 4-6) Last Admin: 10/10/24 04:23 Dose: 5 mg Documented By: GERARD Sodium Chloride (0.9 % Sodium Chloride Flush 3 Ml Syringe) 3 ml [facility] Last Admin: 10/10/24 08:07 Dose: 3 ml Documented By: LINNEA Labs 10/10/24 07:04 10/10/24 07:04 Labs: Laboratory Results - last 24 hr 10/09/24 10/09/24 10/09/24 11:05 15:33 19:21 MCV MCH MCHC RDW Plt Count MPV Immature Gran % (Auto) Neut % (Auto) Lymph % (Auto) [place] % (Auto) Eos % (Auto) Baso % (Auto) Lymph # (Auto) [place] # (Auto) Eos # (Auto) Baso # (Auto) Abs Immat Gran (auto) Absolute Neuts (auto) Absolute Nucleated RBC Nucleated RBC % (auto) Anion Gap Estim Creat Clear Calc Estimated GFR POC Glucose 157 H 149 H 155 H Random Glucose Calcium Magnesium Total Bilirubin Direct Bilirubin AST ALT Alkaline Phosphatase Total Protein Albumin 10/10/24 10/10/24 10/10/24 07:04 07:04 07:04 MCV 96.7 96.7 MCH 33.1 H 33.2 H MCHC 34.2 RDW Plt Count MPV Immature Gran % (Auto) Neut % (Auto) Lymph % (Auto) [place] % (Auto) Eos % (Auto) Baso % (Auto) Lymph # (Auto) [place] # (Auto) Eos # (Auto) Baso # (Auto) Abs Immat Gran (auto) Absolute Neuts (auto) Absolute Nucleated RBC Nucleated RBC % (auto) Anion Gap Estim Creat Clear Calc Estimated GFR POC Glucose Random Glucose Calcium Magnesium Total Bilirubin Direct Bilirubin AST ALT Alkaline Phosphatase Total Protein Albumin 10/10/24 10/10/24 10/10/24 07:04 07:04 07:04 MCV MCH MCHC 34.3 RDW 13.7 13.9 Plt Count 136 L 141 L MPV 11.0 Immature Gran % (Auto) Neut % (Auto) Lymph % (Auto) [place] % (Auto) Eos % (Auto) Baso % (Auto) Lymph # (Auto) [place] # (Auto) Eos # (Auto) Baso # (Auto) Abs Immat Gran (auto) Absolute Neuts (auto) Absolute Nucleated RBC Nucleated RBC % (auto) Anion Gap Estim Creat Clear Calc Estimated GFR POC Glucose Random Glucose Calcium Magnesium Total Bilirubin Direct Bilirubin AST ALT Alkaline Phosphatase Total Protein Albumin 10/10/24 10/10/24 10/10/24 07:04 07:04 07:04 MCV MCH MCHC RDW Plt Count MPV 11.0 Immature Gran % (Auto) 0.3 Neut % (Auto) 54.6 Lymph % (Auto) 31.9 [place] % (Auto) 8.8 Eos % (Auto) 3.8 Baso % (Auto) 0.6 Lymph # (Auto) 1.1 L [place] # (Auto) 0.3 Eos # (Auto) 0.1 Baso # (Auto) 0.0 Abs Immat Gran (auto) 0.01 Absolute Neuts (auto) 1.9 L Absolute Nucleated RBC 0.000 0.000 Nucleated RBC % (auto) 0.0 0.0 Anion Gap 14 Estim Creat Clear Calc 13.9 Estimated GFR 21 POC Glucose Random Glucose 85 Calcium 7.9 L Magnesium 1.6 Total Bilirubin 0.6 Direct Bilirubin 0.3 AST 45 H ALT 12 Alkaline Phosphatase 79 Total Protein 5.4 L Albumin 3.5 10/10/24 07:16 MCV MCH MCHC RDW Plt Count MPV Immature Gran % (Auto) Neut % (Auto) Lymph % (Auto) [place] % (Auto) Eos % (Auto) Baso % (Auto) Lymph # (Auto) [place] # (Auto) Eos # (Auto) Baso # (Auto) Abs Immat Gran (auto) Absolute Neuts (auto) Absolute Nucleated RBC Nucleated RBC % (auto) Anion Gap Estim Creat Clear Calc Estimated GFR POC Glucose 88 Random Glucose Calcium Magnesium Total Bilirubin Direct Bilirubin AST ALT Alkaline Phosphatase Total Protein Albumin Microbiology Microbiology Results: Microbiology 10/08/24 16:12 Blood Culture - Preliminary Blood - Venous No growth after 24 hours. 10/08/24 16:07 Blood Culture - Preliminary Blood - Venous No growth after 24 hours. Assessment and Plan (1) Hypotension: Status: Acute Plan 79F PMH CKD 3B, chronic diastolic CHF, hypertension, diabetes, COPD, remote history of osteosarcoma status post BKA presented with fatigue and weakness Weakness and fatigue due to acute kidney injury on CKD 3B due to hypotension and dehydration complicated by acute metabolic acidosis, acute hyperkalemia Hold antihypertensives and diuretics improved with bicarb Potassium and bicarb normalized Monitor labs, Nephro eval Acute hypomagnesemia, hypocalcemia Replaced esophogitrisa pepcid gi Chronic Anemia of inflammation and CKD Pancytopenia with Borderline B12 and folate deficiency Replace Pressure ulcer Wound care Diabetes Insulin sliding scale COPD Stable DVT prophylaxis with heparin subQ DNR/DNI reason for continued hospitalization:monitoring labs Quality Stroke Does the patient have a stroke diagnosis?: No VTE Prior VTE?: No VTE Risk Level:: Medical - moderate - high VTE Device Contraindication: Treatment Not Indicated VTE Drug Contraindication: N/A - Med Ordered
[2024-10-10 11:51] LABS: Glucose, Whole Blood 100 mg/dL (60-115)
[2024-10-10 11:52] VITALS: BP 117/56; PULSE 86; RESP 20; TEMP 37; O2SAT 90
[2024-10-10] MEDS: Acetaminophen 325 MG TABLET 975 MG PO (15:06)
[2024-10-10 15:31] VITALS: BP 121/58; PULSE 88; RESP 18; TEMP 36.8; O2SAT 90
[2024-10-10 15:52] LABS: Glucose, Whole Blood 95 mg/dL (60-115)
--- NOTE | 2024-10-10 16:31 | MHC.CM.PN ---
PT REPORTS SHE LIVES AT [facility] SHE HAS NO OUTSIDE SERVICES SHE USES A [facility] [employer] SHE DOES NOT HAVE A HCP, BUT DOES NOT FEEL WELL ENOUGH TO DO ONE TODAY PCP: DANIKA SPEULVEDA IMM DELIVERED DCP TBD, PT EVAL PENDING
[2024-10-10 19:47] VITALS: BP 106/57; PULSE 80; RESP 16; TEMP 37; O2SAT 91
[2024-10-10 20:13] LABS: Glucose, Whole Blood 139 mg/dL (60-115)
[2024-10-10] MEDS: Melatonin 3 MG TABLET 6 MG PO (20:25)
[2024-10-10] MEDS: Famotidine 20 MG TABLET PO (20:25)
[2024-10-11] VITALS: BP 132/60; PULSE 79; RESP 16; TEMP 36.9; O2SAT 94
[2024-10-11 03:49] VITALS: BP 126/59; PULSE 86; RESP 17; TEMP 36.6; O2SAT 100
[2024-10-11 06:52] LABS: MANUAL DIFF FLAG NO
[2024-10-11 07:04] LABS: Basophils Absolute Auto 0.1 X10*3/uL (0.0-0.2); Basophils Percent Auto 1.1 % (0-2); Eosinophils Absolute Auto 0.2 X10*3/uL (0.0-0.4); Hematocrit 25.3 % (37.0-47.0); Hemoglobin 8.6 g/dl (12.0-16.0); Imm Gran Abs Auto 0.01 X10*3/uL (0.00-0.03); Imm Gran Pct Auto 0.2 % (0.0-0.4); Lymphocytes Absolute Auto 1.5 X10*3/uL (1.2-4.9); Lymphocytes Percent Auto 32.7 % (20-40); Mean Corpuscular Hemoglobin 33.3 pg (27.0-33.0); Mean Corpuscular Volume 98.1 fL (80.0-98.0); Mean Platelet Volume 11.4 fL (9.4-12.3); Monocytes Absolute Auto 0.6 X10*3/uL (0.1-1.2); Neutrophils Absolute Auto 2.2 x10*3/uL (2.0-8.3); Platelet Count 142 X10*3/uL (160-400); Red Blood Count 2.58 X10*6/uL (4.20-5.50); Red Cell Distribution Width 14.1 % (11.0-16.0); White Blood Count 4.5 X10*3/uL (4.8-10.8)
[2024-10-11 07:09] LABS: Anion Gap 13 (12-20); Blood Urea Nitrogen 49 mg/dL (9-16); Calcium 8.1 mg/dL (8.4-10.2); Carbon Dioxide 24 mmol/L (22-29); Chloride 111 mmol/L (96-108); Creatinine Clr Calc Pharmacy 17.9; Estimated Glomerular Filt Rate 28; Glucose Random 77 mg/dL (60-115); Magnesium 1.5 mg/dL (1.6-2.6); Potassium 4.3 mmol/L (3.3-5.1); Sodium 144 mmol/L (135-145)
[2024-10-11 07:10] LABS: Hematocrit 25.7 % (37.0-47.0); Hemoglobin 8.7 g/dl (12.0-16.0); Mean Corpuscular HGB Conc 33.9 g/dl (31.0-35.0); Mean Corpuscular Hemoglobin 32.8 pg (27.0-33.0); Mean Platelet Volume 11.2 fL (9.4-12.3); Platelet Count 144 X10*3/uL (160-400); Red Blood Count 2.65 X10*6/uL (4.20-5.50); Red Cell Distribution Width 14.1 % (11.0-16.0); White Blood Count 4.6 X10*3/uL (4.8-10.8)
[2024-10-11 07:23] VITALS: BP 120/63; PULSE 79; RESP 20; TEMP 37; O2SAT 94
[2024-10-11 07:26] LABS: Glucose, Whole Blood 83 mg/dL (60-115)
[2024-10-11] MEDS: oxyCODONE HCl Immed Release 5 MG TABLET PO ×2 (07:59→16:00)
[2024-10-11] MEDS: Magnesium Oxide 400 MG TABLET PO ×2 (07:59→16:00)
[2024-10-11] MEDS: Folic Acid 1 MG TABLET PO (08:00)
[2024-10-11] MEDS: Gabapentin 300 MG CAPSULE PO ×3 (08:00→20:07)
[2024-10-11] MEDS: Famotidine 20 MG TABLET PO ×2 (08:00→20:07)
[2024-10-11] MEDS: Heparin Sodium,Porcine 5,000 UNIT/ML VIAL 5000 UNIT SUBCUT ×2 (08:00→20:07)
[2024-10-11] MEDS: Atorvastatin Calcium 40 MG TABLET PO (08:00)
[2024-10-11] MEDS: 0.9 % Sodium Chloride Flush 3 ML SYRINGE IVFLUSH ×2 (08:01→16:02)
--- NOTE | 2024-10-11 08:30 | P.PNIM_ITS ---
Subjective Subjective Date of Service: 10/11/24 Interval History: Still no appetite Physical Exam 2 Vital Signs: Vital Signs: Last Vital Signs Temp 98.6 F 10/11/24 07:23 Pulse 79 10/11/24 07:23 Resp 20 10/11/24 07:23 BP 120/63 10/11/24 07:23 Pulse Ox 94 10/11/24 07:23 O2 Del Method Nasal Cannula 10/11/24 07:23 O2 Flow Rate 2 10/11/24 07:23 BMI result Body Mass Index 28.2 Const: General: comfortable and no acute distress Resp: Effort & Inspection: normal respiratory effort Cardio: Rate: regular rate GI: Palpation (GI): Soft to palpation, not firm, nontender and no guarding Objective Data Active Medications Acetaminophen (Acetaminophen 325 Mg Tablet) 975 mg PO Q6H PRN PRN Reason: Pain, Mild 1-3,fever,headache Last Admin: 10/10/24 15:06 Dose: 975 mg Documented By: LINNEA Atorvastatin Calcium (Atorvastatin Calcium 40 Mg Tablet) 40 mg PO DAILY [facility] Last Admin: 10/11/24 08:00 Dose: 40 mg Documented By: LINNEA Calcium Carbonate (Calcium Carbonate 750 Mg Tab.Chew) 750 mg PO Q4H PRN PRN Reason: Heartburn Dextrose (Dextrose 50 % 25 Gm/50 Ml Syringe) 25 gm IVPUSH Q15M PRN; Protocol PRN Reason: per Hypoglycemia Standing Ord. Famotidine (Famotidine 20 Mg Tablet) 20 mg PO BID [facility] Last Admin: 10/11/24 08:00 Dose: 20 mg Documented By: LINNEA Folic Acid (Folic Acid 1 Mg Tablet) 1 mg PO DAILY [facility] Last Admin: 10/11/24 08:00 Dose: 1 mg Documented By: LINNEA Gabapentin (Gabapentin 300 Mg Capsule) 300 mg PO TID [facility] Last Admin: 10/11/24 08:00 Dose: 300 mg Documented By: LINNEA Glucose (Glucose Gel 15 Gm Gel..Gram.) 15 gm PO Q15M PRN; Protocol PRN Reason: per Hypoglycemia Standing Ord. Heparin Sodium (Porcine) (Heparin Sodium,Porcine 5,000 Unit/Ml Vial) 5,000 unit SUBCUT BID [facility] Last Admin: 10/11/24 08:00 Dose: 5,000 unit Documented By: LINNEA Hydromorphone HCl (Hydromorphone Hcl 0.5 Mg/0.5 Ml Syringe) 0.25 mg IVPUSH Q4H PRN; Protocol PRN Reason: Pain, Severe (Pain Scale 7-10) Last Admin: 10/10/24 05:48 Dose: 0.25 mg Documented By: GERARD Insulin Human Lispro (Insulin Lispro 100 Unit/Ml 3 Ml Vial) 0 unit SUBCUT QIDACHS [facility]; Protocol Last Admin: 10/11/24 07:50 Dose: Not Given Documented By: LINNEA Non-Admin Reason: No Insulin Coverage Magnesium Hydroxide (Milk Of Magnesia 30 Ml Oral.Susp) 30 ml PO DAILY PRN PRN Reason: Constipation Magnesium Oxide (Magnesium [facility]ide 400 Mg Tablet) [facility] Last Admin: 10/11/24 07:59 Dose: 400 mg Documented By: LINNEA Melatonin (Melatonin 3 Mg Tablet) 6 mg PO BEDTIME PRN PRN Reason: Insomnia Last Admin: 10/10/24 20:25 Dose: 6 mg Documented By: LEOLA Ondansetron HCl (Ondansetron Hcl 4 Mg/2 Ml Vial) 4 mg IVPUSH Q8H PRN PRN Reason: Nausea and Vomiting Last Admin: 10/10/24 10:18 Dose: 4 mg Documented By: LINNEA Oxycodone HCl (Oxycodone Hcl Immed Release 5 Mg Tablet) 5 mg PO Q6H PRN PRN Reason: Pain, Moderate(Pain Scale 4-6) Last Admin: 10/11/24 07:59 Dose: 5 mg Documented By: LINNEA Sodium Chloride (0.9 % Sodium Chloride Flush 3 Ml Syringe) 3 ml IVFLUSH [facility] Last Admin: 10/11/24 08:01 Dose: 3 ml Documented By: LINNEA Labs 10/11/24 06:18 10/11/24 06:18 Labs: Laboratory Results - last 24 hr 10/10/24 10/10/24 10/10/24 11:34 15:46 20:05 MCV MCH MCHC RDW Plt Count MPV Immature Gran % (Auto) Neut % (Auto) Lymph % (Auto) [place] % (Auto) Eos % (Auto) Baso % (Auto) Lymph # (Auto) [place] # (Auto) Eos # (Auto) Baso # (Auto) Abs Immat Gran (auto) Absolute Neuts (auto) Absolute Nucleated RBC Nucleated RBC % (auto) Anion Gap Estim Creat Clear Calc Estimated GFR POC Glucose 100 95 139 H Random Glucose Calcium Magnesium 10/11/24 10/11/24 10/11/24 06:18 06:18 06:18 MCV 98.1 H 97.0 MCH 33.3 H 32.8 MCHC 34.0 RDW Plt Count MPV Immature Gran % (Auto) Neut % (Auto) Lymph % (Auto) [place] % (Auto) Eos % (Auto) Baso % (Auto) Lymph # (Auto) [place] # (Auto) Eos # (Auto) Baso # (Auto) Abs Immat Gran (auto) Absolute Neuts (auto) Absolute Nucleated RBC Nucleated RBC % (auto) Anion Gap Estim Creat Clear Calc Estimated GFR POC Glucose Random Glucose Calcium Magnesium 10/11/24 10/11/24 10/11/24 06:18 06:18 06:18 MCV MCH MCHC 33.9 RDW 14.1 14.1 Plt Count 142 L 144 L MPV 11.4 Immature Gran % (Auto) Neut % (Auto) Lymph % (Auto) [place] % (Auto) Eos % (Auto) Baso % (Auto) Lymph # (Auto) [place] # (Auto) Eos # (Auto) Baso # (Auto) Abs Immat Gran (auto) Absolute Neuts (auto) Absolute Nucleated RBC Nucleated RBC % (auto) Anion Gap Estim Creat Clear Calc Estimated GFR POC Glucose Random Glucose Calcium Magnesium 10/11/24 10/11/24 10/11/24 06:18 06:18 06:18 MCV MCH MCHC RDW Plt Count MPV 11.2 Immature Gran % (Auto) 0.2 Neut % (Auto) 49.0 Lymph % (Auto) 32.7 [place] % (Auto) 13.0 H Eos % (Auto) 4.0 Baso % (Auto) 1.1 Lymph # (Auto) 1.5 [place] # (Auto) 0.6 Eos # (Auto) 0.2 Baso # (Auto) 0.1 Abs Immat Gran (auto) 0.01 Absolute Neuts (auto) 2.2 Absolute Nucleated RBC 0.000 0.000 Nucleated RBC % (auto) 0.0 0.0 Anion Gap 13 Estim Creat Clear Calc 17.9 Estimated GFR 28 POC Glucose Random Glucose 77 Calcium 8.1 L Magnesium 1.5 L 10/11/24 07:18 MCV MCH MCHC RDW Plt Count MPV Immature Gran % (Auto) Neut % (Auto) Lymph % (Auto) [place] % (Auto) Eos % (Auto) Baso % (Auto) Lymph # (Auto) [place] # (Auto) Eos # (Auto) Baso # (Auto) Abs Immat Gran (auto) Absolute Neuts (auto) Absolute Nucleated RBC Nucleated RBC % (auto) Anion Gap Estim Creat Clear Calc Estimated GFR POC Glucose 83 Random Glucose Calcium Magnesium Microbiology Microbiology Results: Microbiology 10/08/24 16:12 Blood Culture - Preliminary Blood - Venous No growth after 48 hours. 10/08/24 16:07 Blood Culture - Preliminary Blood - Venous No growth after 48 hours. Assessment and Plan (1) Hypotension: Status: Acute Plan 79F PMH CKD 3B, chronic diastolic CHF, hypertension, diabetes, COPD, remote history of osteosarcoma status post BKA presented with fatigue and weakness Weakness and fatigue due to acute kidney injury on CKD 3B due to hypotension and dehydration complicated by acute metabolic acidosis, acute hyperkalemia Hold antihypertensives and diuretics improved with bicarb Potassium and bicarb normalized Monitor labs, Nephro following acute hypoxic respiratory failure Check chest x-ray Wean O2 as tolerated Acute hypomagnesemia, hypocalcemia Replaced esophogitis pepcid gi Chronic Anemia of inflammation and CKD Pancytopenia with Borderline B12 and folate deficiency Replace Pressure ulcer Wound care Diabetes Insulin sliding scale COPD Stable DVT prophylaxis with heparin subQ DNR/DNI reason for continued hospitalization:no appetite Quality Stroke Does the patient have a stroke diagnosis?: No VTE Prior VTE?: No VTE Risk Level:: Medical - moderate - high VTE Device Contraindication: Treatment Not Indicated VTE Drug Contraindication: N/A - Med Ordered
--- NOTE | 2024-10-11 08:56 | P.CNGI_ITS ---
History of Present Illness Data of Consult Service Date: 10/11/24 Requesting physician: Segundo Costello Primary Care Provider: Jodi Sun MD HPI Reason for consult: Anorexia, esophagitis 79-year-old female with medical history of type 2 diabetes, COPD , CKD stage 3, GERD, history of BKA due to bone cancer in her teens, who presented to the hospital last week for weakness and fatigue and anorexia. Patient reports that for more than a week, she has had no appetite at all and therefore has not been eating much. She started noticing decreased urination and progressive weakness and therefore came to the emergency room. She denies any dysguesia, dysphagia, odynophagia, abdominal pain, nausea or vomiting. She also does not report early satiety, just lack of appetite. On arrival to the hospital, she was noted to have pancytopenia with severe MALLORY that has been improving urine with trace ketones. CT abdomen and pelvis 10/08 shows question of incarcerated ventral hernia, but patient without any abdominal pain and has been passing flatus and bowel movements. Also showed possible esophagitis and gastritis. She reports her last upper endoscopy was over 5 years ago done for reflux symptoms. Review of Systems 2 Review of Systems: Yes all other systems are reviewed and are negative PMFSH Past Medical History Medical History (Updated 10/11/24 @ 16:06 by Ewa Dc MD) CKD (chronic kidney disease) stage 3, GFR 30-59 ml/min Osteosarcoma Diabetes COPD (chronic obstructive pulmonary disease) HTN (hypertension) Surgical History Surgical History History of partial hysterectomy History of cholecystectomy History of tubal ligation H/O excision of ganglion cyst History of umbilical hernia repair History of repair of inguinal hernia Social History Social History Household Members: None Housing: Assisted Living Facility Do you presently have visiting nurse or other home services: No Alcohol intake: never Patient Tobacco Use Status: Never used Tobacco service: No Current occupational status: disabled Current occupation: left handed Meds Allergies Allergy/AdvReac Type Severity Reaction Status Date / Time Sulfa (Sulfonamide Allergy Mild N/V Verified 10/08/24 15:13 Antibiotics) Sulfamethoxazole Allergy Unknown vomiting Uncoded 10/08/24 15:13 Active Medications: Current Medications Acetaminophen (Acetaminophen 325 Mg Tablet) 975 mg PO Q6H PRN PRN Reason: Pain, Mild 1-3,fever,headache Last Admin: 10/10/24 15:06 Dose: 975 mg Atorvastatin Calcium (Atorvastatin Calcium 40 Mg Tablet) 40 mg PO DAILY [facility] Last Admin: 10/11/24 08:00 Dose: 40 mg Calcium Carbonate (Calcium Carbonate 750 Mg Tab.Chew) 750 mg PO Q4H PRN PRN Reason: Heartburn Dextrose (Dextrose 50 % 25 Gm/50 Ml Syringe) 25 gm IVPUSH Q15M PRN; Protocol PRN Reason: per Hypoglycemia Standing Ord. Famotidine (Famotidine 20 Mg Tablet) 20 mg PO BID [facility] Last Admin: 10/11/24 08:00 Dose: 20 mg Folic Acid (Folic Acid 1 Mg Tablet) 1 mg PO DAILY [facility] Last Admin: 10/11/24 08:00 Dose: 1 mg Gabapentin (Gabapentin 300 Mg Capsule) 300 mg PO TID [facility] Last Admin: 10/11/24 08:00 Dose: 300 mg Glucose (Glucose Gel 15 Gm Gel..Gram.) 15 gm PO Q15M PRN; Protocol PRN Reason: per Hypoglycemia Standing Ord. Heparin Sodium (Porcine) (Heparin Sodium,Porcine 5,000 Unit/Ml Vial) 5,000 unit SUBCUT BID [facility] Last Admin: 10/11/24 08:00 Dose: 5,000 unit Hydromorphone HCl (Hydromorphone Hcl 0.5 Mg/0.5 Ml Syringe) 0.25 mg IVPUSH Q4H PRN; Protocol PRN Reason: Pain, Severe (Pain Scale 7-10) Last Admin: 10/10/24 05:48 Dose: 0.25 mg Insulin Human Lispro (Insulin Lispro 100 Unit/Ml 3 Ml Vial) 0 unit SUBCUT QIDACHS [facility]; Protocol Last Admin: 10/11/24 07:50 Dose: Not Given Magnesium Hydroxide (Milk Of Magnesia 30 Ml Oral.Susp) 30 ml PO DAILY PRN PRN Reason: Constipation Magnesium Oxide ([facility] 400 Mg Tablet) [facility] Last Admin: 10/11/24 07:59 Dose: 400 mg Melatonin (Melatonin 3 Mg Tablet) 6 mg PO BEDTIME PRN PRN Reason: Insomnia Last Admin: 10/10/24 20:25 Dose: 6 mg Ondansetron HCl (Ondansetron Hcl 4 Mg/2 Ml Vial) 4 mg IVPUSH Q8H PRN PRN Reason: Nausea and Vomiting Last Admin: 10/10/24 10:18 Dose: 4 mg Oxycodone HCl (Oxycodone Hcl Immed Release 5 Mg Tablet) 5 mg PO Q6H PRN PRN Reason: Pain, Moderate(Pain Scale 4-6) Last Admin: 10/11/24 07:59 Dose: 5 mg Sodium Chloride (0.9 % Sodium Chloride Flush 3 Ml Syringe) 3 ml IVFLUSH QSHIFT [facility] Last Admin: 10/11/24 08:01 Dose: 3 ml Home Medications ?Medication ?Instructions ?Recorded ?Confirmed ?Last Taken ?Type carvedilol 25 mg tablet 25 mg PO BID 06/22/20 10/08/24 10/08/24 History cholecalciferol (vitamin D3) 50 50 mcg PO DAILY 06/22/20 10/08/24 10/08/24 History mcg (2,000 unit) capsule gabapentin 300 mg capsule 300 mg PO TID 03/31/24 10/08/24 10/08/24 History isosorbide mononitrate 30 mg 90 mg PO DAILY 03/31/24 10/08/24 10/08/24 History tablet,extended release 24 hr omeprazole 40 mg capsule,delayed 40 mg PO DAILY@0630 03/31/24 10/08/24 10/08/24 History release torsemide 20 mg tablet 40 mg PO DAILY 03/31/24 10/08/24 10/08/24 History albuterol sulfate 90 mcg/actuation 2 puff inhalation Q6H PRN 10/08/24 10/08/24 Unknown History aerosol inhaler Shortness Of Breath Or Wheezing amlodipine 10 mg tablet 10 mg PO DAILY 10/08/24 10/08/24 10/08/24 History atorvastatin 40 mg tablet 40 mg PO DAILY 10/08/24 10/08/24 10/08/24 History budesonide 160 mcg-glycopyr 9 2 inh inhalation BID 10/08/24 10/08/24 10/08/24 History mcg-formot 4.8 mcg/actuation HFA inhaler (Breztri Aerosphere) buprenorphine 20 mcg/hour weekly 1 patch topical FR 10/08/24 10/08/24 10/01/24 History transdermal patch (Butrans) empagliflozin 10 mg tablet 10 mg PO DAILY 10/08/24 10/08/24 10/08/24 History (Jardiance) hydroxyzine pamoate 25 mg capsule 25 mg PO QID 10/08/24 10/08/24 10/08/24 History lisinopril 10 mg tablet 10 mg PO BID 10/08/24 10/08/24 Unknown History Physical Exam 2 Vital Signs: Vital Signs: Last Vital Signs Temp 98.6 F 10/11/24 07:23 Pulse 79 10/11/24 07:23 Resp 20 10/11/24 07:23 BP 120/63 10/11/24 07:23 Pulse Ox 94 10/11/24 07:23 O2 Del Method Nasal Cannula 10/11/24 07:23 O2 Flow Rate 2 10/11/24 07:23 BMI result Body Mass Index 28.2 Elderly female NAD Nonicteric Abd soft, nontender, nondistended Results Labs 10/11/24 06:18 10/11/24 06:18 Labs: Short CBC 10/11/24 10/11/24 10/11/24 Range/Units 06:18 06:18 06:18 WBC 4.5 L 4.6 L (4.8-10.8) X10*3/uL Hgb 8.6 L 8.7 L (12.0-16.0) g/dl Hct 25.3 L (37.0-47.0) % Plt Count (160-400) X10*3/uL 10/11/24 10/11/24 Range/Units 06:18 06:18 WBC (4.8-10.8) X10*3/uL Hgb (12.0-16.0) g/dl Hct 25.7 L (37.0-47.0) % Plt Count 142 L 144 L (160-400) X10*3/uL BMP 10/11/24 06:18 Sodium 144 Potassium 4.3 Chloride 111 H Carbon Dioxide 24 BUN 49 H Creatinine 1.76 H Calcium 8.1 L Microbiology Microbiology Results: Microbiology 10/08/24 16:12 Blood - Venous Blood Culture - Preliminary No growth after 48 hours. 10/08/24 16:07 Blood - Venous Blood Culture - Preliminary No growth after 48 hours. Assessment and Plan (1) Esophagitis: Status: Acute (2) Anorexia: Status: Acute (3) MALLORY (acute kidney injury): Status: Acute (4) CKD stage 4 secondary to hypertension: Status: Acute Plan Unclear cause of sudden onset of loss of appetite. However, given CT findings, luminal evaluation is reasonable to rule out esophageal mass versus infiltrative gastric malignancy. Patient, however, does not wish to proceed. Did review the possible differentials and how it may help in further management. She would like some time to think about it and let us know if she would like to proceed with upper endoscopy as inpatient. EGD tentatively booked for tomorrow for now. Please keep NPO after midnight Thank you for allowing me to participate in her care. Please do not hesitate to reach out for any questions or concerns. Procedures Date of Service Date of Service: 10/11/24
[2024-10-11] MEDS: ondansetron HCL 4 MG/2 ML VIAL IVPUSH (10:34)
[2024-10-11 11:08] LABS: Glucose, Whole Blood 85 mg/dL (60-115)
[2024-10-11 11:15] VITALS: BP 122/61; PULSE 86; RESP 20; TEMP 36.8; O2SAT 98
--- NOTE | 2024-10-11 14:29 | HO.WOUND ---
Wound Consult: Initial 79yr old?female admitted to [facility] [place]09[place]24 - See progress notes and H&P for detailed history.? Wound consult placed for sacrum.? Patient agreeable to assessment and photo documentation.? Sacrum Etiology: Unstageable Pressure Injury ??Present on Admission Measurements: 1cm x 1cm x 0.2cm Wound Bed: adherent white pale slough Drainage / Odor: none Edges: ? well defined Dinorah wound: ? MASD - red pink moist tissue No Induration, Fluctuance or Warmth noted Pain: painful to touch per pt Goals of Treatment: ? Off load pressure and triad and foam dressing Recommendations: 1. Turn and Reposition every 2 hours and as needed for patient comfort.? Use pillows or wedges to support off loading positions. 2. Off Load all bony prominences with use of pillows and heel boots if needed.? Apply Preventative foams where needed. ? 3. Monitor for incontinence and moisture control, use barrier creams when needed for prevention and treatment. 4. Provide adequate and supplemental nutrition.? 5. Continue low air loss mattress. 6. When applicable maintain blood glucose levels per Providers order. Sacrum - Off Load Pressure with Q2 hr turns and use of pillows - Cleanse with PH balance spray or wipes, pat dry. ?Apply thin layer of Triad to wound bed. Do not remove all of paste between applications as this may cause further skin damage.? Cover with foam dressing to aid in off loading and protection from friction. Change every 3 days and PRN. Elevate right heel off of bed surface with pillow. May apply preventative foam dressing peel back and assess Q shift and change every 5 days. Re-consult wound care Nurse for wound deterioration or wound changes.
--- NOTE | 2024-10-11 15:13 | MHC.CM.PN ---
CM met with pt. to discuss DCP, PT rec. [facility]. Pt said she will not go to [facility]. CM discussed home PT, she said she has had that before and it did not help. CM will put referral into [facility] (provide services at [facility]) and will follow up with pt.
[2024-10-11 15:38] VITALS: BMI 28.2
--- NOTE | 2024-10-11 15:47 | MHC.CLN ---
NUTRITION CONSULT FOR DECREASED APPETITE/INTAKE. DIET=DIABETIC 2000 KCALS. PATIENT REPORTS DECREASED PO INTAKE X APPROX 3 WEEKS. CURRENT PO VARIABLE, 0-75. SKIN WITH UNSTAGEABLE AREA TO SACRUM. ADDING ENSURE MAX PROTEIN BID TO PROMOTE WOUND HEALING. SUPPLEMENT PROVIDES 300 KCALS, 60 G PROTEIN. FOLLOW FOR PO INTAKE AND WOUND HEALING. SEE CLINICAL NUTRITION ASSESSMENT 10/11/24.
[2024-10-11 16:00] VITALS: BP 126/78; PULSE 89; RESP 18; TEMP 36.9; O2SAT 90
[2024-10-11 16:28] LABS: Glucose, Whole Blood 96 mg/dL (60-115)
[2024-10-11 19:35] VITALS: BP 141/73; PULSE 84; RESP 17; TEMP 36.8
[2024-10-11] MEDS: Melatonin 3 MG TABLET 6 MG PO (20:12)
[2024-10-11 20:36] LABS: Glucose, Whole Blood 86 mg/dL (60-115)
[2024-10-12] VITALS (11 sets, daily range): BP systolic 123–154; BP diastolic 51–94; PULSE 75–86; RESP 17–20; TEMP 36.1–37.2; O2SAT 90–99
[2024-10-12 07:26] LABS: Hematocrit 25.4 % (37.0-47.0); Hemoglobin 8.6 g/dl (12.0-16.0); Mean Corpuscular HGB Conc 33.9 g/dl (31.0-35.0); Mean Corpuscular Hemoglobin 33.5 pg (27.0-33.0); Mean Corpuscular Volume 98.8 fL (80.0-98.0); Mean Platelet Volume 11.2 fL (9.4-12.3); Platelet Count 154 X10*3/uL (160-400); Red Blood Count 2.57 X10*6/uL (4.20-5.50); White Blood Count 4.4 X10*3/uL (4.8-10.8)
[2024-10-12 07:35] LABS: Glucose, Whole Blood 72 mg/dL (60-115)
[2024-10-12 07:38] LABS: Anion Gap 14 (12-20); Blood Urea Nitrogen 38 mg/dL (9-16); Calcium 8.4 mg/dL (8.4-10.2); Carbon Dioxide 26 mmol/L (22-29); Chloride 111 mmol/L (96-108); Creatinine Clr Calc Pharmacy 22.5; Estimated Glomerular Filt Rate 36; Glucose Random 75 mg/dL (60-115); Potassium 4.4 mmol/L (3.3-5.1); Sodium 147 mmol/L (135-145)
[2024-10-12 07:54] LABS: B Type Natriuretic Peptide 1648 pg/mL (<100)
[2024-10-12] MEDS: Atorvastatin Calcium 40 MG TABLET PO (08:26)
[2024-10-12] MEDS: Gabapentin 300 MG CAPSULE PO ×3 (08:26→21:58)
[2024-10-12] MEDS: Magnesium Oxide 400 MG TABLET PO ×2 (08:26→18:31)
[2024-10-12] MEDS: Famotidine 20 MG TABLET PO ×2 (08:26→21:58)
[2024-10-12] MEDS: Folic Acid 1 MG TABLET PO (08:26)
[2024-10-12] MEDS: 0.9 % Sodium Chloride Flush 3 ML SYRINGE IVFLUSH ×3 (08:26→19:07)
--- NOTE | 2024-10-12 09:44 | P.PNIM_ITS ---
Subjective Subjective Date of Service: 10/12/24 Interval History: Still no appetite Physical Exam 2 Vital Signs: Vital Signs: Last Vital Signs Temp 97.0 F 10/12/24 07:48 Pulse 75 10/12/24 07:48 Resp 18 10/12/24 07:48 BP 138/68 10/12/24 07:48 Pulse Ox 96 10/12/24 07:48 O2 Del Method Nasal Cannula 10/12/24 07:48 O2 Flow Rate 2 10/12/24 07:48 BMI result Body Mass Index 28.2 Elderly female NAD Nonicteric Abd soft, nontender, nondistended Objective Data Active Medications Acetaminophen (Acetaminophen 325 Mg Tablet) 975 mg PO Q6H PRN PRN Reason: Pain, Mild 1-3,fever,headache Last Admin: 10/10/24 15:06 Dose: 975 mg Documented By: LINNEA Atorvastatin Calcium (Atorvastatin Calcium 40 Mg Tablet) 40 mg PO DAILY [facility] Last Admin: 10/12/24 08:26 Dose: 40 mg Documented By: DOREEN Calcium Carbonate (Calcium Carbonate 750 Mg Tab.Chew) 750 mg PO Q4H PRN PRN Reason: Heartburn Dextrose (Dextrose 50 % 25 Gm/50 Ml Syringe) 25 gm IVPUSH Q15M PRN; Protocol PRN Reason: per Hypoglycemia Standing Ord. Famotidine (Famotidine 20 Mg Tablet) 20 mg PO BID [facility] Last Admin: 10/12/24 08:26 Dose: 20 mg Documented By: DOREEN Folic Acid (Folic Acid 1 Mg Tablet) 1 mg PO DAILY [facility] Last Admin: 10/12/24 08:26 Dose: 1 mg Documented By: DOREEN Gabapentin (Gabapentin 300 Mg Capsule) 300 mg PO TID [facility] Last Admin: 10/12/24 08:26 Dose: 300 mg Documented By: DOREEN Glucose (Glucose Gel 15 Gm Gel..Gram.) 15 gm PO Q15M PRN; Protocol PRN Reason: per Hypoglycemia Standing Ord. Heparin Sodium (Porcine) (Heparin Sodium,Porcine 5,000 Unit/Ml Vial) 5,000 unit SUBCUT BID [facility] Last Admin: 10/11/24 20:07 Dose: 5,000 unit Documented By: LEOLA Hydromorphone HCl (Hydromorphone Hcl 0.5 Mg/0.5 Ml Syringe) 0.25 mg IVPUSH Q4H PRN; Protocol PRN Reason: Pain, Severe (Pain Scale 7-10) Last Admin: 10/10/24 05:48 Dose: 0.25 mg Documented By: GERARD Insulin Human Lispro (Insulin Lispro 100 Unit/Ml 3 Ml Vial) 0 unit SUBCUT QIDACHS [facility]; Protocol Last Admin: 10/12/24 07:39 Dose: Not Given Documented By: DOREEN Non-Admin Reason: No Insulin Coverage Magnesium Hydroxide (Milk Of Magnesia 30 Ml Oral.Susp) 30 ml PO DAILY PRN PRN Reason: Constipation Magn[facility]ide ([facility] 400 Mg [facility]t) [facility] Last Admin: 10/12/24 08:26 Dose: 400 mg Documented By: DOREEN Melatonin (Melatonin 3 Mg Tablet) 6 mg PO BEDTIME PRN PRN Reason: Insomnia Last Admin: 10/11/24 20:12 Dose: 6 mg Documented By: LEOLA Ondansetron HCl (Ondansetron Hcl 4 Mg/2 Ml Vial) 4 mg IVPUSH Q8H PRN PRN Reason: Nausea and Vomiting Last Admin: 10/11/24 10:34 Dose: 4 mg Documented By: LINNEA Oxycodone HCl (Oxycodone Hcl Immed Release 5 Mg Tablet) 5 mg PO Q6H PRN PRN Reason: Pain, Moderate(Pain Scale 4-6) Last Admin: 10/11/24 16:00 Dose: 5 mg Documented By: LINNEA Sodium Chloride (0.9 % Sodium Chloride Flush 3 Ml [facility]) [facility] Last Admin: 10/12/24 08:26 Dose: 3 ml Documented By: DOREEN Labs 10/12/24 06:45 10/12/24 06:45 Labs: Laboratory Results - last 24 hr 10/11/24 10/11/24 10/11/24 11:05 15:56 20:26 MCV MCH MCHC RDW Plt Count MPV Absolute Nucleated RBC Nucleated RBC % (auto) Anion Gap Estim Creat Clear Calc Estimated GFR POC Glucose 85 96 86 Random Glucose Calcium B-Natriuretic Peptide 10/12/24 10/12/24 06:45 07:23 MCV 98.8 H MCH 33.5 H MCHC 33.9 RDW 14.0 Plt Count 154 L MPV 11.2 Absolute Nucleated RBC 0.000 Nucleated RBC % (auto) 0.0 Anion Gap 14 Estim Creat Clear Calc 22.5 Estimated GFR 36 POC Glucose 72 Random Glucose 75 Calcium 8.4 B-Natriuretic Peptide 1648 H Assessment and Plan (1) Hypotension: Status: Acute Plan 79F PMH CKD 3B, chronic diastolic CHF, hypertension, diabetes, COPD, remote history of osteosarcoma status post BKA presented with fatigue and weakness Weakness and fatigue due to acute kidney injury on CKD 3B due to hypotension and dehydration complicated by acute metabolic acidosis, acute hyperkalemia Hold antihypertensives and diuretics improved with bicarb Potassium and bicarb normalized Monitor labs, Nephro following much improved acute hypoxic respiratory failure cxr negative Wean O2 as tolerated Acute hypomagnesemia, hypocalcemia Replaced esophogitis pepcid plan for EGD Chronic Anemia of inflammation and CKD Pancytopenia with Borderline B12 and folate deficiency Replace Pressure ulcer Wound care Diabetes Insulin sliding scale COPD Stable DVT prophylaxis with heparin subQ DNR/DNI reason for continued hospitalization:no appetite Quality Stroke Does the patient have a stroke diagnosis?: No VTE Prior VTE?: No VTE Risk Level:: Medical - moderate - high VTE Device Contraindication: Treatment Not Indicated VTE Drug Contraindication: N/A - Med Ordered
[2024-10-12 11:16] LABS: Glucose, Whole Blood 73 mg/dL (60-115)
[2024-10-12 13:15] LABS: Glucose, Whole Blood 77 mg/dL (60-115)
--- NOTE | 2024-10-12 13:37 | HO.ANESPROP2 ---
HPI - Anesthesia Eval Consult details Narrative: 79 yo female patient for EGD PMFSH Active Problems Active Problems: All Active Problems Esophagitis (Acute) Anorexia (Acute) CKD stage 4 secondary to hypertension (Acute) Acute hyperkalemia (Acute) Metabolic acidosis (Acute) Pancytopenia (Acute) Hypocalcemia (Acute) Hyperkalemia (Acute) Acute kidney injury superimposed on CKD (Acute) Weakness (Acute) CKD (chronic kidney disease) stage 3, GFR 30-59 ml/min (Acute) Ventral hernia (Acute) Hypomagnesemia (Acute) Hypotension (Acute) MALLORY (acute kidney injury) (Acute) Fracture of proximal humerus with routine healing (Acute) Closed fracture of left proximal humerus (Acute) Greater tuberosity of humerus fracture (Acute) CAD Past Medical History Medical History CKD (chronic kidney disease) stage 3, GFR 30-59 ml/min Osteosarcoma Diabetes COPD (chronic obstructive pulmonary disease) HTN (hypertension) Family History Family history of problems with anesthesia: No Surgical History Surgical History History of partial hysterectomy History of cholecystectomy History of tubal ligation H/O excision of ganglion cyst History of umbilical hernia repair History of repair of inguinal hernia History of Problems with Anesthesia: No Social History Social History Household Members: None Housing: Assisted Living Facility Are you a primary caregiver services home to a significant other at home: No Do you presently have visiting nurse or other home services: No Alcohol intake: never Patient Tobacco Use Status: Former Tobacco user service: No Current occupational status: disabled Current occupation: left handed Meds Allergies Allergy/AdvReac Type Severity Reaction Status Date / Time Sulfa (Sulfonamide Allergy Mild N/V Verified 10/12/24 12:36 Antibiotics) Sulfamethoxazole Allergy Unknown vomiting Uncoded 10/12/24 12:36 Active Medications: Current Medications Acetaminophen (Acetaminophen 325 Mg Tablet) 975 mg PO Q6H PRN PRN Reason: Pain, Mild 1-3,fever,headache Last Admin: 10/10/24 15:06 Dose: 975 mg Atorvastatin Calcium (Atorvastatin Calcium 40 Mg Tablet) 40 mg PO DAILY ANDIE Last Admin: 10/12/24 08:26 Dose: 40 mg Calcium Carbonate (Calcium Carbonate 750 Mg Tab.Chew) 750 mg PO Q4H PRN PRN Reason: Heartburn Dextrose (Dextrose 50 % 25 Gm/50 Ml Syringe) 25 gm IVPUSH Q15M PRN; Protocol PRN Reason: per Hypoglycemia Standing Ord. Famotidine (Famotidine 20 Mg Tablet) 20 mg PO BID [facility] Last Admin: 10/12/24 08:26 Dose: 20 mg Folic Acid (Folic Acid 1 Mg Tablet) 1 mg PO DAILY [facility] Last Admin: 10/12/24 08:26 Dose: 1 mg Gabapentin (Gabapentin 300 Mg Capsule) 300 mg PO TID [facility] Last Admin: 10/12/24 08:26 Dose: 300 mg Glucose (Glucose Gel 15 Gm Gel..Gram.) 15 gm PO Q15M PRN; Protocol PRN Reason: per Hypoglycemia Standing Ord. Heparin Sodium (Porcine) (Heparin Sodium,Porcine 5,000 Unit/Ml Vial) 5,000 unit SUBCUT BID [facility] Last Admin: 10/12/24 11:05 Dose: Not Given Hydromorphone HCl (Hydromorphone Hcl 0.5 Mg/0.5 Ml Syringe) 0.25 mg IVPUSH Q4H PRN; Protocol PRN Reason: Pain, Severe (Pain Scale 7-10) Last Admin: 10/10/24 05:48 Dose: 0.25 mg Insulin Human Lispro (Insulin Lispro 100 Unit/Ml 3 Ml Vial) 0 unit SUBCUT QIDACHS [facility]; Protocol Last Admin: 10/12/24 11:44 Dose: Not Given Magnesium Hydroxide (Milk Of Magnesia 30 Ml Oral.Susp) 30 ml PO DAILY PRN PRN Reason: Constipation [facility] ([facility] 400 Mg [facility]) [facility] Admin: 10/12/24 08:26 Dose: 400 mg Melatonin (Melatonin 3 Mg Tablet) 6 mg PO BEDTIME PRN PRN Reason: Insomnia Last Admin: 10/11/24 20:12 Dose: 6 mg Ondansetron HCl (Ondansetron Hcl 4 Mg/2 Ml Vial) 4 mg IVPUSH Q8H PRN PRN Reason: Nausea and Vomiting Last Admin: 10/11/24 10:34 Dose: 4 mg Oxycodone HCl (Oxycodone Hcl Immed Release 5 Mg Tablet) 5 mg PO Q6H PRN PRN Reason: Pain, Moderate(Pain Scale 4-6) Last Admin: 10/11/24 16:00 Dose: 5 mg Sodium Chloride (0.9 % Sodium Chloride Flush 3 Ml Syringe) 3 ml IVFLUSH [facility] Last Admin: 10/12/24 08:26 Dose: 3 ml Home Medications ?Medication ?Instructions ?Recorded ?Confirmed ?Last Taken ?Type carvedilol 25 mg tablet 25 mg PO BID 06/22/20 10/08/24 10/08/24 History cholecalciferol (vitamin D3) 50 50 mcg PO DAILY 06/22/20 10/08/24 10/08/24 History mcg (2,000 unit) capsule gabapentin 300 mg capsule 300 mg PO TID 03/31/24 10/08/24 10/08/24 History isosorbide mononitrate 30 mg 90 mg PO DAILY 03/31/24 10/08/24 10/08/24 History tablet,extended release 24 hr omeprazole 40 mg capsule,delayed 40 mg PO DAILY@0630 03/31/24 10/08/24 10/08/24 History release torsemide 20 mg tablet 40 mg PO DAILY 03/31/24 10/08/24 10/08/24 History albuterol sulfate 90 mcg/actuation 2 puff inhalation Q6H PRN 10/08/24 10/08/24 Unknown History aerosol inhaler Shortness Of Breath Or Wheezing amlodipine 10 mg tablet 10 mg PO DAILY 10/08/24 10/08/24 10/08/24 History atorvastatin 40 mg tablet 40 mg PO DAILY 10/08/24 10/08/24 10/08/24 History budesonide 160 mcg-glycopyr 9 2 inh inhalation BID 10/08/24 10/08/24 10/08/24 History mcg-formot 4.8 mcg/actuation HFA inhaler (Breztri Aerosphere) buprenorphine 20 mcg/hour weekly 1 patch topical FR 10/08/24 10/08/24 10/01/24 History transdermal patch (Butrans) empagliflozin 10 mg tablet 10 mg PO DAILY 10/08/24 10/08/24 10/08/24 History (Jardiance) hydroxyzine pamoate 25 mg capsule 25 mg PO QID 10/08/24 10/08/24 10/08/24 History lisinopril 10 mg tablet 10 mg PO BID 10/08/24 10/08/24 Unknown History Exam Height,Weight and Vital Signs: Height 4 ft 7 in Weight 55 kg Last Vital Signs Temp 97.9 F 10/12/24 13:14 Pulse 77 10/12/24 13:14 Resp 18 10/12/24 13:14 BP 152/71 H 10/12/24 13:14 Pulse Ox 96 10/12/24 13:14 O2 Del Method Nasal Cannula 10/12/24 13:14 O2 Flow Rate 2 10/12/24 13:14 Pertinent Lab Results Pertinent Lab Results: Laboratory Tests 10/08/24 10/08/24 10/08/24 16:12 19:33 20:12 WBC 4.4 L RBC 2.77 L Hgb 9.1 L Hct 27.7 L MCV 100.0 H MCH 32.9 MCHC 32.9 RDW 13.7 Plt Count 154 L MPV 10.5 Immature Gran % (Auto) 0.9 H Neut % (Auto) 59.8 Lymph % (Auto) 26.6 [place] % (Auto) 10.6 Eos % (Auto) 1.4 Baso % (Auto) 0.7 Lymph # (Auto) 1.2 [place] # (Auto) 0.5 Eos # (Auto) 0.1 Baso # (Auto) 0.0 Abs Immat Gran (auto) 0.04 H Absolute Neuts (auto) 2.7 Absolute Nucleated RBC 0.030 H Nucleated RBC % (auto) 0.7 H VBG pH 7.13 L* VBG pCO2 30 VBG pO2 51 VBG HCO3 10 L VBG O2 Saturation 74.0 VBG Base Excess -17.1 Sodium 138 Potassium 5.4 H Chloride 116 H Carbon Dioxide 10 L* Anion Gap 17 BUN 83 H Creatinine 3.25 H Estim Creat Clear Calc 8.9 Estimated GFR 14 POC Glucose Random Glucose 89 Lactic Acid 0.6 Calcium 6.6 L Magnesium 0.7 L* Iron TIBC % Saturation Unsat Iron Binding Total Bilirubin 0.5 Direct Bilirubin 0.2 AST 25 ALT < 6 Alkaline Phosphatase 97 Troponin I High Sens 7.0 7.2 B-Natriuretic Peptide 721 H Total Protein 5.7 L Albumin 3.1 L Vitamin B12 Folate Urine Color Urine Appearance Urine pH Ur Specific [place] Urine Protein Urine Glucose (UA) Urine Ketones Urine Blood Urine Nitrite Ur Leukocyte Esterase Ur Random Sodium Ur Random Potassium Ur Random Chloride Influenza Type A (PCR) NEGATIVE Influenza Type B (PCR) NEGATIVE RSV RNA Qual (PCR) NEGATIVE SARS-CoV-2 RNA (RT-PCR) NEGATIVE 10/08/24 10/08/24 10/09/24 22:34 22:39 00:20 WBC RBC Hgb Hct MCV MCH MCHC RDW Plt Count MPV Immature Gran % (Auto) Neut % (Auto) Lymph % (Auto) [place] % (Auto) Eos % (Auto) Baso % (Auto) Lymph # (Auto) [place] # (Auto) Eos # (Auto) Baso # (Auto) Abs Immat Gran (auto) Absolute Neuts (auto) Absolute Nucleated RBC Nucleated RBC % (auto) VBG pH 7.24 L VBG pCO2 24 VBG pO2 79 VBG HCO3 10 L VBG O2 Saturation 97.0 VBG Base Excess -14.9 Sodium 138 Potassium 5.9 H Chloride 116 H Carbon Dioxide 10 L* Anion Gap 18 BUN 71 H Creatinine 2.80 H Estim Creat Clear Calc 10.4 Estimated GFR 16 POC Glucose Random Glucose 102 Lactic Acid Calcium 6.9 L Magnesium 1.4 L* Iron TIBC % Saturation Unsat Iron Binding Total Bilirubin Direct Bilirubin AST ALT Alkaline Phosphatase Troponin I High Sens B-Natriuretic Peptide Total Protein Albumin Vitamin B12 Folate Urine Color Yellow Urine Appearance Clear Urine pH 5.0 Ur Specific [place] 1.015 Urine Protein Trace Urine Glucose (UA) Negative Urine Ketones Trace Urine Blood Negative Urine Nitrite Negative Ur Leukocyte Esterase Negative Ur Random Sodium 36.0 Ur Random Potassium 26.1 Ur Random Chloride 43.0 Influenza Type A (PCR) Influenza Type B (PCR) RSV RNA Qual (PCR) SARS-CoV-2 RNA (RT-PCR) 10/09/24 10/09/24 10/09/24 05:48 06:05 07:05 WBC 3.2 L RBC 2.29 L Hgb 7.6 L Hct 22.8 L MCV 99.6 H MCH 33.2 H MCHC 33.3 RDW 13.8 Plt Count 132 L MPV 10.5 Immature Gran % (Auto) 0.3 Neut % (Auto) 71.7 Lymph % (Auto) 18.4 L [place] % (Auto) 8.1 Eos % (Auto) 0.9 Baso % (Auto) 0.6 Lymph # (Auto) 0.6 L [place] # (Auto) 0.3 Eos # (Auto) 0.0 Baso # (Auto) 0.0 Abs Immat Gran (auto) 0.01 Absolute Neuts (auto) 2.3 Absolute Nucleated RBC 0.000 Nucleated RBC % (auto) 0.0 VBG pH VBG pCO2 VBG pO2 VBG HCO3 VBG O2 Saturation VBG Base Excess Sodium 139 Potassium 4.6 D Chloride 113 H Carbon Dioxide 12 L Anion Gap 19 BUN 71 H Creatinine 2.72 H Estim Creat Clear Calc 10.7 Estimated GFR 17 POC Glucose 123 H Random Glucose 142 H Lactic Acid 0.4 L Calcium 7.6 L D Magnesium 2.1 Iron 64 TIBC 103 L % Saturation 62 H Unsat Iron Binding 39 Total Bilirubin Direct Bilirubin AST ALT Alkaline Phosphatase Troponin I High Sens B-Natriuretic Peptide Total Protein Albumin Vitamin B12 330 Folate 5.2 Urine Color Urine Appearance Urine pH Ur Specific [place] Urine Protein Urine Glucose (UA) Urine Ketones Urine Blood Urine Nitrite Ur Leukocyte Esterase Ur Random Sodium Ur Random Potassium Ur Random Chloride Influenza Type A (PCR) Influenza Type B (PCR) RSV RNA Qual (PCR) SARS-CoV-2 RNA (RT-PCR) 10/09/24 10/09/24 10/09/24 11:05 15:33 19:21 WBC RBC Hgb Hct MCV MCH MCHC RDW Plt Count MPV Immature Gran % (Auto) Neut % (Auto) Lymph % (Auto) [place] % (Auto) Eos % (Auto) Baso % (Auto) Lymph # (Auto) [place] # (Auto) Eos # (Auto) Baso # (Auto) Abs Immat Gran (auto) Absolute Neuts (auto) Absolute Nucleated RBC Nucleated RBC % (auto) VBG pH VBG pCO2 VBG pO2 VBG HCO3 VBG O2 Saturation VBG Base Excess Sodium Potassium Chloride Carbon Dioxide Anion Gap BUN Creatinine Estim Creat Clear Calc Estimated GFR POC Glucose 157 H 149 H 155 H Random Glucose Lactic Acid Calcium Magnesium Iron TIBC % Saturation Unsat Iron Binding Total Bilirubin Direct Bilirubin AST ALT Alkaline Phosphatase Troponin I High Sens B-Natriuretic Peptide Total Protein Albumin Vitamin B12 Folate Urine Color Urine Appearance Urine pH Ur Specific [place] Urine Protein Urine Glucose (UA) Urine Ketones Urine Blood Urine Nitrite Ur Leukocyte Esterase Ur Random Sodium Ur Random Potassium Ur Random Chloride Influenza Type A (PCR) Influenza Type B (PCR) RSV RNA Qual (PCR) SARS-CoV-2 RNA (RT-PCR) 0410/10/24 10/10/24 07:04 07:04 07:04 WBC 3.4 L 3.6 L RBC 2.42 L 2.44 L Hgb 8.0 L Hct MCV MCH MCHC RDW Plt Count MPV Immature Gran % (Auto) Neut % (Auto) Lymph % (Auto) [place] % (Auto) Eos % (Auto) Baso % (Auto) Lymph # (Auto) [place] # (Auto) Eos # (Auto) Baso # (Auto) Abs Immat Gran (auto) Absolute Neuts (auto) Absolute Nucleated RBC Nucleated RBC % (auto) VBG pH VBG pCO2 VBG pO2 VBG HCO3 VBG O2 Saturation VBG Base Excess Sodium Potassium Chloride Carbon Dioxide Anion Gap BUN Creatinine Estim Creat Clear Calc Estimated GFR POC Glucose Random Glucose Lactic Acid Calcium Magnesium Iron TIBC % Saturation Unsat Iron Binding Total Bilirubin Direct Bilirubin AST ALT Alkaline Phosphatase Troponin I High Sens B-Natriuretic Peptide Total Protein Albumin Vitamin B12 Folate Urine Color Urine Appearance Urine pH Ur Specific [place] Urine Protein Urine Glucose (UA) Urine Ketones Urine Blood Urine Nitrite Ur Leukocyte Esterase Ur Random Sodium Ur Random Potassium Ur Random Chloride Influenza Type A (PCR) Influenza Type B (PCR) RSV RNA Qual (PCR) SARS-CoV-2 RNA (RT-PCR) 10/10/24 10/10/24 10/10/24 07:04 07:04 07:04 WBC RBC Hgb 8.1 L Hct 23.4 L 23.6 L MCV 96.7 96.7 MCH 33.1 H MCHC RDW Plt Count MPV Immature Gran % (Auto) Neut % (Auto) Lymph % (Auto) [place] % (Auto) Eos % (Auto) Baso % (Auto) Lymph # (Auto) [place] # (Auto) Eos # (Auto) Baso # (Auto) Abs Immat Gran (auto) Absolute Neuts (auto) Absolute Nucleated RBC Nucleated RBC % (auto) VBG pH VBG pCO2 VBG pO2 VBG HCO3 VBG O2 Saturation VBG Base Excess Sodium Potassium Chloride Carbon Dioxide Anion Gap BUN Creatinine Estim Creat Clear Calc Estimated GFR POC Glucose Random Glucose Lactic Acid Calcium Magnesium Iron TIBC % Saturation Unsat Iron Binding Total Bilirubin Direct Bilirubin AST ALT Alkaline Phosphatase Troponin I High Sens B-Natriuretic Peptide Total Protein Albumin Vitamin B12 Folate Urine Color Urine Appearance Urine pH Ur Specific [place] Urine Protein Urine Glucose (UA) Urine Ketones Urine Blood Urine Nitrite Ur Leukocyte Esterase Ur Random Sodium Ur Random Potassium Ur Random Chloride Influenza Type A (PCR) Influenza Type B (PCR) RSV RNA Qual (PCR) SARS-CoV-2 RNA (RT-PCR) 10/10/24 10/10/24 10/10/24 07:04 07:04 07:04 WBC RBC Hgb Hct MCV MCH 33.2 H MCHC 34.2 34.3 RDW 13.7 13.9 Plt Count 136 L MPV Immature Gran % (Auto) Neut % (Auto) Lymph % (Auto) [place] % (Auto) Eos % (Auto) Baso % (Auto) Lymph # (Auto) [place] # (Auto) Eos # (Auto) Baso # (Auto) Abs Immat Gran (auto) Absolute Neuts (auto) Absolute Nucleated RBC Nucleated RBC % (auto) VBG pH VBG pCO2 VBG pO2 VBG HCO3 VBG O2 Saturation VBG Base Excess Sodium Potassium Chloride Carbon Dioxide Anion Gap BUN Creatinine Estim Creat Clear Calc Estimated GFR POC Glucose Random Glucose Lactic Acid Calcium Magnesium Iron TIBC % Saturation Unsat Iron Binding Total Bilirubin Direct Bilirubin AST ALT Alkaline Phosphatase Troponin I High Sens B-Natriuretic Peptide Total Protein Albumin Vitamin B12 Folate Urine Color Urine Appearance Urine pH Ur Specific [place] Urine Protein Urine Glucose (UA) Urine Ketones Urine Blood Urine Nitrite Ur Leukocyte Esterase Ur Random Sodium Ur Random Potassium Ur Random Chloride Influenza Type A (PCR) Influenza Type B (PCR) RSV RNA Qual (PCR) SARS-CoV-2 RNA (RT-PCR) 10/10/24 10/10/24 10/10/24 07:04 07:04 07:04 WBC RBC Hgb Hct MCV MCH MCHC RDW Plt Count 141 L MPV 11.0 11.0 Immature Gran % (Auto) 0.3 Neut % (Auto) 54.6 Lymph % (Auto) 31.9 [place] % (Auto) 8.8 Eos % (Auto) 3.8 Baso % (Auto) 0.6 Lymph # (Auto) 1.1 L [place] # (Auto) 0.3 Eos # (Auto) 0.1 Baso # (Auto) 0.0 Abs Immat Gran (auto) 0.01 Absolute Neuts (auto) 1.9 L Absolute Nucleated RBC 0.000 0.000 Nucleated RBC % (auto) 0.0 VBG pH VBG pCO2 VBG pO2 VBG HCO3 VBG O2 Saturation VBG Base Excess Sodium Potassium Chloride Carbon Dioxide Anion Gap BUN Creatinine Estim Creat Clear Calc Estimated GFR POC Glucose Random Glucose Lactic Acid Calcium Magnesium Iron TIBC % Saturation Unsat Iron Binding Total Bilirubin Direct Bilirubin AST ALT Alkaline Phosphatase Troponin I High Sens B-Natriuretic Peptide Total Protein Albumin Vitamin B12 Folate Urine Color Urine Appearance Urine pH Ur Specific [place] Urine Protein Urine Glucose (UA) Urine Ketones Urine Blood Urine Nitrite Ur Leukocyte Esterase Ur Random Sodium Ur Random Potassium Ur Random Chloride Influenza Type A (PCR) Influenza Type B (PCR) RSV RNA Qual (PCR) SARS-CoV-2 RNA (RT-PCR) 10/10/24 10/10/24 10/10/24 07:04 07:16 11:34 WBC RBC Hgb Hct MCV MCH MCHC RDW Plt Count MPV Immature Gran % (Auto) Neut % (Auto) Lymph % (Auto) [place] % (Auto) Eos % (Auto) Baso % (Auto) Lymph # (Auto) [place] # (Auto) Eos # (Auto) Baso # (Auto) Abs Immat Gran (auto) Absolute Neuts (auto) Absolute Nucleated RBC Nucleated RBC % (auto) 0.0 VBG pH VBG pCO2 VBG pO2 VBG HCO3 VBG O2 Saturation VBG Base Excess Sodium 144 Potassium 3.9 Chloride 109 H Carbon Dioxide 25 Anion Gap 14 BUN 57 H Creatinine 2.27 H Estim Creat Clear Calc 13.9 Estimated GFR 21 POC Glucose 88 100 Random Glucose 85 Lactic Acid Calcium 7.9 L Magnesium 1.6 Iron TIBC % Saturation Unsat Iron Binding Total Bilirubin 0.6 Direct Bilirubin 0.3 AST 45 H ALT 12 Alkaline Phosphatase 79 Troponin I High Sens B-Natriuretic Peptide Total Protein 5.4 L Albumin 3.5 Vitamin B12 Folate Urine Color Urine Appearance Urine pH Ur Specific [place] Urine Protein Urine Glucose (UA) Urine Ketones Urine Blood Urine Nitrite Ur Leukocyte Esterase Ur Random Sodium Ur Random Potassium Ur Random Chloride Influenza Type A (PCR) Influenza Type B (PCR) RSV RNA Qual (PCR) SARS-CoV-2 RNA (RT-PCR) 10/10/24 10/10/24 10/11/24 15:46 20:05 06:18 WBC 4.5 L RBC Hgb Hct MCV MCH MCHC RDW Plt Count MPV Immature Gran % (Auto) Neut % (Auto) Lymph % (Auto) [place] % (Auto) Eos % (Auto) Baso % (Auto) Lymph # (Auto) [place] # (Auto) Eos # (Auto) Baso # (Auto) Abs Immat Gran (auto) Absolute Neuts (auto) Absolute Nucleated RBC Nucleated RBC % (auto) VBG pH VBG pCO2 VBG pO2 VBG HCO3 VBG O2 Saturation VBG Base Excess Sodium Potassium Chloride Carbon Dioxide Anion Gap BUN Creatinine Estim Creat Clear Calc Estimated GFR POC Glucose 95 139 H Random Glucose Lactic Acid Calcium Magnesium Iron TIBC % Saturation Unsat Iron Binding Total Bilirubin Direct Bilirubin AST ALT Alkaline Phosphatase Troponin I High Sens B-Natriuretic Peptide Total Protein Albumin Vitamin B12 Folate Urine Color Urine Appearance Urine pH Ur Specific [place] Urine Protein Urine Glucose (UA) Urine Ketones Urine Blood Urine Nitrite Ur Leukocyte Esterase Ur Random Sodium Ur Random Potassium Ur Random Chloride Influenza Type A (PCR) Influenza Type B (PCR) RSV RNA Qual (PCR) SARS-CoV-2 RNA (RT-PCR) 10/11/24 10/11/24 10/11/24 06:18 06:18 06:18 WBC 4.6 L RBC 2.58 L 2.65 L Hgb 8.6 L 8.7 L Hct 25.3 L MCV MCH MCHC RDW Plt Count MPV Immature Gran % (Auto) Neut % (Auto) Lymph % (Auto) [place] % (Auto) Eos % (Auto) Baso % (Auto) Lymph # (Auto) [place] # (Auto) Eos # (Auto) Baso # (Auto) Abs Immat Gran (auto) Absolute Neuts (auto) Absolute Nucleated RBC Nucleated RBC % (auto) VBG pH VBG pCO2 VBG pO2 VBG HCO3 VBG O2 Saturation VBG Base Excess Sodium Potassium Chloride Carbon Dioxide Anion Gap BUN Creatinine Estim Creat Clear Calc Estimated GFR POC Glucose Random Glucose Lactic Acid Calcium Magnesium Iron TIBC % Saturation Unsat Iron Binding Total Bilirubin Direct Bilirubin AST ALT Alkaline Phosphatase Troponin I High Sens B-Natriuretic Peptide Total Protein Albumin Vitamin B12 Folate Urine Color Urine Appearance Urine pH Ur Specific [place] Urine Protein Urine Glucose (UA) Urine Ketones Urine Blood Urine Nitrite Ur Leukocyte Esterase Ur Random Sodium Ur Random Potassium Ur Random Chloride Influenza Type A (PCR) Influenza Type B (PCR) RSV RNA Qual (PCR) SARS-CoV-2 RNA (RT-PCR) 10/11/24 10/11/24 10/11/24 06:18 06:18 06:18 WBC RBC Hgb Hct 25.7 L MCV 98.1 H 97.0 MCH 33.3 H 32.8 MCHC 34.0 RDW Plt Count MPV Immature Gran % (Auto) Neut % (Auto) Lymph % (Auto) [place] % (Auto) Eos % (Auto) Baso % (Auto) Lymph # (Auto) [place] # (Auto) Eos # (Auto) Baso # (Auto) Abs Immat Gran (auto) Absolute Neuts (auto) Absolute Nucleated RBC Nucleated RBC % (auto) VBG pH VBG pCO2 VBG pO2 VBG HCO3 VBG O2 Saturation VBG Base Excess Sodium Potassium Chloride Carbon Dioxide Anion Gap BUN Creatinine Estim Creat Clear Calc Estimated GFR POC Glucose Random Glucose Lactic Acid Calcium Magnesium Iron TIBC % Saturation Unsat Iron Binding Total Bilirubin Direct Bilirubin AST ALT Alkaline Phosphatase Troponin I High Sens B-Natriuretic Peptide Total Protein Albumin Vitamin B12 Folate Urine Color Urine Appearance Urine pH Ur Specific [place] Urine Protein Urine Glucose (UA) Urine Ketones Urine Blood Urine Nitrite Ur Leukocyte Esterase Ur Random Sodium Ur Random Potassium Ur Random Chloride Influenza Type A (PCR) Influenza Type B (PCR) RSV RNA Qual (PCR) SARS-CoV-2 RNA (RT-PCR) 10/11/24 10/11/24 10/11/24 06:18 06:18 06:18 WBC RBC Hgb Hct MCV MCH MCHC 33.9 RDW 14.1 14.1 Plt Count 142 L 144 L MPV 11.4 Immature Gran % (Auto) Neut % (Auto) Lymph % (Auto) [place] % (Auto) Eos % (Auto) Baso % (Auto) Lymph # (Auto) [place] # (Auto) Eos # (Auto) Baso # (Auto) Abs Immat Gran (auto) Absolute Neuts (auto) Absolute Nucleated RBC Nucleated RBC % (auto) VBG pH VBG pCO2 VBG pO2 VBG HCO3 VBG O2 Saturation VBG Base Excess Sodium Potassium Chloride Carbon Dioxide Anion Gap BUN Creatinine Estim Creat Clear Calc Estimated GFR POC Glucose Random Glucose Lactic Acid Calcium Magnesium Iron TIBC % Saturation Unsat Iron Binding Total Bilirubin Direct Bilirubin AST ALT Alkaline Phosphatase Troponin I High Sens B-Natriuretic Peptide Total Protein Albumin Vitamin B12 Folate Urine Color Urine Appearance Urine pH Ur Specific [place] Urine Protein Urine Glucose (UA) Urine Ketones Urine Blood Urine Nitrite Ur Leukocyte Esterase Ur Random Sodium Ur Random Potassium Ur Random Chloride Influenza Type A (PCR) Influenza Type B (PCR) RSV RNA Qual (PCR) SARS-CoV-2 RNA (RT-PCR) 10/11/24 10/11/24 10/11/24 06:18 06:18 06:18 WBC RBC Hgb Hct MCV MCH MCHC RDW Plt Count MPV 11.2 Immature Gran % (Auto) 0.2 Neut % (Auto) 49.0 Lymph % (Auto) 32.7 [place] % (Auto) 13.0 H Eos % (Auto) 4.0 Baso % (Auto) 1.1 Lymph # (Auto) 1.5 [place] # (Auto) 0.6 Eos # (Auto) 0.2 Baso # (Auto) 0.1 Abs Immat Gran (auto) 0.01 Absolute Neuts (auto) 2.2 Absolute Nucleated RBC 0.000 0.000 Nucleated RBC % (auto) 0.0 0.0 VBG pH VBG pCO2 VBG pO2 VBG HCO3 VBG O2 Saturation VBG Base Excess Sodium 144 Potassium 4.3 Chloride 111 H Carbon Dioxide 24 Anion Gap 13 BUN 49 H Creatinine 1.76 H Estim Creat Clear Calc 17.9 Estimated GFR 28 POC Glucose Random Glucose 77 Lactic Acid Calcium 8.1 L Magnesium 1.5 L Iron TIBC % Saturation Unsat Iron Binding Total Bilirubin Direct Bilirubin AST ALT Alkaline Phosphatase Troponin I High Sens B-Natriuretic Peptide Total Protein Albumin Vitamin B12 Folate Urine Color Urine Appearance Urine pH Ur Specific [place] Urine Protein Urine Glucose (UA) Urine Ketones Urine Blood Urine Nitrite Ur Leukocyte Esterase Ur Random Sodium Ur Random Potassium Ur Random Chloride Influenza Type A (PCR) Influenza Type B (PCR) RSV RNA Qual (PCR) SARS-CoV-2 RNA (RT-PCR) 10/11/24 10/11/24 10/11/24 07:18 11:05 15:56 WBC RBC Hgb Hct MCV MCH MCHC RDW Plt Count MPV Immature Gran % (Auto) Neut % (Auto) Lymph % (Auto) [place] % (Auto) Eos % (Auto) Baso % (Auto) Lymph # (Auto) [place] # (Auto) Eos # (Auto) Baso # (Auto) Abs Immat Gran (auto) Absolute Neuts (auto) Absolute Nucleated RBC Nucleated RBC % (auto) VBG pH VBG pCO2 VBG pO2 VBG HCO3 VBG O2 Saturation VBG Base Excess Sodium Potassium Chloride Carbon Dioxide Anion Gap BUN Creatinine Estim Creat Clear Calc Estimated GFR POC Glucose 83 85 96 Random Glucose Lactic Acid Calcium Magnesium Iron TIBC % Saturation Unsat Iron Binding Total Bilirubin Direct Bilirubin AST ALT Alkaline Phosphatase Troponin I High Sens B-Natriuretic Peptide Total Protein Albumin Vitamin B12 Folate Urine Color Urine Appearance Urine pH Ur Specific [place] Urine Protein Urine Glucose (UA) Urine Ketones Urine Blood Urine Nitrite Ur Leukocyte Esterase Ur Random Sodium Ur Random Potassium Ur Random Chloride Influenza Type A (PCR) Influenza Type B (PCR) RSV RNA Qual (PCR) SARS-CoV-2 RNA (RT-PCR) 10/11/24 10/12/24 10/12/24 20:26 06:45 07:23 WBC 4.4 L RBC 2.57 L Hgb 8.6 L Hct 25.4 L MCV 98.8 H MCH 33.5 H MCHC 33.9 RDW 14.0 Plt Count 154 L MPV 11.2 Immature Gran % (Auto) Neut % (Auto) Lymph % (Auto) [place] % (Auto) Eos % (Auto) Baso % (Auto) Lymph # (Auto) [place] # (Auto) Eos # (Auto) Baso # (Auto) Abs Immat Gran (auto) Absolute Neuts (auto) Absolute Nucleated RBC 0.000 Nucleated RBC % (auto) 0.0 VBG pH VBG pCO2 VBG pO2 VBG HCO3 VBG O2 Saturation VBG Base Excess Sodium 147 H Potassium 4.4 Chloride 111 H Carbon Dioxide 26 Anion Gap 14 BUN 38 H Creatinine 1.40 Estim Creat Clear Calc 22.5 Estimated GFR 36 POC Glucose 86 72 Random Glucose 75 Lactic Acid Calcium 8.4 Magnesium Iron TIBC % Saturation Unsat Iron Binding Total Bilirubin Direct Bilirubin AST ALT Alkaline Phosphatase Troponin I High Sens B-Natriuretic Peptide 1648 H Total Protein Albumin Vitamin B12 Folate Urine Color Urine Appearance Urine pH Ur Specific [place] Urine Protein Urine Glucose (UA) Urine Ketones Urine Blood Urine Nitrite Ur Leukocyte Esterase Ur Random Sodium Ur Random Potassium Ur Random Chloride Influenza Type A (PCR) Influenza Type B (PCR) RSV RNA Qual (PCR) SARS-CoV-2 RNA (RT-PCR) 10/12/24 10/12/24 11:06 13:10 WBC RBC Hgb Hct MCV MCH MCHC RDW Plt Count MPV Immature Gran % (Auto) Neut % (Auto) Lymph % (Auto) [place] % (Auto) Eos % (Auto) Baso % (Auto) Lymph # (Auto) [place] # (Auto) Eos # (Auto) Baso # (Auto) Abs Immat Gran (auto) Absolute Neuts (auto) Absolute Nucleated RBC Nucleated RBC % (auto) VBG pH VBG pCO2 VBG pO2 VBG HCO3 VBG O2 Saturation VBG Base Excess Sodium Potassium Chloride Carbon Dioxide Anion Gap BUN Creatinine Estim Creat Clear Calc Estimated GFR POC Glucose 73 77 Random Glucose Lactic Acid Calcium Magnesium Iron TIBC % Saturation Unsat Iron Binding Total Bilirubin Direct Bilirubin AST ALT Alkaline Phosphatase Troponin I High Sens B-Natriuretic Peptide Total Protein Albumin Vitamin B12 Folate Urine Color Urine Appearance Urine pH Ur Specific [place] Urine Protein Urine Glucose (UA) Urine Ketones Urine Blood Urine Nitrite Ur Leukocyte Esterase Ur Random Sodium Ur Random Potassium Ur Random Chloride Influenza Type A (PCR) Influenza Type B (PCR) RSV RNA Qual (PCR) SARS-CoV-2 RNA (RT-PCR) Airway Mallampati Class: II TM Dist: >3cm Neck ROM: Full Loose/Missing/Broken Teeth: Yes (Edentulous) Heart: RRR ? murmur Lungs: CTAB Assessment and Plan Assessment Anesthesia Assessment: Anesthesia Plan Discussed and Chart Reviewed Final Anesthetic Review Family History of Problems with Anesthesia: No History of Problems with Anesthesia: No NPO: Yes ASA Class: III Final Preanesthetic Review: No Changes in Pt Med Stat, Meds/Allgs Chart Reviewed, Consent Obtained/Reviewed and Anes Risks/Benef Reviewed Patient Risk: Intermediate Procedure Risk: Low Assessment/Block/Sedation in SS: Assess/Block/Sedation-SS Anesthetic Plan Anesthetic Plan: TIVA Disposition: Standard PACU
[2024-10-12] MEDS: Lactated Ringers 1,000 ML 50 ML IVCONT (14:28)
--- NOTE | 2024-10-12 14:43 | MHC.SHP ---
Pre-Procedural Eval Section A - 24 Hr Update-Section A only Date of Service: 10/12/24 The patient is an INPATIENT: Yes The patient has been examined within 24 hours of the surgical procedure. The History & Physical has been completed within 30 days and I have reviewed it.: Yes Section B - Complete if H&P > 30 days Chief Complaint: weakness Allergies: Allergies Allergy/AdvReac Type Severity Reaction Status Date / Time Sulfa (Sulfonamide Allergy Mild N/V Verified 10/12/24 12:36 Antibiotics) Sulfamethoxazole Allergy Unknown vomiting Uncoded 10/12/24 12:36 Plan Diagnosis/Plan: Unchanged I have reviewed the history and physical and performed a pertinent physical examination on my patient. No changes have occurred unless specified. Time Spent With Patient Time: Total time managing care of this patient today ____ minutes.
--- NOTE | 2024-10-12 14:51 | PC.NURSE ---
Patient states that she is not DNR/DNI. No paperwork scanned in to patient's record and no documentation in chart from assisted living facility. anesthesia aware.
--- NOTE | 2024-10-12 15:36 | P.OP_ITS ---
Operative Note Operative Note Date of Service: 10/12/24 Narrative: Procedure: Esophagogastroduodenoscopy Endoscopist: Ewa Dc MD Indication: Nausea, loss of appetite Anesthesia Provider: Dr Joann Denny Anesthesia Type: MAC ?? EGD Procedure:?? The procedure, indications, preparation and potential complications were reviewed with the patient, who indicated understanding and gave written informed consent to proceed. A physical exam was performed. The endoscope was introduced through the mouth, and advanced to the second part of duodenum. The mucosa was carefully examined on slow withdrawal of the endoscope. The patient tolerated the procedure well. There were no immediate complications.? ? EGD Findings:? * Esophagus:? Normal mucosa noted in the entire esophagus. The Z line was at 35 cm displaced by a hiatal hernia with the hiatus at 35 cm. * Stomach:? Fundus and body had edema and lumpy bumpy appearance but remaining mucosa appeared endoscopically normal. Cold forceps gastric biopsies were taken for histology. Retroflexion was performed in the cardia that showed Hill grade 2 hiatal hernia. * Duodenum:? Normal mucosa was noted in the whole of the examined duodenum. ? EGD Impressions:? * Normal esophagus * Gastritis (biopsy) * Normal duodenum ?? Recommendations:?? * Follow biopsy results * Avoid NSAIDs. * Consider appetite stimulants Above has been reviewed with the patient and her daughter over the phone.
[2024-10-12] MEDS: oxyCODONE HCl Immed Release 5 MG TABLET PO (18:35)
[2024-10-12 18:36] LABS: Glucose, Whole Blood 70 mg/dL (60-115)
[2024-10-12] MEDS: ondansetron HCL 4 MG/2 ML VIAL IVPUSH (19:06)
[2024-10-12 20:32] LABS: Glucose, Whole Blood 110 mg/dL (60-115)
[2024-10-12] MEDS: Heparin Sodium,Porcine 5,000 UNIT/ML VIAL 5000 UNIT SUBCUT (21:58)
[2024-10-13] VITALS (9 sets, daily range): BP systolic 137–155; BP diastolic 64–80; PULSE 71–86; RESP 16–22; TEMP 36.4–37.2; O2SAT 91–98
--- NOTE | 2024-10-13 06:21 | P.PNNP_ITS ---
Subjective Subjective Date of Service: 10/11/24 Interval history: seen and examined,events noted Physical Exam 2 Vital Signs: Vital Signs: Last Vital Signs Temp 98.5 F 10/13/24 03:08 Pulse 86 10/13/24 03:08 Resp 18 10/13/24 03:08 BP 142/70 H 10/13/24 03:08 Pulse Ox 95 10/13/24 03:08 O2 Del Method Nasal Cannula 10/13/24 03:08 O2 Flow Rate 2 10/13/24 03:08 BMI result Body Mass Index 28.2 Const: General: cooperative, healthy appearing, comfortable and no acute distress; No confusion Orientation/consciousness: patient oriented x3 and No confusion Limitations: no limitations and No language barrier HEENT: Head: Yes normal to inspection and Yes atraumatic Ears: hearing grossly normal bilaterally General nose exam: Normal external nose present Face and sinus: Yes normal facial exam Eyes: General: appearance normal, both eyes and all related structures EOM: EOMs intact bilaterally Direct Ophthalmoscopy: No photophobia Neck: Neck: Yes normal visual inspection, Yes no lymphadenopathy and Yes no meningeal signs Resp: Effort & Inspection: normal respiratory effort and no respiratory distress Auscultation: clear to auscultation bilaterally, no crackles and no wheezes Cardio: Rate: regular rate Rhythm: regular rhythm Heart sounds: S1 normal heart sound present and S2 normal heart sound present GI: Other: vague small hernia on upper abdomen at midline, not tender Inspection: Yes normal to inspection Palpation (GI): Soft to palpation, not firm, nontender, no guarding and not rigid : General: Yes no CVA tenderness Back/Spine/Pelvis: Back: no CVA tenderness Skin: Rashes: no rashes Wounds: no wounds Neuro: General: patient oriented x3, gait normal, tone normal, moves all extremities, no meningeal signs, no focal motor deficits, CN's II-XI intact bilaterally and No confusion Cranial nerves: Yes CN's II-XII intact bilaterally Cognition (Neuro): normal cognition Speech: No Abnormal speech present Motor exam (neuro): 5/5 motor strength present throughout and no tremor noted Extrem: Other: LLE BKA 1-2+ RLE pitting edema Objective Data Labs 10/12/24 06:45 10/12/24 06:45 Labs: Laboratory Results - last 24 hr 10/12/24 10/12/24 10/12/24 06:45 07:23 11:06 WBC 4.4 L RBC 2.57 L Hgb 8.6 L Hct 25.4 L MCV 98.8 H MCH 33.5 H MCHC 33.9 RDW 14.0 Plt Count 154 L MPV 11.2 Absolute Nucleated RBC 0.000 Nucleated RBC % (auto) 0.0 Sodium 147 H Potassium 4.4 Chloride 111 H Carbon Dioxide 26 Anion Gap 14 BUN 38 H Creatinine 1.40 Estim Creat Clear Calc 22.5 Estimated GFR 36 POC Glucose 72 73 Random Glucose 75 Calcium 8.4 B-Natriuretic Peptide 1648 H 10/12/24 10/12/24 10/12/24 13:10 18:30 20:26 WBC RBC Hgb Hct MCV MCH MCHC RDW Plt Count MPV Absolute Nucleated RBC Nucleated RBC % (auto) Sodium Potassium Chloride Carbon Dioxide Anion Gap BUN Creatinine Estim Creat Clear Calc Estimated GFR POC Glucose 77 70 110 Random Glucose Calcium B-Natriuretic Peptide Microbiology Microbiology Results: Microbiology 10/08/24 16:12 Blood - Venous Blood Culture - Preliminary No growth after 48 hours. 10/08/24 16:07 Blood - Venous Blood Culture - Preliminary No growth after 48 hours. Procedures Date of Service Date of Service: 10/13/24 Assessment & Plan Assessment and plan (1) Acute kidney injury superimposed on CKD: Status: Acute (2) CKD stage 4 secondary to hypertension: Status: Acute Plan Cathy is a 77-year-old female with past medical history significant for diabetes, hypertension, COPD, left BKA , hypertensive emergency, acute kidney injury and HFpef Impression: 1. acute kidney injury on CKD stage 4. BL cr of 2- now with cr of 3.25---> 2.8 --> 1.76 off diuretics and w IVF 2. 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 h/o Uncontrolled hypertension- 4. Acute on chronic metabolic acidosis: resolved REC switch IVF NaHCO3--> LR avoid nephrotoxins p Time Spent With Patient Time: Total time managing care of this patient today ____ minutes. Progress Note: Quality Stroke Does the patient have a stroke diagnosis?: No
[2024-10-13 06:40] LABS: Hematocrit 25.9 % (37.0-47.0); Hemoglobin 8.6 g/dl (12.0-16.0); Mean Corpuscular HGB Conc 33.2 g/dl (31.0-35.0); Mean Corpuscular Hemoglobin 32.8 pg (27.0-33.0); Mean Corpuscular Volume 98.9 fL (80.0-98.0); Mean Platelet Volume 10.8 fL (9.4-12.3); Platelet Count 154 X10*3/uL (160-400); Red Blood Count 2.62 X10*6/uL (4.20-5.50); Red Cell Distribution Width 13.6 % (11.0-16.0); White Blood Count 5.8 X10*3/uL (4.8-10.8)
[2024-10-13 06:55] LABS: Anion Gap 15 (12-20); Blood Urea Nitrogen 32 mg/dL (9-16); Calcium 8.6 mg/dL (8.4-10.2); Carbon Dioxide 25 mmol/L (22-29); Chloride 108 mmol/L (96-108); Estimated Glomerular Filt Rate 43; Glucose Random 92 mg/dL (60-115); Magnesium 1.6 mg/dL (1.6-2.6); Potassium 4.8 mmol/L (3.3-5.1); Sodium 143 mmol/L (135-145)
[2024-10-13 07:08] LABS: Glucose, Whole Blood 91 mg/dL (60-115)
--- NOTE | 2024-10-13 08:59 | HO.POSTANES ---
Post Anesthesia Evaluation Post Anesthesia Evaluation Date of Service: 10/13/24 Vital Signs: Vital Signs Temp Pulse Resp BP Pulse Ox O2 Del Method O2 Flow Rate 10/13/24 07:08 98.9 F 86 20 155/73 H 95 Nasal Cannula 2 10/13/24 03:08 98.5 F 86 18 142/70 H 95 Nasal Cannula 2 10/12/24 23:37 98.5 F 86 18 142/68 H 97 Nasal Cannula 2 Anesthesia: Monitored Mental Status: Awake Pain Control: Satisfactory Nausea/Vomiting: None Hydration: Adequate Anesthesia-Related Issues: No Anes. Related Issues
[2024-10-13] MEDS: Atorvastatin Calcium 40 MG TABLET PO (09:48)
[2024-10-13] MEDS: oxyCODONE HCl Immed Release 5 MG TABLET PO ×3 (09:48→21:20)
[2024-10-13] MEDS: Folic Acid 1 MG TABLET PO (09:48)
[2024-10-13] MEDS: Magnesium Oxide 400 MG TABLET PO ×2 (09:49→16:57)
[2024-10-13] MEDS: 0.9 % Sodium Chloride Flush 3 ML SYRINGE IVFLUSH ×3 (09:49→23:54)
[2024-10-13] MEDS: Gabapentin 300 MG CAPSULE PO ×3 (09:49→21:21)
[2024-10-13] MEDS: Heparin Sodium,Porcine 5,000 UNIT/ML VIAL 5000 UNIT SUBCUT ×2 (09:49→21:21)
[2024-10-13] MEDS: Famotidine 20 MG TABLET PO ×2 (09:49→21:21)
[2024-10-13] MEDS: Albuterol/Iprat 2.5/0.5MG 3 ML AMPUL.NEB INHALE ×3 (09:54→20:29)
--- NOTE | 2024-10-13 11:14 | HO.PM.IMPN ---
Subjective Subjective Date of Service: 10/13/24 Interval History: Follow up MALLORY, hypotension, poor appetite, COPD Feeling wheezy today Complaints of generalized body pain and neck pain Physical Exam Vital Signs: Vital Signs: Last Vital Signs Temp 98.8 F 10/13/24 10:59 Pulse 83 10/13/24 10:59 Resp 20 10/13/24 10:59 BP 142/71 H 10/13/24 10:59 Pulse Ox 97 10/13/24 10:59 O2 Del Method Nasal Cannula 10/13/24 10:59 O2 Flow Rate 2 10/13/24 10:59 BMI result Body Mass Index 28.2 Appearing in no acute distress lung sounds exp wheezing heart regular rate rhythm, clear S1, S2 positive bowel sounds, abdomen is soft, nontender neuro patient is alert x3, no focal deficits Objective Data Active Medications Acetaminophen (Acetaminophen 325 Mg Tablet) 975 mg PO Q6H PRN PRN Reason: Pain, Mild 1-3,fever,headache Last Admin: 10/10/24 15:06 Dose: 975 mg Documented By: LINNEA Albuterol/Ipratropium (Albuterol/Iprat 2.5/0.5mg 3 Ml Ampul.Neb) 3 ml INHALE Q4H PRN PRN Reason: Wheezing Last Admin: 10/13/24 09:54 Dose: 3 ml Documented By: ROSE Atorvastatin Calcium (Atorvastatin Calcium 40 Mg Tablet) 40 mg PO DAILY [facility] Last Admin: 10/13/24 09:48 Dose: 40 mg Documented By: TARA Calcium Carbonate (Calcium Carbonate 750 Mg Tab.Chew) 750 mg PO Q4H PRN PRN Reason: Heartburn Dextrose (Dextrose 50 % 25 Gm/50 Ml Syringe) 25 gm IVPUSH Q15M PRN; Protocol PRN Reason: per Hypoglycemia Standing Ord. Famotidine (Famotidine 20 Mg Tablet) 20 mg PO BID [facility] Last Admin: 10/13/24 09:49 Dose: 20 mg Documented By: TARA Folic Acid (Folic Acid 1 Mg Tablet) 1 mg PO DAILY [facility] Last Admin: 10/13/24 09:48 Dose: 1 mg Documented By: TARA Gabapentin (Gabapentin 300 Mg Capsule) 300 mg PO TID [facility] Last Admin: 10/13/24 09:49 Dose: 300 mg Documented By: TARA Glucose (Glucose Gel 15 Gm Gel..Gram.) 15 gm PO Q15M PRN; Protocol PRN Reason: per Hypoglycemia Standing Ord. Heparin Sodium (Porcine) (Heparin Sodium,Porcine 5,000 Unit/Ml Vial) 5,000 unit SUBCUT BID [facility] Last Admin: 10/13/24 09:49 Dose: 5,000 unit Documented By: TARA Hydromorphone HCl (Hydromorphone Hcl 0.5 Mg/0.5 Ml Syringe) 0.25 mg IVPUSH Q4H PRN; Protocol PRN Reason: Pain, Severe (Pain Scale 7-10) Last Admin: 10/10/24 05:48 Dose: 0.25 mg Documented By: GERARD Lactated Ringer's (Lr) 1,000 mls @ 50 mls/hr IVCONT .Q20H [facility] Last Admin: 10/12/24 14:28 Dose: 50 mls/hr Documented By: CHELITA Insulin Human Lispro (Insulin Lispro 100 Unit/Ml 3 Ml Vial) 0 unit SUBCUT QIDACHS [facility]; Protocol Last Admin: 10/13/24 07:09 Dose: Not Given Documented By: TARA Non-Admin Reason: No Insulin Coverage Magnesium Hydroxide (Milk Of Magnesia 30 Ml Oral.Susp) 30 ml PO DAILY PRN PRN Reason: Constipation Magnesium Oxide (Magnesium Oxide 400 Mg Tablet) [facility] Last Admin: 10/13/24 09:49 Dose: 400 mg Documented By: TARA Melatonin (Melatonin 3 Mg Tablet) 6 mg PO BEDTIME PRN PRN Reason: Insomnia Last Admin: 10/11/24 20:12 Dose: 6 mg Documented By: LEOLA Ondansetron HCl (Ondansetron Hcl 4 Mg/2 Ml Vial) 4 mg IVPUSH Q8H PRN PRN Reason: Nausea and Vomiting Last Admin: 10/12/24 19:06 Dose: 4 mg Documented By: LEOLA Oxycodone HCl (Oxycodone Hcl Immed Release 5 Mg Tablet) 5 mg PO Q6H PRN PRN Reason: Pain, Moderate(Pain Scale 4-6) Last Admin: 10/13/24 09:48 Dose: 5 mg Documented By: TARA Sodium Chloride (0.9 % Sodium Chloride Flush 3 Ml Syringe) [facility] Last Admin: 10/13/24 09:49 Dose: 3 ml Documented By: KAYLEYSCMANPREET Labs 10/13/24 06:15 10/13/24 06:15 Labs: Laboratory Results - last 24 hr 10/12/24 10/12/24 10/12/24 11:06 13:10 18:30 MCV MCH MCHC RDW Plt Count MPV Absolute Nucleated RBC Nucleated RBC % (auto) Anion Gap Estim Creat Clear Calc Estimated GFR POC Glucose 73 77 70 Random Glucose Calcium Magnesium 10/12/24 10/13/24 10/13/24 20:26 06:15 06:51 MCV 98.9 H MCH 32.8 MCHC 33.2 RDW 13.6 Plt Count 154 L MPV 10.8 Absolute Nucleated RBC 0.000 Nucleated RBC % (auto) 0.0 Anion Gap 15 Estim Creat Clear Calc 26.0 Estimated GFR 43 POC Glucose 110 91 Random Glucose 92 Calcium 8.6 Magnesium 1.6 Assessment and Plan (1) MALLORY (acute kidney injury): Status: Acute Plan 79 year old H CKD 3B, chronic diastolic CHF, hypertension, diabetes, COPD, remote history of osteosarcoma status post BKA presented with fatigue and weakness Acute hypoxic respiratory failure likely secondary to COPD exacerbation Repeat chest x-ray pending Start IV Solu-Medrol, scheduled DuoNebs Supplemental oxygen to keep oxygen saturation greater than 91% Weakness and fatigue with diffuse body pain Multifactorial due to hypotension, MALLORY Warm compress for neck pain Encourage out of bed to chair Supportive care Hypertension with hypotension Resume amlodipine and carvedilol Continue to hold lisinopril and spironolactone MALLORY on CKD stage IIIB Secondary to hypotension dehydration, hypotension resolved MALLORY resolved with IV fluids Nephrology following Acute metabolic acidosis Secondary to MALLORY and dehydration Improved with bicarb Hyperkalemia Treated with Lokelma and resolved Acute hypomagnesemia, hypocalcemia Repleted and resolved esophogitis pepcid Essentially normal EGD Chronic normocytic Anemia stable HH inflammation and CKD Pancytopenia with Borderline B12 and folate deficiency Replace Pressure ulcer Wound care Frequent re positioning Diabetes 2 Insulin sliding scale ada diet DVT prophylaxis with heparin subQ DNR/DNI Quality Stroke Does the patient have a stroke diagnosis?: No VTE Prior VTE?: No VTE Risk Level:: Medical - moderate - high VTE Device Contraindication: Treatment Not Indicated VTE Drug Contraindication: N/A - Med Ordered
[2024-10-13 11:36] LABS: Glucose, Whole Blood 94 mg/dL (60-115)
[2024-10-13] MEDS: methylPREDNISolone Sod Succ 40 MG/ML VIAL IVPUSH ×2 (11:44→23:53)
--- NOTE | 2024-10-13 13:14 | MHC.CLN ---
F/U PO INTAKE VARIABLE PATIENT REPORTS DECREASED PO INTAKE X APPROX 3 WEEKS DIET RX: 2000DM RECOMMEND ADDING ENSURE MAX BID TO PROMOTE WOUND HEALING SUPPLEMENT PROVIDES 300 KCALS, 60G PROTEIN MONITOR PO INTAKE AND ENCOURAGE SUPPLEMENTS
[2024-10-13] MEDS: Furosemide 20 MG/2 ML VIAL IVPUSH (15:00)
[2024-10-13] MEDS: ondansetron HCL 4 MG/2 ML VIAL IVPUSH (15:00)
[2024-10-13 16:49] LABS: Glucose, Whole Blood 197 mg/dL (60-115)
[2024-10-13] MEDS: Insulin Lispro 100 UNIT/ML 3 ML VIAL SUBCUT ×2 (16:57→21:21)
[2024-10-13 20:47] LABS: Glucose, Whole Blood 290 mg/dL (60-115)
[2024-10-13] MEDS: Melatonin 3 MG TABLET 6 MG PO (21:20)
[2024-10-13] MEDS: carvediloL 25 MG TABLET PO (21:21)
[2024-10-13] MEDS: Acetaminophen 325 MG TABLET 975 MG PO (21:21)
[2024-10-14] VITALS (10 sets, daily range): BP systolic 116–151; BP diastolic 58–76; PULSE 60–78; RESP 16–20; TEMP 36–37.3; O2SAT 92–98
[2024-10-14 07:34] LABS: Glucose, Whole Blood 177 mg/dL (60-115)
[2024-10-14] MEDS: Albuterol/Iprat 2.5/0.5MG 3 ML AMPUL.NEB INHALE ×3 (07:34→17:58)
[2024-10-14] MEDS: Atorvastatin Calcium 40 MG TABLET PO (08:44)
[2024-10-14] MEDS: Magnesium Oxide 400 MG TABLET PO ×2 (08:44→17:58)
[2024-10-14] MEDS: carvediloL 25 MG TABLET PO ×2 (08:45→21:29)
[2024-10-14] MEDS: Folic Acid 1 MG TABLET PO (08:45)
[2024-10-14] MEDS: amLODIPine Besylate 10 MG TABLET PO (08:45)
[2024-10-14] MEDS: Gabapentin 300 MG CAPSULE PO ×3 (08:45→21:28)
[2024-10-14] MEDS: Famotidine 20 MG TABLET PO ×2 (08:45→21:28)
[2024-10-14] MEDS: Insulin Lispro 100 UNIT/ML 3 ML VIAL SUBCUT ×4 (08:49→21:30)
[2024-10-14] MEDS: Furosemide 20 MG/2 ML VIAL IVPUSH (08:50)
[2024-10-14] MEDS: 0.9 % Sodium Chloride Flush 3 ML SYRINGE IVFLUSH ×2 (10:27→15:55)
[2024-10-14] MEDS: Heparin Sodium,Porcine 5,000 UNIT/ML VIAL 5000 UNIT SUBCUT ×2 (10:28→21:31)
[2024-10-14] MEDS: methylPREDNISolone Sod Succ 40 MG/ML VIAL IVPUSH (11:19)
[2024-10-14 11:36] LABS: Glucose, Whole Blood 223 mg/dL (60-115)
[2024-10-14] MEDS: oxyCODONE HCl Immed Release 5 MG TABLET PO ×2 (11:52→18:29)
--- NOTE | 2024-10-14 15:19 | P.PNIM_ITS ---
Subjective Subjective Date of Service: 10/14/24 Interval History: seen and examined this morning follow up for mallory, chf Denies shortness of breath at rest, has not yet ambulated to the bathroom this morning Review of Systems Review of Systems: Yes all other systems are reviewed and are negative Constitutional Constitutional: Denies chills and Denies fever(s) Cardiovascular Cardiovascular: Denies chest pain Physical Exam 2 Vital Signs: Vital Signs: Last Vital Signs Temp 99.1 F 10/14/24 15:05 Pulse 68 10/14/24 15:05 Resp 16 10/14/24 15:05 BP 116/59 L 10/14/24 15:05 Pulse Ox 94 10/14/24 15:05 O2 Del Method Nasal Cannula 10/14/24 15:05 O2 Flow Rate 1 10/14/24 15:05 BMI result Body Mass Index 28.2 Const: General: cooperative, comfortable, no acute distress, alert and awake Nutritional Appearance: average body habitus Orientation/consciousness: p atient oriented x3 Resp: Other: basilar rales Effort & Inspection: normal respiratory effort, able to speak in complete sentences, no respiratory distress and no use of accessory muscles Cardio: Rate: regular rate GI: Inspection: No distended Palpation (GI): Soft to palpation Neuro: General: patient oriented x3, moves all extremities and CN's II-XI intact bilaterally Extrem: Other: trace RLE edema; s/p left BKA Objective Data Active Medications Acetaminophen (Acetaminophen 325 Mg Tablet) 975 mg PO Q6H PRN PRN Reason: Pain, Mild 1-3,fever,headache Last Admin: 10/13/24 21:21 Dose: 975 mg Documented By: ANDRES Albuterol/Ipratropium (Albuterol/Iprat 2.5/0.5mg 3 Ml Ampul.Neb) 3 ml INHALE Q4H PRN PRN Reason: Wheezing Last Admin: 10/13/24 09:54 Dose: 3 ml Documented By: ROSE Albuterol/Ipratropium (Albuterol/Iprat 2.5/0.5mg 3 Ml Ampul.Neb) 3 ml INHALE RQ4H WHILE AWAKE ANDIE Last Admin: 10/14/24 11:25 Dose: 3 ml Documented By: MONICA Amlodipine Besylate (Amlodipine Besylate 10 Mg Tablet) 10 mg PO DAILY [facility]; Protocol Last Admin: 10/14/24 08:45 Dose: 10 mg Documented By: MONY Atorvastatin Calcium (Atorvastatin Calcium 40 Mg Tablet) 40 mg PO DAILY [facility] Last Admin: 10/14/24 08:44 Dose: 40 mg Documented By: MONY Calcium Carbonate (Calcium Carbonate 750 Mg Tab.Chew) 750 mg PO Q4H PRN PRN Reason: Heartburn Carvedilol (Carvedilol 25 Mg Tablet) 25 mg PO BID [facility]; Protocol Last Admin: 10/14/24 08:45 Dose: 25 mg Documented By: MONY Dextrose (Dextrose 50 % 25 Gm/50 Ml Syringe) 25 gm IVPUSH Q15M PRN; Protocol PRN Reason: per Hypoglycemia Standing Ord. Famotidine (Famotidine 20 Mg Tablet) 20 mg PO BID [facility] Last Admin: 10/14/24 08:45 Dose: 20 mg Documented By: MONY Folic Acid (Folic Acid 1 Mg Tablet) 1 mg PO DAILY [facility] Last Admin: 10/14/24 08:45 Dose: 1 mg Documented By: MONY Furosemide (Furosemide 20 Mg/2 Ml Vial) 20 mg IVPUSH BID@0900,1800 [facility]; Protocol Last Admin: 10/14/24 08:50 Dose: 20 mg Documented By: MONY Gabapentin (Gabapentin 300 Mg Capsule) 300 mg PO TID [facility] Last Admin: 10/14/24 14:45 Dose: 300 mg Documented By: MONY Glucose (Glucose Gel 15 Gm Gel..Gram.) 15 gm PO Q15M PRN; Protocol PRN Reason: per Hypoglycemia Standing Ord. Heparin Sodium (Porcine) (Heparin Sodium,Porcine 5,000 Unit/Ml Vial) 5,000 unit SUBCUT BID [facility] Last Admin: 10/14/24 10:28 Dose: 5,000 unit Documented By: MONY Insulin Human Lispro (Insulin Lispro 100 Unit/Ml 3 Ml Vial) 0 unit SUBCUT QIDACHS [facility]; Protocol Last Admin: 10/14/24 11:53 Dose: 4 unit Documented By: MONY Magnesium Hydroxide (Milk Of Magnesia 30 Ml Oral.Susp) 30 ml PO DAILY PRN PRN Reason: Constipation Magnesium Oxide (Magnesium Oxide 400 Mg Tablet) [facility] Last Admin: 10/14/24 08:44 Dose: 400 mg Documented By: MONY Melatonin (Melatonin 3 Mg Tablet) 6 mg PO BEDTIME PRN PRN Reason: Insomnia Last Admin: 10/13/24 21:20 Dose: 6 mg Documented By: ANDRES Methylprednisolone Sodium Succinate (Methylprednisolone Sod Succ 40 Mg/Ml Vial) 40 mg IVPUSH Q12H [facility] Last Admin: 10/14/24 11:19 Dose: 40 mg Documented By: MONY Ondansetron HCl (Ondansetron Hcl 4 Mg/2 Ml Vial) 4 mg IVPUSH Q8H PRN PRN Reason: Nausea and Vomiting Last Admin: 10/13/24 15:00 Dose: 4 mg Documented By: RIOSCMANPREET Oxycodone HCl (Oxycodone Hcl Immed Release 5 Mg Tablet) 5 mg PO Q6H PRN PRN Reason: Pain, Moderate(Pain Scale 4-6) Last Admin: 10/14/24 11:52 Dose: 5 mg Documented By: MONY Sodium Chloride (0.9 % Sodium Chloride Flush 3 Ml Syringe) 3 ml IVFLUSH QSHIFT [facility] Last Admin: 10/14/24 10:27 Dose: 3 ml Documented By: MONY Labs 10/13/24 06:15 10/13/24 06:15 Labs: Laboratory Results - last 24 hr 10/13/24 10/13/24 10/14/24 16:45 20:34 07:22 POC Glucose 197 H 290 H 177 H 10/14/24 11:20 POC Glucose 223 H Microbiology Microbiology Results: Microbiology 10/08/24 16:12 Blood Culture - Final Blood - Venous No growth after 5 days. 10/08/24 16:07 Blood Culture - Final Blood - Venous No growth after 5 days. Assessment and Plan (1) Esophagitis: Status: Acute (2) CKD stage 4 secondary to hypertension: Status: Acute Plan 79 year old H CKD 3B, chronic diastolic CHF, hypertension, diabetes, COPD, remote history of osteosarcoma status post BKA presented with fatigue and weakness Acute hypoxic respiratory failure likely secondary to COPD exacerbation Started on IV Solu-Medrol, scheduled DuoNebs Supplemental oxygen to keep oxygen saturation greater than 91% Acute on chronic HFpEF On torsemide at baseline, was held due to MALLORY Started on IV Lasix 20 b.i.d., likely not sufficient we will increase to 40 b.i.d. for tonight Likely transitioned back to oral torsemide in the morning Weakness and fatigue with diffuse body pain Multifactorial due to hypotension, MALLORY Warm compress for neck pain Encourage out of bed to chair Supportive care PT recommended short-term rehab. Patient not willing to go to short-term rehab. We will return home with services when medically ready Hypertension with hypotension Resume amlodipine and carvedilol Continue to hold lisinopril and spironolactone MALLORY on CKD stage IIIB Secondary to hypotension dehydration, hypotension resolved MALLORY resolved with IV fluids Nephrology following Acute metabolic acidosis Secondary to MALLORY and dehydration Improved with bicarb Hyperkalemia Treated with Lokelma and resolved Acute hypomagnesemia, hypocalcemia Repleted and resolved esophigitis pepcid Essentially normal EGD 10/12 Chronic normocytic Anemia stable HH inflammation and CKD Pancytopenia with Borderline B12 and folate deficiency Replace Pressure ulcer Wound care Frequent re positioning Diabetes 2 Insulin sliding scale ada diet DVT prophylaxis with heparin subQ DNR/DNI Quality Stroke Does the patient have a stroke diagnosis?: No VTE Prior VTE?: No VTE Risk Level:: Medical - moderate - high VTE Device Contraindication: Treatment Not Indicated VTE Drug Contraindication: N/A - Med Ordered
[2024-10-14] MEDS: Acetaminophen 325 MG TABLET 975 MG PO (15:40)
[2024-10-14 16:12] LABS: Glucose, Whole Blood 204 mg/dL (60-115)
[2024-10-14] MEDS: Furosemide 20 MG/2 ML VIAL 40 MG IVPUSH (17:57)
[2024-10-14 20:23] LABS: Glucose, Whole Blood 251 mg/dL (60-115)
[2024-10-15] VITALS (11 sets, daily range): BP systolic 124–152; BP diastolic 58–67; PULSE 68–77; RESP 14–20; TEMP 36–37.1; O2SAT 89–95
[2024-10-15] MEDS: methylPREDNISolone Sod Succ 40 MG/ML VIAL IVPUSH ×2 (00:33→11:29)
[2024-10-15 06:21] LABS: Anion Gap 15 (12-20); Blood Urea Nitrogen 39 mg/dL (9-16); Calcium 8.8 mg/dL (8.4-10.2); Carbon Dioxide 26 mmol/L (22-29); Chloride 102 mmol/L (96-108); Creatinine Clr Calc Pharmacy 20.6; Estimated Glomerular Filt Rate 33; Glucose Random 220 mg/dL (60-115); Potassium 4.5 mmol/L (3.3-5.1); Sodium 138 mmol/L (135-145)
[2024-10-15 07:46] LABS: Glucose, Whole Blood 215 mg/dL (60-115)
[2024-10-15] MEDS: Albuterol/Iprat 2.5/0.5MG 3 ML AMPUL.NEB INHALE ×2 (07:46→19:36)
[2024-10-15] MEDS: oxyCODONE HCl Immed Release 5 MG TABLET PO ×3 (08:59→20:23)
[2024-10-15] MEDS: amLODIPine Besylate 10 MG TABLET PO (09:00)
[2024-10-15] MEDS: Folic Acid 1 MG TABLET PO (09:00)
[2024-10-15] MEDS: carvediloL 25 MG TABLET PO ×2 (09:00→20:14)
[2024-10-15] MEDS: Famotidine 20 MG TABLET PO ×2 (09:00→20:14)
[2024-10-15] MEDS: Atorvastatin Calcium 40 MG TABLET PO (09:00)
[2024-10-15] MEDS: Magnesium Oxide 400 MG TABLET PO ×2 (09:00→16:59)
[2024-10-15] MEDS: Gabapentin 300 MG CAPSULE PO ×3 (09:01→20:13)
[2024-10-15] MEDS: Insulin Lispro 100 UNIT/ML 3 ML VIAL SUBCUT ×4 (09:03→20:13)
[2024-10-15] MEDS: Heparin Sodium,Porcine 5,000 UNIT/ML VIAL 5000 UNIT SUBCUT ×2 (09:04→20:13)
[2024-10-15] MEDS: 0.9 % Sodium Chloride Flush 3 ML SYRINGE IVFLUSH ×3 (09:05→20:15)
[2024-10-15] MEDS: ondansetron HCL 4 MG/2 ML VIAL IVPUSH ×2 (10:44→20:13)
[2024-10-15 11:21] LABS: Glucose, Whole Blood 203 mg/dL (60-115)
--- NOTE | 2024-10-15 11:58 | MHC.CLN ---
F/U DIET RX: 2000DM ENSURE MAX BID TO PROMOTE WOUND HEALING. SUPPLEMENT PROVIDES 300 KCALS, 60G PROTEIN. SKIN WITH UNSTAGEABLE AREA TO SACRUM. MOST RECENT INTAKE 50-100%. MONITOR PO INTAKE AND ENCOURAGE SUPPLEMENTS.
--- NOTE | 2024-10-15 14:59 | P.DS_ITS ---
DS: Providers Provider Date of Service: 10/16/24 Date of admission: 10/09/24 00:10 Date of discharge: 10/16/24 Primary care physician: Jodi Sun MD Consults: 10/09/24 00:22 Consult to Nephrology Routine Consulting Provider: Aime Magana Reason for consultation: MALLORY on CKD, hyperkalemia Has provider been notified: Yes 10/09/24 00:32 Consult to Wound Care Routine Reason for consultation: buttock wound 10/09/24 11:05 Consult to Wound Care Routine Reason for consultation: PI on R buttocks found on admit 10/10/24 11:39 Consult to Gastroenterology Routine Consulting Provider: Ewa Dc Reason for consultation: poor appetite, esophagitis Attending physician on discharge: Aaron Wilkins Discharging clinician: Jyothi Macias DS: Diagnosis Discharge Diagnosis (1) Esophagitis: Status: Acute (2) CKD stage 4 secondary to hypertension: Status: Acute DS: Summary Hospital Course Hospital Course: From H&P on the day of admission Patient is a 79-year-old female with a past medical history significant for type 2 diabetes, COPD unspecified, HTN, CKD3b, GERD, gout, HLD, peripheral edema, s/p BKA secondary to bone cancer at 20 years old, who presented to the ED due to lightheadedness, generalized fatigue and weakness with decreased appetite for about 3 weeks. The patient reports that she does not have any nausea or vomiting but just has no desire to eat. She also reports very infrequent and small volume urination for the past week. She denies any dysuria or urgency. She has no history of UTIs. She also reports a bed sore on her buttocks which she states she has had about a week. She also has chronic shoulder and neck pain. Weakness and fatigue due to acute kidney injury on CKD 3B due to hypotension and dehydration complicated by acute metabolic acidosis, acute hyperkalemia antihypertensives and diuretics initially placed on hold. Potassium and bicarb normalized acute hypoxic respiratory failure Due to COPD exacerbation and acute on chronic CHF likely due to holding diuretics and treating with IV fluid. She was treated with IV Lasix and we will be resumed on baseline oral medication. We will be discharged with course of oral steroids. Weaned off of supplemental oxygen. No respiratory symptoms. Acute hypomagnesemia, hypocalcemia Replaced and improved. Gastritis EGD essentially normal, some gastritis. Continue Pepcid, avoid NSAIDs. Chronic Anemia of inflammation and CKD. Stable unstagable Pressure ulcer to sacrum. Present on admission Wound care.Sacrum - Off Load Pressure with Q2 hr turns and use of pillows - Cleanse with PH balance spray or wipes, pat dry. ?Apply thin layer of Triad to wound bed. Do not remove all of paste between applications as this may cause further skin damage.? Cover with foam dressing to aid in off loading and protection from friction. Change every 3 days and PRN. Patient was evaluated by Physical therapy who recommended short-term rehab. Patient has declined short-term rehab and will be discharged home home services. Time Attestation Discharge Coordination Time (in mins): 36 Quality: Safe Use of Opioids Does Pt have an Active Cancer Diagnosis on the Problem List?: No Quality: Stroke Does the patient have a stroke diagnosis?: No Physical Exam Vital Signs: Vital Signs: Last Vital Signs Temp 98.3 F 10/15/24 12:00 Pulse 73 10/15/24 12:00 Resp 14 10/15/24 12:00 BP 125/59 L 10/15/24 12:00 Pulse Ox 95 10/15/24 12:00 O2 Del Method Nasal Cannula 10/15/24 08:00 O2 Flow Rate 1 10/15/24 08:00 BMI result Body Mass Index 28.2 Const: General: cooperative, comfortable, no acute distress, alert and awake Nutritional Appearance: average body habitus Orientation/consciousness: patient oriented x3 Resp: Effort & Inspection: normal respiratory effort, able to speak in complete sentences, no respiratory distress and no use of accessory muscles Cardio: Rate: regular rate GI: Inspection: No distended Palpation (GI): Soft to palpation Neuro: General: patient oriented x3, moves all extremities and CN's II-XI int act bilaterally Extrem: Other: trace RLE edema; s/p left BKA DS: Data Data Completed and Pending Completed studies during hospitalization [Text1]: Pending at discharge 10/12/24 15:08 Surgical [PTH] Routine Labs on day of discharge: Laboratory Results - last 24 hr 10/14/24 10/14/24 10/15/24 16:08 20:15 05:25 Sodium 138 Potassium 4.5 Chloride 102 Carbon Dioxide 26 Anion Gap 15 BUN 39 H Creatinine 1.53 H Estim Creat Clear Calc 20.6 Estimated GFR 33 POC Glucose 204 H 251 H Random Glucose 220 H Calcium 8.8 10/15/24 10/15/24 07:39 11:16 Sodium Potassium Chloride Carbon Dioxide Anion Gap BUN Creatinine Estim Creat Clear Calc Estimated GFR POC Glucose 215 H 203 H Random Glucose Calcium Additional Comments Additional comments: EGD Findings:? * Esophagus:? Normal mucosa noted in the entire esophagus. The Z line was at 35 cm displaced by a hiatal hernia with the hiatus at 35 cm. * Stomach:? Fundus and body had edema and lumpy bumpy appearance but remaining mucosa appeared endoscopically normal. Cold forceps gastric biopsies were taken for histology. Retroflexion was performed in the cardia that showed Hill grade 2 hiatal hernia. * Duodenum:? Normal mucosa was noted in the whole of the examined duodenum. ? EGD Impressions:? * Normal esophagus * Gastritis (biopsy) * Normal duodenum Discharge Plan Discharge Anticipated Discharge Date/Time: 10/16/24 11:05 Patient Disposition: Home Health Service Discharge Diagnosis: MALLORY on CKD, hypotension, metabolic acidosis, hyperkalemia Referrals: [facility] [Outside] - 1 Week Jodi Sun MD [Primary Care Provider] - 1 Week Discharge Medications: New prednisone 20 mg Tablet 40 mg PO DAILY 4 Days Qty: 8 0RF Continued carvedilol 25 mg tablet 25 mg PO BID Rx Instructions: must administer with a meal/food cholecalciferol (vitamin D3) 50 mcg (2,000 unit) capsule 50 mcg PO DAILY albuterol sulfate 90 mcg/actuation HFA aerosol inhaler 2 puff inhalation Q6H PRN (Reason: Shortness Of Breath Or Wheezing) hydroxyzine pamoate 25 mg capsule 25 mg PO QID buprenorphine [Butrans] 20 mcg/hour patch weekly 1 patch topical FR Jardiance 10 mg tablet 10 mg PO DAILY Breztri Aerosphere 160-9-4.8 mcg/actuation HFA aerosol inhaler 2 inh inhalation BID amlodipine 10 mg tablet 10 mg PO DAILY lisinopril 10 mg tablet 10 mg PO BID atorvastatin 40 mg tablet 40 mg PO DAILY gabapentin 300 mg capsule 300 mg PO TID torsemide 20 mg tablet 40 mg PO DAILY omeprazole 40 mg capsule,delayed release(DR/EC) 40 mg PO DAILY@0630 isosorbide mononitrate 30 mg tablet extended release 24 hr 90 mg PO DAILY No Action (DME) patricia Misc See Rx Instructions .ROUTE .MEDSUPPLY Qty: 1 0RF Rx Instructions: As directed Discharge Orders: Discharge Order (Routine); Ordered 10/16/24 Ordered By: Jyothi Macias Activity on Discharge: As tolerated Stand Alone Forms: Patient Portal Discharge page Print Language: Latvian Care Plan Goals: See below Health Concerns: MALLORY COPD CHF Plan of Treatment: Call to schedule follow-up appointment with Nephrology Complete course of oral steroids as prescribed avoid NSAIDs (motrin, ibuprofen, etc) Assessment: See discharge summary
--- NOTE | 2024-10-15 15:08 | P.CDIM_ITS ---
PROVIDER RESPONSE TEXT: To clarify, the appropriate diagnosis supported by the clinical indicators: Other (explain): unstagable pressure ulcer to sacrum QUERY TEXT: PHYSICIAN'S DOCUMENTATION REQUEST Date of Query: 10/15/2024 12:27 PM EDT Patient Name: KAYLA CUMMINS Admit Date: 10/09/2024 Dear Jyothi CARLSON, A review of the medical record indicates additional documentation may be needed. Please review below and update the documentation accordingly. Clinical Indicators: per wound note 10/11/24: unstageable pressure injury sacrum present on admission Off load pressure and triad and foam dressing Based on the above, could you please provide further information regarding the ulcer/wound: Pressure (decubitus) ulcer, DTI sacrum Other (explain) Clinically unable to determine (explain) Thank you, Britney Rodas RN Use of terms such as suspected, likely, concern for, or probable (associated with a specific diagnosi s that is being evaluated, monitored, or treated as if it exists) are acceptable and can be coded in the inpatient se tting, when documented at the time of discharge. Please use your independent medical judgment in providing your response. THIS QUERY IS PART OF THE PERMANENT MEDICAL RECORD
--- NOTE | 2024-10-15 15:38 | MHC.CM.PN ---
IMM 10/15/24 Patient stated that she felt dizzy while she was tested for home oxygen. Patient does not qualify for home oxygen. She will discharge back to [facility] with Mitchel PETERSON tomorrow. She will arrange for her dtr to provide transportation home.
[2024-10-15 16:17] LABS: Glucose, Whole Blood 218 mg/dL (60-115)
[2024-10-15] MEDS: Acetaminophen 325 MG TABLET 975 MG PO (17:03)
--- NOTE | 2024-10-15 18:08 | P.PNIM_ITS ---
Subjective Subjective Date of Service: 10/15/24 Interval History: Seen and examined this morning Feeling dizzy -states she has chronic vertigo and we keep lying her flat to readjust her in bed which is exacerbating her vertigo. At home she sleeps in the reclined position She denies abdominal pain, shortness of breath or cough Review of Systems Review of Systems: Yes all other systems are reviewed and are negative Constitutional Constitutional: Denies chills and Denies fever(s) Physical Exam 2 Vital Signs: Vital Signs: Last Vital Signs Temp 98.7 F 10/15/24 15:13 Pulse 70 10/15/24 15:13 Resp 16 10/15/24 15:13 BP 138/63 10/15/24 15:13 Pulse Ox 93 10/15/24 15:13 O2 Del Method Room Air 10/15/24 15:13 O2 Flow Rate 1 10/15/24 08:00 BMI result Body Mass Index 28.2 Const: General: cooperative, comfortable, no acute distress, alert and awake Nutritional Appearance: average body habitus Orientation/consciousness: p atient oriented x3 Resp: Effort & Inspection: normal respiratory effort, able to speak in complete sentences, no respiratory distress and no use of accessory muscles Cardio: Rate: regular rate GI: Inspection: No distended Palpation (GI): Soft to palpation Neuro: General: patient oriented x3, moves all extremities and CN's II-XI intact bilaterally Extrem: Other: trace RLE edema; s/p left BKA Objective Data Active Medications Acetaminophen (Acetaminophen 325 Mg Tablet) 975 mg PO Q6H PRN PRN Reason: Pain, Mild 1-3,fever,headache Last Admin: 10/15/24 17:03 Dose: 975 mg Documented By: MONY Albuterol/Ipratropium (Albuterol/Iprat 2.5/0.5mg 3 Ml Ampul.Neb) 3 ml INHALE Q4H PRN PRN Reason: Wheezing Last Admin: 10/13/24 09:54 Dose: 3 ml Documented By: ROSE Albuterol/Ipratropium (Albuterol/Iprat 2.5/0.5mg 3 Ml Ampul.Neb) 3 ml INHALE RQ4H WHILE AWAKE [facility] Last Admin: 10/15/24 15:34 Dose: Not Given Documented By: LULA Non-Admin Reason: Patient Refused Amlodipine Besylate (Amlodipine Besylate 10 Mg Tablet) 10 mg PO DAILY [facility]; Protocol Last Admin: 10/15/24 09:00 Dose: 10 mg Documented By: MONY Atorvastatin Calcium (Atorvastatin Calcium 40 Mg Tablet) 40 mg PO DAILY [facility] Last Admin: 10/15/24 09:00 Dose: 40 mg Documented By: MONY Calcium Carbonate (Calcium Carbonate 750 Mg Tab.Chew) 750 mg PO Q4H PRN PRN Reason: Heartburn Carvedilol (Carvedilol 25 Mg Tablet) 25 mg PO BID [facility]; Protocol Last Admin: 10/15/24 09:00 Dose: 25 mg Documented By: MONY Dextrose (Dextrose 50 % 25 Gm/50 Ml Syringe) 25 gm IVPUSH Q15M PRN; Protocol PRN Reason: per Hypoglycemia Standing Ord. Famotidine (Famotidine 20 Mg Tablet) 20 mg PO BID [facility] Last Admin: 10/15/24 09:00 Dose: 20 mg Documented By: MONY Folic Acid (Folic Acid 1 Mg Tablet) 1 mg PO DAILY [facility] Last Admin: 10/15/24 09:00 Dose: 1 mg Documented By: MONY Gabapentin (Gabapentin 300 Mg Capsule) 300 mg PO TID [facility] Last Admin: 10/15/24 14:14 Dose: 300 mg Documented By: ELDER Glucose (Glucose Gel 15 Gm Gel..Gram.) 15 gm PO Q15M PRN; Protocol PRN Reason: per Hypoglycemia Standing Ord. Heparin Sodium (Porcine) (Heparin Sodium,Porcine 5,000 Unit/Ml Vial) 5,000 unit SUBCUT BID [facility] Last Admin: 10/15/24 09:04 Dose: 5,000 unit Documented By: MONY Insulin Human Lispro (Insulin Lispro 100 Unit/Ml 3 Ml Vial) 0 unit SUBCUT QIDACHS [facility]; Protocol Last Admin: 10/15/24 17:01 Dose: 4 unit Documented By: MONY Magnesium Hydroxide (Milk Of Magnesia 30 Ml Oral.Susp) 30 ml PO DAILY PRN PRN Reason: Constipation Magnesium Oxide (Magnesium Oxide 400 Mg Tablet) 400 mg PO BIDPC [facility] Last Admin: 10/15/24 16:59 Dose: 400 mg Documented By: MONY Melatonin (Melatonin 3 Mg Tablet) 6 mg PO BEDTIME PRN PRN Reason: Insomnia Last Admin: 10/13/24 21:20 Dose: 6 mg Documented By: ANDRES Methylprednisolone Sodium Succinate (Methylprednisolone Sod Succ 40 Mg/Ml Vial) 40 mg IVPUSH Q12H [facility] Last Admin: 10/15/24 11:29 Dose: 40 mg Documented By: MONY Ondansetron HCl (Ondansetron Hcl 4 Mg/2 Ml Vial) 4 mg IVPUSH Q8H PRN PRN Reason: Nausea and Vomiting Last Admin: 10/15/24 10:44 Dose: 4 mg Documented By: MONY Oxycodone HCl (Oxycodone Hcl Immed Release 5 Mg Tablet) 5 mg PO Q6H PRN PRN Reason: Pain, Moderate(Pain Scale 4-6) Last Admin: 10/15/24 14:14 Dose: 5 mg Documented By: ELDER Sodium Chloride (0.9 % Sodium Chloride Flush 3 Ml Syringe) 3 ml IVFLUSH QSHIFT [facility] Last Admin: 10/15/24 17:01 Dose: 3 ml Documented By: MONY Labs 10/13/24 06:15 10/15/24 05:25 Labs: Laboratory Results - last 24 hr 10/14/24 10/15/24 10/15/24 20:15 05:25 07:39 Anion Gap 15 Estim Creat Clear Calc 20.6 Estimated GFR 33 POC Glucose 251 H 215 H Random Glucose 220 H Calcium 8.8 10/15/24 10/15/24 11:16 16:06 Anion Gap Estim Creat Clear Calc Estimated GFR POC Glucose 203 H 218 H Random Glucose Calcium Assessment and Plan (1) Anorexia: Status: Acute Plan 79 year old H CKD 3B, chronic diastolic CHF, hypertension, diabetes, COPD, remote history of osteosarcoma status post BKA presented with fatigue and weakness Acute hypoxic respiratory failure likely secondary to COPD exacerbation Started on IV Solu-Medrol, scheduled DuoNebs Supplemental oxygen to keep oxygen saturation greater than 91% Weaned off of supplemental oxygen Acute on chronic HFpEF On torsemide at baseline, was held due to MALLORY Started on IV Lasix 20 b.i.d., likely not sufficient we will increase to 40 b.i.d. for tonight Transitioned back to oral torsemide Weakness and fatigue with diffuse body pain Multifactorial due to hypotension, MALLORY Warm compress for neck pain Encourage out of bed to chair-patient has been resistant to getting up and out of bed Supportive care PT recommended short-term rehab. Patient not willing to go to short-term rehab. We will return home with services when medically ready Hypertension with hypotension Resume amlodipine and carvedilol Continue to hold lisinopril and spironolactone MALLORY on CKD stage IIIB Secondary to hypotension dehydration, hypotension resolved MALLORY resolved with IV fluids Outpatient follow-up with Nephrology Acute metabolic acidosis Secondary to MALLORY and dehydration Improved with bicarb Hyperkalemia Treated with Lokelma and resolved Acute hypomagnesemia, hypocalcemia Repleted and resolved esophigitis pepcid Essentially normal EGD 10/12 Chronic normocytic Anemia stable HH inflammation and CKD Pancytopenia with Borderline B12 and folate deficiency Replace Unstageable sacral Pressure ulcer. Present on admission Wound care Frequent re positioning; see wound care nurse for further details Diabetes 2 Insulin sliding scale ada diet DVT prophylaxis with heparin subQ DNR/DNI Quality Stroke Does the patient have a stroke diagnosis?: No VTE Prior VTE?: No VTE Risk Level:: Medical - moderate - high VTE Device Contraindication: Treatment Not Indicated VTE Drug Contraindication: N/A - Med Ordered
[2024-10-15] MEDS: Melatonin 3 MG TABLET 6 MG PO (20:14)
[2024-10-15 20:18] LABS: Glucose, Whole Blood 163 mg/dL (60-115)
--- NOTE | 2024-10-15 22:38 | P.PNNP_ITS ---
Subjective Subjective Date of Service: 10/15/24 Interval history: Seen and examined Physical Exam 2 Vital Signs: Vital Signs: Last Vital Signs Temp 97.1 F 10/15/24 20:00 Pulse 72 10/15/24 20:14 Resp 18 10/15/24 20:00 BP 124/58 L 10/15/24 20:14 Pulse Ox 92 10/15/24 20:00 O2 Del Method Room Air 10/15/24 20:00 O2 Flow Rate 1 10/15/24 08:00 BMI result Body Mass Index 28.2 Const: General: cooperative, healthy appearing, comfortable and no acute distress; No confusion Orientation/consciousness: patient oriented x3 and No confusion Limitations: no limitations and No language barrier HEENT: Head: Yes normal to inspection and Yes atraumatic Ears: hearing grossly normal bilaterally General nose exam: Normal external nose present Face and sinus: Yes normal facial exam Eyes: General: appearance normal, both eyes and all related structures EOM: EOMs intact bilaterally Direct Ophthalmoscopy: No photophobia Neck: Neck: Yes normal visual inspection, Yes no lymphadenopathy and Yes no meningeal signs Resp: Effort & Inspection: normal respiratory effort and no respiratory distress Auscultation: clear to auscultation bilaterally, no crackles and no wheezes Cardio: Rate: regular rate Rhythm: regular rhythm Heart sounds: S1 normal heart sound present and S2 normal heart sound present GI: Other: vague small hernia on upper abdomen at midline, not tender Inspection: Yes normal to inspection Palpation (GI): Soft to palpation, not firm, nontender, no guarding and not rigid : General: Yes no CVA tenderness Back/Spine/Pelvis: Back: no CVA tenderness Skin: Rashes: no rashes Wounds: no wounds Neuro: General: patient oriented x3, gait normal, tone normal, moves all extremities, no meningeal signs, no focal motor deficits, CN's II-XI intact bilaterally and No confusion Cranial nerves: Yes CN's II-XII intact bilaterally Cognition (Neuro): normal cognition Speech: No Abnormal speech present Motor exam (neuro): 5/5 motor strength present throughout and no tremor noted Extrem: Other: LLE BKA 1-2+ RLE pitting edema Objective Data Labs 10/13/24 06:15 10/15/24 05:25 Labs: Laboratory Results - last 24 hr 05/08/1010/15/24 10/15/24 05:25 07:39 11:16 Sodium 138 Potassium 4.5 Chloride 102 Carbon Dioxide 26 Anion Gap 15 BUN 39 H Creatinine 1.53 H Estim Creat Clear Calc 20.6 Estimated GFR 33 POC Glucose 215 H 203 H Random Glucose 220 H Calcium 8.8 10/15/24 10/15/24 16:06 20:10 Sodium Potassium Chloride Carbon Dioxide Anion Gap BUN Creatinine Estim Creat Clear Calc Estimated GFR POC Glucose 218 H 163 H Random Glucose Calcium Microbiology Microbiology Results: Microbiology 10/08/24 16:12 Blood - Venous Blood Culture - Final No growth after 5 days. 10/08/24 16:07 Blood - Venous Blood Culture - Final No growth after 5 days. Procedures Date of Service Date of Service: 10/15/24 Assessment & Plan Assessment and plan (1) Acute kidney injury superimposed on CKD: Status: Acute (2) CKD stage 4 secondary to hypertension: Status: Acute Plan Cathy is a 77-year-old female with past medical history significant for diabetes, hypertension, COPD, left BKA , hypertensive emergency, acute kidney injury and HFpef Impression: 1. acute kidney injury on CKD stage 3/4. BL cr of 2- now with cr of 3.25---> 2.8 --> 1.76--> 1.5 2. 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 h/o Uncontrolled hypertension- 4. Acute on chronic metabolic acidosis: resolved REC agree with current BP meds and r/s diuretics avoid nephrotoxins will need close outpt f/u with nephrology Time Spent With Patient Time: Total time managing care of this patient today ____ minutes. Progress Note: Quality Stroke Does the patient have a stroke diagnosis?: No
[2024-10-16 03:34] VITALS: BP 142/73; PULSE 69; RESP 18; TEMP 36.4; O2SAT 93
--- NOTE | 2024-10-16 04:32 | PC.NURSE ---
Pt seen on bed at shift change alert and oriented, c/o nausea, back/ bottom and heels pain, still with SOB on exertion, tolerating RA, PRN Oxycodone and ZOfran given, with good effect, slept after, repositioning on bed done with pt's compliance, callbell in reach.
[2024-10-16 07:05] VITALS: BP 150/65; PULSE 68; RESP 16; TEMP 36.6; O2SAT 94
[2024-10-16 07:21] LABS: Glucose, Whole Blood 172 mg/dL (60-115)
[2024-10-16 07:38] VITALS: PULSE 67; RESP 18; O2SAT 93
[2024-10-16] MEDS: Albuterol/Iprat 2.5/0.5MG 3 ML AMPUL.NEB INHALE ×2 (07:38→11:28)
[2024-10-16] MEDS: Insulin Lispro 100 UNIT/ML 3 ML VIAL SUBCUT (07:44)
[2024-10-16] MEDS: Magnesium Oxide 400 MG TABLET PO (07:46)
[2024-10-16] MEDS: Atorvastatin Calcium 40 MG TABLET PO (07:46)
[2024-10-16] MEDS: amLODIPine Besylate 10 MG TABLET PO (07:47)
[2024-10-16] MEDS: predniSONE 20 MG TABLET 40 MG PO (07:47)
[2024-10-16] MEDS: Gabapentin 300 MG CAPSULE PO (07:47)
[2024-10-16] MEDS: Folic Acid 1 MG TABLET PO (07:47)
[2024-10-16] MEDS: carvediloL 25 MG TABLET PO (07:48)
[2024-10-16] MEDS: Famotidine 20 MG TABLET PO (07:48)
[2024-10-16] MEDS: 0.9 % Sodium Chloride Flush 3 ML SYRINGE IVFLUSH (07:51)
[2024-10-16] MEDS: Heparin Sodium,Porcine 5,000 UNIT/ML VIAL 5000 UNIT SUBCUT (07:52)
[2024-10-16] MEDS: oxyCODONE HCl Immed Release 5 MG TABLET PO (08:27)
[2024-10-16] MEDS: ondansetron HCL 4 MG/2 ML VIAL IVPUSH (10:45)
--- NOTE | 2024-10-16 11:18 | P.F2F_ITS ---
Service Date Service Date: 10/16/24 Encounter Date of encounter: 10/16/24 Reasons for Services Signs and symptoms assessed: Sacrum - Off Load Pressure with Q2 hr turns and use of pillows - Cleanse with PH balance spray or wipes, pat dry. ?Apply thin layer of Triad to wound bed. Do not remove all of paste between applications as this may cause further skin damage.? Cover with foam dressing to aid in off loading and protection from friction. Change every 3 days and PRN. Elevate right heel off of bed surface with pillow. May apply preventative foam dressing peel back and assess Q shift and change every 5 days. Reason for senior care: wound care Reason for physical therapy: home safety and mobility and therapeutic exercises Overseeing Care: Jodi Sun Homebound: Leaving the home is medically contraindicated at this time without the asist of a device and/or another person due th the listed conditions above and below. Reason homebound: weakness related to hospital stay Certification: Based on the above findings, I certify that this patient is confined to the home and needs intermittent senior care care, physical therapy and/or speech therapy, or continues to need occupational therapy. The patient is under my care, and I have initiated the establishment of the plan of care. The patient will be followed by a physician who will periodically review the plan of care. Time Spent With Patient Time: Total time managing care of this patient today ____ minutes.
[2024-10-16 11:23] VITALS: BP 116/56; PULSE 62; RESP 16; TEMP 36.8; O2SAT 94
[2024-10-16 11:28] VITALS: PULSE 87; RESP 18; O2SAT 95
[2024-10-16 11:31] LABS: Glucose, Whole Blood 143 mg/dL (60-115)
--- NOTE | 2024-10-16 12:04 | MHC.CM.PN ---
Addendum entered by Kaci Montenegro 10/16/24 12:06: IMM [facility]24[facility]. Original Note: Patient is discharged today. She will return to [facility]. Her dtr is providing transportation home.
[2024-10-16] MEDS: Meclizine HCl 25 MG TABLET PO (13:49)
== END 2024-10-16 14:39 | disposition home health service (06) | DRG 682 ==
LOC: HO.ED 17:38 → HO.EDOVER 10-09 00:14 → HO.IMC 10-09 07:54 → HO.S3 10-14 01:48
PROVIDERS: Internal Medicine; Nurse Practitioner Acute Care; Physician Assistant; Physician Assistant Medical; Admitting Provider Student in an Organized Health Care Education/Training Program; Emergency Provider Emergency Medicine; PCP Student in an Organized Health Care Education/Training Program; Visit Provider Physician Assistant Medical
PROC: 0DJ08ZZ Inspection of Upper Intestinal Tract, Via Natural or Artificial Opening Endoscopic (ICD-10-PCS; CPT 43235; principal; 2024-10-12 14:20)
DX: N17.9 Acute kidney failure, unspecified (principal); I50.33 Acute on chronic diastolic (congestive) heart failure; J96.01 Acute respiratory failure with hypoxia; I13.0 Hypertensive heart and chronic kidney disease with heart failure and stage 1 through stage 4 chronic kidney disease, or unspecified chronic kidney disease; D61.818 Other pancytopenia; E87.21 Acute metabolic acidosis; E87.22 Chronic metabolic acidosis; J44.1 Chronic obstructive pulmonary disease with (acute) exacerbation; I95.9 Hypotension, unspecified; N18.4 Chronic kidney disease, stage 4 (severe); Z66 Do not resuscitate; E86.0 Dehydration; M10.9 Gout, unspecified; D63.1 Anemia in chronic kidney disease; E87.5 Hyperkalemia; K21.00 Gastro-esophageal reflux disease with esophagitis, without bleeding; K43.9 Ventral hernia without obstruction or gangrene; E11.22 Type 2 diabetes mellitus with diabetic chronic kidney disease; L89.150 Pressure ulcer of sacral region, unstageable; K29.70 Gastritis, unspecified, without bleeding; K44.9 Diaphragmatic hernia without obstruction or gangrene; E83.42 Hypomagnesemia; E83.51 Hypocalcemia; Z20.822 Contact with and (suspected) exposure to COVID-19; Z85.830 Personal history of malignant neoplasm of bone; Z89.512 Acquired absence of left leg below knee; Z87.891 Personal history of nicotine dependence; Z79.899 Other long term (current) drug therapy
CPT/HCPCS: 0241U; 36415; 71045; 74176; 80048; 80076; 81003; 82436; 82607; 82746; 82803; 82947; 83540; 83605; 83735; 83880; 84133; 84300; 84484; 85025; 85027; 87040; 88305; 88313; 88342; 93005; 94640; 97162; 97530; 99285; J0613; J1171; J1644; J1938; J2003; J2405; J2543; J2704; J2919; J3420; J3475; J7120; P9047

== ENCOUNTER → 2024-10-08 15:30 | Outpatient (BNV) | payer MEDICARE, MEDICAID, SELFPAY | PROVIDERS: Admitting Provider Student in an Organized Health Care Education/Training Program; Emergency Provider Emergency Medicine; PCP Student in an Organized Health Care Education/Training Program; Visit Provider Internal Medicine | DX: R94.31 Abnormal electrocardiogram [ECG] [EKG] (principal); R42 Dizziness and giddiness | CPT/HCPCS: 93010 ==

== ENCOUNTER → 2024-10-08 15:30 | Outpatient (BNV) | payer MEDICARE, MEDICAID, SELFPAY | PROVIDERS: Emergency Provider Emergency Medicine; PCP Student in an Organized Health Care Education/Training Program; Visit Provider Radiology Diagnostic Radiology | DX: K43.9 Ventral hernia without obstruction or gangrene (principal); I95.9 Hypotension, unspecified | CPT/HCPCS: 71045; 74176 ==

== ENCOUNTER 2024-10-09 00:10 | Outpatient (BNV) | payer MEDICARE, MEDICAID, SELFPAY | END 2024-10-11 09:15 | PROVIDERS: Admitting Provider Student in an Organized Health Care Education/Training Program; Emergency Provider Emergency Medicine; PCP Student in an Organized Health Care Education/Training Program; Visit Provider Radiology Diagnostic Radiology | DX: R09.02 Hypoxemia (principal) | CPT/HCPCS: 71045 ==

== ENCOUNTER 2024-10-09 00:10 | Outpatient (BNV) | payer MEDICARE, MEDICAID, SELFPAY | END 2024-10-13 11:20 | PROVIDERS: Admitting Provider Student in an Organized Health Care Education/Training Program; Emergency Provider Emergency Medicine; PCP Student in an Organized Health Care Education/Training Program; Visit Provider Radiology Diagnostic Radiology | DX: I51.7 Cardiomegaly (principal) | CPT/HCPCS: 71045 ==

== ENCOUNTER → 2024-10-09 00:10 | Outpatient (BNV) | payer MEDICARE, MEDICAID, SELFPAY | PROVIDERS: Admitting Provider Student in an Organized Health Care Education/Training Program; Emergency Provider Emergency Medicine; PCP Student in an Organized Health Care Education/Training Program; Visit Provider Physician Assistant | DX: I95.9 Hypotension, unspecified (principal) | CPT/HCPCS: 99232 ==

== ENCOUNTER → 2024-10-09 00:10 | Outpatient (BNV) | payer MEDICARE, MEDICAID, SELFPAY | PROVIDERS: Admitting Provider Student in an Organized Health Care Education/Training Program; Emergency Provider Emergency Medicine; PCP Student in an Organized Health Care Education/Training Program; Visit Provider Internal Medicine | DX: K20.90 Esophagitis, unspecified without bleeding (principal); R63.0 Anorexia; N17.9 Acute kidney failure, unspecified; I12.9 Hypertensive chronic kidney disease with stage 1 through stage 4 chronic kidney disease, or unspecified chronic kidney disease; N18.4 Chronic kidney disease, stage 4 (severe) | CPT/HCPCS: 99222 ==

== ENCOUNTER → 2024-10-09 00:10 | Outpatient (BNV) | payer MEDICARE, MEDICAID, SELFPAY | PROVIDERS: Admitting Provider Student in an Organized Health Care Education/Training Program; Emergency Provider Emergency Medicine; PCP Student in an Organized Health Care Education/Training Program; Visit Provider Surgery | DX: K43.9 Ventral hernia without obstruction or gangrene (principal) | CPT/HCPCS: 99232 ==

== ENCOUNTER 2024-10-21 14:00 | Emergency (ER) | payer MEDICARE, MEDICAID, SELFPAY ==
--- NOTE | ~2024-10-21 | US_ITS ---
EXAMINATION: US TRIPLEX LOWER EXTREMITY, RIGHT CLINICAL INFORMATION: Edema, right lower extremity. COMPARISON: None available. TECHNIQUE: Color-flow triplex imaging with spectral analysis and compression Doppler were performed on the right lower extremity. FINDINGS: Respiratory variation, normal compression and augmented flow are present throughout the interrogated common femoral vein, superficial femoral vein, profunda femoral vein, popliteal vein and midcalf peroneal and posterior tibial venous segments.. There is no Hayden's cyst. Edema pattern soft tissues of the lower extremity without fluid collection. US/US venous duplex LE RT IMPRESSION: No acute deep venous thrombosis in the interrogated veins, right lower extremity. Negative for DVT. Electronically signed by: Vasquez Diaz MD 10/21/2024 03:26 PM EDT
[2024-10-21 14:27] VITALS: BP 101/51; PULSE 76; RESP 18; TEMP 36.4; O2SAT 97; BMI 27.5
--- NOTE | 2024-10-21 14:27 | ED.GENADULT ---
HPI - General Adult General Chief complaint: Extremity Injury, Lower Stated complaint: Blood clot? Sent by Time Seen by Provider: 10/21/24 17:46 Related Data Home Medications ?Medication ?Instructions ?Recorded ?Confirmed carvedilol 25 mg tablet 25 mg PO BID 06/22/20 10/08/24 cholecalciferol (vitamin D3) 50 50 mcg PO DAILY 06/22/20 10/08/24 mcg (2,000 unit) capsule gabapentin 300 mg capsule 300 mg PO TID 03/31/24 10/08/24 isosorbide mononitrate 30 mg 90 mg PO DAILY 03/31/24 10/08/24 tablet,extended release 24 hr omeprazole 40 mg capsule,delayed 40 mg PO DAILY@0630 03/31/24 10/08/24 release torsemide 20 mg tablet 40 mg PO DAILY 03/31/24 10/08/24 albuterol sulfate 90 mcg/actuation 2 puff inhalation Q6H PRN 10/08/24 10/08/24 aerosol inhaler Shortness Of Breath Or Wheezing amlodipine 10 mg tablet 10 mg PO DAILY 10/08/24 10/08/24 atorvastatin 40 mg tablet 40 mg PO DAILY 10/08/24 10/08/24 budesonide 160 mcg-glycopyr 9 2 inh inhalation BID 10/08/24 10/08/24 mcg-formot 4.8 mcg/actuation HFA inhaler (Breztri Aerosphere) buprenorphine 20 mcg/hour weekly 1 patch topical FR 10/08/24 10/08/24 transdermal patch (Butrans) empagliflozin 10 mg tablet 10 mg PO DAILY 10/08/24 10/08/24 (Jardiance) hydroxyzine pamoate 25 mg capsule 25 mg PO QID 10/08/24 10/08/24 lisinopril 10 mg tablet 10 mg PO BID 10/08/24 10/08/24 Previous Rx's ?Medication ?Instructions ?Recorded walker #1 ea 06/07/20 prednisone 20 mg tablet 40 mg (2 x 20 mg) PO DAILY 4 days 10/16/24 #8 tabs Allergies Allergy/AdvReac Type Severity Reaction Status Date / Time Sulfa (Sulfonamide Allergy Mild N/V Verified 10/21/24 14:29 Antibiotics) Sulfamethoxazole Allergy Unknown vomiting Uncoded 10/12/24 12:36 PMFSH Past Medical History Medical History CKD (chronic kidney disease) stage 3, GFR 30-59 ml/min Osteosarcoma Diabetes COPD (chronic obstructive pulmonary disease) HTN (hypertension) Surgical History History of partial hysterectomy History of cholecystectomy History of tubal ligation H/O excision of ganglion cyst History of umbilical hernia repair History of repair of inguinal hernia Social History Social History Household Members: None Housing: Assisted Living Facility Are you a primary intensive care unit registered nurse to a significant other at home: No Do you presently have visiting nurse or other home services: No Alcohol intake: never Patient Tobacco Use Status: Former Tobacco user Advance Directives: No Advance Directives Information Provided: Yes service: No Current occupational status: disabled Current occupation: left handed Physical Exam ED Vital Signs: BMI result Body Mass Index 27.5 Course Course Course Narrative: This is a rapid medical exam performed by Gab Guzman NP: Additional HPI, ROS, PE not included below will be deferred to primary provider. 79 yo female with PMHx of CKD 4, HTN, presents to ED due to right lower leg swelling. She states recent hospitalization, PCP wants to R/O DVT. PE: R LE with significant edema, no erythema, Plan: labs, venous US Medical Decision Making Lab Data 10/21/24 15:21 10/21/24 15:21 Labs: Lab Results 10/21/24 Range/Units 15:21 WBC 10.6 (4.8-10.8) X10*3/uL RBC 2.76 L (4.20-5.50) X10*6/uL Hgb 9.1 L (12.0-16.0) g/dl Hct 27.0 L (37.0-47.0) % MCV 97.8 (80.0-98.0) fL MCH 33.0 (27.0-33.0) pg MCHC 33.7 (31.0-35.0) g/dl RDW 14.2 (11.0-16.0) % Plt Count 268 D (160-400) X10*3/uL MPV 10.3 (9.4-12.3) fL Immature Gran % (Auto) 1.0 H (0.0-0.4) % Neut % (Auto) 67.4 (45-73) % Lymph % (Auto) 16.1 L (20-40) % [place] % (Auto) 11.2 H (2-11) % Eos % (Auto) 4.2 H (0-4) % Baso % (Auto) 0.1 (0-2) % Lymph # (Auto) 1.7 (1.2-4.9) X10*3/uL [place] # (Auto) 1.2 (0.1-1.2) X10*3/uL Eos # (Auto) 0.4 (0.0-0.4) X10*3/uL Baso # (Auto) 0.0 (0.0-0.2) X10*3/uL Abs Immat Gran (auto) 0.11 H (0.00-0.03) X10*3/uL Absolute Neuts (auto) 7.1 (2.0-8.3) x10*3/uL Absolute Nucleated RBC 0.000 (0.0-0.012) X10*3/uL Nucleated RBC % (auto) 0.0 (0.0-0.2) /100WBC PT 11.4 (10.9-12.4) SEC INR 1.0 (0.9-1.1) Sodium 143 (135-145) mmol/L Potassium 4.9 (3.3-5.1) mmol/L Chloride 109 H (96-108) mmol/L Carbon Dioxide 25 (22-29) mmol/L Anion Gap 14 (12-20) BUN 42 H (9-16) mg/dL Creatinine 1.66 H (0.5-1.4) mg/dL Estim Creat Clear Calc 20.7 Estimated GFR 30 Random Glucose 120 H (60-115) mg/dL Calcium 8.1 L D (8.4-10.2) mg/dL Total Bilirubin 0.3 (0.0-1.0) mg/dL AST 17 (5-31) U/L ALT 16 (0-31) U/L Alkaline Phosphatase 88 (39-117) U/L Total Protein 5.6 L (6.5-8.0) g/dL Albumin 3.5 (3.5-5.0) g/dL Discharge Plan Discharge Clinical Impression: Localized swelling of right lower leg Patient Disposition: Left W/O Completing Treatment Prescriptions: No Action carvedilol 25 mg tablet 25 mg PO BID Rx Instructions: must administer with a meal/food cholecalciferol (vitamin D3) 50 mcg (2,000 unit) capsule 50 mcg PO DAILY (DME) patricia Misc See Rx Instructions .ROUTE .MEDSUPPLY Qty: 1 0RF Rx Instructions: As directed albuterol sulfate 90 mcg/actuation HFA aerosol inhaler 2 puff inhalation Q6H PRN (Reason: Shortness Of Breath Or Wheezing) hydroxyzine pamoate 25 mg capsule 25 mg PO QID buprenorphine [Butrans] 20 mcg/hour patch weekly 1 patch topical FR Jardiance 10 mg tablet 10 mg PO DAILY Breztri Aerosphere 160-9-4.8 mcg/actuation HFA aerosol inhaler 2 inh inhalation BID amlodipine 10 mg tablet 10 mg PO DAILY lisinopril 10 mg tablet 10 mg PO BID atorvastatin 40 mg tablet 40 mg PO DAILY prednisone 20 mg Tablet 40 mg PO DAILY 4 Days Qty: 8 0RF gabapentin 300 mg capsule 300 mg PO TID torsemide 20 mg tablet 40 mg PO DAILY omeprazole 40 mg capsule,delayed release(DR/EC) 40 mg PO DAILY@0630 isosorbide mononitrate 30 mg tablet extended release 24 hr 90 mg PO DAILY Discharge Date/Time: 10/21/24 19:02
[2024-10-21 15:26] LABS: MANUAL DIFF FLAG NO
[2024-10-21 15:27] LABS: Basophils Percent Auto 0.1 % (0-2); Eosinophils Absolute Auto 0.4 X10*3/uL (0.0-0.4); Eosinophils Percent Auto 4.2 % (0-4); Hemoglobin 9.1 g/dl (12.0-16.0); Imm Gran Abs Auto 0.11 X10*3/uL (0.00-0.03); Lymphocytes Absolute Auto 1.7 X10*3/uL (1.2-4.9); Lymphocytes Percent Auto 16.1 % (20-40); Mean Corpuscular HGB Conc 33.7 g/dl (31.0-35.0); Mean Corpuscular Volume 97.8 fL (80.0-98.0); Mean Platelet Volume 10.3 fL (9.4-12.3); Monocytes Absolute Auto 1.2 X10*3/uL (0.1-1.2); Monocytes Percent Auto 11.2 % (2-11); Neutrophils Absolute Auto 7.1 x10*3/uL (2.0-8.3); Neutrophils Percent Auto 67.4 % (45-73); Platelet Count 268 X10*3/uL (160-400); Red Blood Count 2.76 X10*6/uL (4.20-5.50); Red Cell Distribution Width 14.2 % (11.0-16.0); White Blood Count 10.6 X10*3/uL (4.8-10.8)
[2024-10-21 15:46] LABS: Prothrombin Time 11.4 SEC (10.9-12.4)
[2024-10-21 15:47] LABS: Alanine Aminotransferase 16 U/L (0-31); Albumin Level 3.5 g/dL (3.5-5.0); Anion Gap 14 (12-20); Aspartate Amino Transferase 17 U/L (5-31); Bilirubin Total 0.3 mg/dL (0.0-1.0); Blood Urea Nitrogen 42 mg/dL (9-16); Calcium 8.1 mg/dL (8.4-10.2); Carbon Dioxide 25 mmol/L (22-29); Chloride 109 mmol/L (96-108); Creatinine Clr Calc Pharmacy 20.7; Estimated Glomerular Filt Rate 30; Glucose Random 120 mg/dL (60-115); Potassium 4.9 mmol/L (3.3-5.1); Sodium 143 mmol/L (135-145); Total Protein 5.6 g/dL (6.5-8.0)
[2024-10-21 16:08] LABS: Alkaline Phosphatase 88 U/L (39-117)
== END 2024-10-21 19:02 | disposition left against medical advice (07) ==
PROVIDERS: Registered Nurse Emergency; Emergency Provider Emergency Medicine; PCP Student in an Organized Health Care Education/Training Program
DX: R60.0 Localized edema (principal); E11.9 Type 2 diabetes mellitus without complications; I10 Essential (primary) hypertension
CPT/HCPCS: 36415; 80053; 85025; 85610; 93971; 99281; 99284

== ENCOUNTER → 2024-10-21 14:29 | Outpatient (BNV) | payer MEDICARE, MEDICAID, SELFPAY | PROVIDERS: PCP Student in an Organized Health Care Education/Training Program; Visit Provider Radiology Diagnostic Radiology | DX: R60.0 Localized edema (principal) | CPT/HCPCS: 93971 ==